=== PATIENT | female | born 1965 | race Caucasian/White ===

== ENCOUNTER 2024-08-20 00:32 | Emergency (ER) | payer OTHER ==
--- OUTSIDE RECORDS SUMMARY | 2024-08-20 00:36 | XMS REPORT | Continuity of Care Document ---
Author Name Unknown Address [address] [place] [address] [facility] thconnect Address 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 Name Role Phone KATELYNN MCNEAL Primary Care Physician Unava ilable Miguelito Spring Attending Clinician Unavailable Shashank Larkin Attending Clinician Unavailable Libby Gates Attending Clinician Unavailable RADIOLOGY Attending Clinician Unavailable Noemy Attending Clinician UnavailDanielle Mcgraw Attending Clinician Unavailable Danielle Barragan Attending Clinician [phone] Ruel Infante Attending Clinician Unavailable Ra Hughes MD Attending Clinician [phone] Atilio Hutchinson MD Attending Clinician [phone] ATILIO HUTCHINSON Attending Clinician UnavailWILLIAN Dawson Attending Clinician UnavailWillian Velazquez MD Attending Clinician [phone] [facility] Attending Clinician Unavailable Millie Trinh Attending Clinician Unavailable Millie Trinh Attending Clinician [phone] [facility]An[facility] Attending Clinician Unavail able Katelynn Mcneal Attending Clinician [phone] GC_SEFP_Mrozinski_G Attending Clinician Unavaila ble Doctor Unassigned, [place] Attending Clinician U govindailSuyapa Shankar Attending Clinician UnavailADRIANA Celis Attending Clinician Unavailab Adriana Eckert Attending Clinician Lizzy Prado Admitting Clinician Unavailable Kerry_TREVOR Admitting Clinician Unavailchar e Physician, No Primary or Family Admitting Clinic isaiah Unavailable WILLIAN KUHN Admitting Clinician Unavaila ble GC_BATC_Foholly-Gunatashae Admitting Clinician Unavail able GC_SEFP_Mrozinski_G Admitting Clinician Unavaila ble Payers Payer Name Policy Type Policy Number Effective Date Expirati on Date Source [employer] NO PREMIUM HMO [id number] 2023 00:00:00 [employer] (MEDICARE REPLACEMENT HMO) [id number] 2022 00:00:00 [employer] (MEDICARE REPLACEMENT/ADVANTA GE - PPO) [id number] Problems Condition Name Condition Details Condition Category Status Onset Date Resolution Date Last Treatment Date Treating Clinician Comments Source Major depressive disorder Major Depressive Disorder Problem Active 2023-08 00:00: 00 [facility] Lumbar radiculopa thy Lumbar Radiculopa thy Problem Active 2023-08 0 00:00: 00 [facility] Pain in right foot Pain in Right Foot Problem Active 2023-08 0 00:00: 00 [facility] Insomnia Insomnia Problem Active 5-14 00:00: 00 [facility] Opioid dependence Opioid Dependence Problem Active 2022-08 0-03 00:00: 00 [facility] Bilateral ingrowing nail of toe of feet Bilateral Ingrowing Nail of Toe of Feet Problem Active 2022-08 0-03 00:00: 00 [facility] Stomatitis Stomatitis Problem Active 9-06 00:00: 00 [facility] Acute vaginitis Acute Vaginitis Problem Active 6-30 00:00: 00 [facility] Acute sinusitis Acute Sinusitis Problem Active 3-22 00:00: 00 [facility] Seasonal allergic rhinitis Seasonal Allergic Rhinitis Problem Active 11-13 00:00: 00 [facility] Low back pain Low Back Pain Problem Active 11-13 00:00: 00 [facility] 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 2 diabetes mellitus Peripheral Neuropathy Due to Type 2 Diabetes Mellitus Problem Active 11-13 00:00: 00 [facility] Type 2 diabetes mellitus Type 2 Diabetes Mellitus Problem Active 11-06 00:00: 00 [facility] Depressive disorder Depressive Disorder Problem Active 11-06 00:00: 00 [facility] Malaise and fatigue Malaise and Fatigue Problem Active 11-06 00:00: 00 [facility] Hyperglyce monik due to type 2 diabetes mellitus Hyperglyce monik Due to Type 2 Diabetes Mellitus Problem Active 2021-08 00:00: 00 [facility] Candidiasi s of vagina Candidiasi s of Vagina Problem Active 2021-08 00:00: 00 [facility] Diabetic peripheral neuropathy Diabetic Peripheral Neuropathy Problem Active 2021-08 00:00: 00 [facility] Type 2 diabetes mellitus Type 2 Diabetes Mellitus Problem Active 02-18 00:00: 00 [facility] Hyperlipid emia Hyperlipid emia Problem Active 02-18 00:00: 00 [facility] Anxiety Anxiety Problem Active 02-18 00:00: 00 [facility] Neuropathy Neuropathy Problem Active 02-18 00:00: 00 [facility] Gastroesop hageal reflux disease without esophagiti s Gastroesop hageal Reflux Disease without Esophagiti s Problem Active 02-18 00:00: 00 [facility] Cirrhosis of liver Cirrhosis of Liver Problem Active 02-18 00:00: 00 [facility] History of alcoholism History of Alcoholism Problem Active 02-18 00:00: 00 [facility] No known active problems No known active problems Disease [facility] Allergies, Adverse Reactions, Alerts Allergy Name Allergy Type Status Severity Reaction(s) Onset Date Inactive Date Treating Clinician Comments Source No Known Allergie s DA Active U 12-18 00:00: 00 [facility] No Known Allergie s DA Active U 09-19 00:00: 00 [facility] NO KNOWN ALLERGIE S Drug Class Active [facility] Family History Family Member Diagnosis Comments Start Date Stop Date Sourc e Mother [id number] 2021-10-02 00:00:00 2021-10-02 00:00:00 [facility] Mother Cancer, lung 2021-10-02 00:00:00 2021-10-02 00:00:00 [facility] Social History Social Habit Start Date Stop Date Quantity Comments Source Health-related Behavior 2021-10-02 00:00:00 [facility] Alcohol intake [facility] Sex Assigned At Female [facility] Exposure to SARS-CoV-2 (event) 2022-06-03 00:00:00 2022-06-13 09:26:00 Not sure [facility] Tobacco use and exposure 2022-06-13 00:00:00 2022-06-13 00:00:00 Smokeless tobacco non-user [facility] Smoking Status Start Date Stop Date Source Never Smoker [facility] Practice Unknown if ever smoked [facility] Medications Ordered Medication Name Filled Medication Name Start Date Stop Date Current Medication? Ordering Clinician Indication Dosage Frequency Signature (SIG) Comments Components Source iodixanoL (VISIPAQUE 270-150 mL) injection 80 mL 05-08 16:47: 00 05-08 16:48 :00 No [id number] 80mL 80 mL, Intravenou s, ONCE, 1 dose, On Fri05/08/22 at 1200, Routine [facility] ibuprofen 800 mg tablet TAKE 1 TABLET BY MOUTH EVERY DAY NEEDED ibuprofen 800 mg tablet TAKE 1 TABLET BY MOUTH EVERY DAY NEEDED 04-11 00:00: 00 No 1 Q1D ibuprofen 800 mg tablet TAKE 1 TABLET BY MOUTH EVERY DAY NEEDED [facility] ONETOUCH DELICA PLUS LANCET 33 gauge Misc 03-26 00:00: 00 Yes USE TO TEST BLOOD GLUCOSE TWICE DAILY [facility] ibuprofen 800 mg tablet 01-08 00:00: 00 No 1{table t} QD take 1 tablet by oral route every day with food as needed [Pat Resp = 0 pct;] [facility] s diazepam 5 mg tablet 10-02 10:48: 00 No take 1 tablet by oral route every evening as needed for severe anxiety. [Pat Resp = 0 pct;] [facility] s gabapentin 300 mg ORAL TABLET 10-02 00:00: 00 No Take 1 capsule by mouth (3) three times daily. [Pat Resp = 0 pct;] [facility] s Latuda 80 mg tablet 10-02 00:00: 00 No take 1 tablet by oral route every evening with food (at least 350 calories) [Pat Resp = 0 pct;] [facility] s omeprazole 20 mg ORAL CAPSULE 10-02 00:00: 00 No Take 1 capsules by mouth daily. [Pat Resp = 0 pct;] [facility] s hydroxyzine pamoate 50 mg capsule 10-02 00:00: 00 No take 1 capsule by oral route 3 times every day as needed for anxiety [Pat Resp = 0 pct;] [facility] lamotrigine 200 mg tablet 10-02 00:00: 00 No take 1 tablet by oral route every evening. [Pat Resp = 0 pct;] [facility] trazodone 100 mg tablet 10-02 00:00: 00 No take 2 tablet by oral route daily [Pat Resp = 0 pct;] [facility] metformin 500 mg tablet 10-02 00:00: 00 No 2{table t} Q1D take 2 tablet by oral route every day with morning and evening meals [Pat Resp = 0 pct;] [facility] oxycodone-a cetaminophe n 7.5 mg-325 mg tablet 10-02 00:00: 00 10-02 00:00 :00 No take 1 tablet by oral by mouth twice daily as needed for pain. [Pat Resp = 0 pct;] [facility] Accu-Chek Guide test strips USE CHECK BLOOD SUGAR EVERY DAY Accu-Chek Guide test strips USE CHECK BLOOD SUGAR EVERY DAY No Accu-Chek Guide test strips USE CHECK BLOOD SUGAR EVERY DAY [facility] Accu-Chek Softclix Lancets Accu-Chek Softclix Lancets No Accu-Chek Softclix Lancets [facility] fluconazole 100 mg tablet fluconazole 100 mg tablet No fluconazol e 100 mg tablet [facility] fluconazole 150 mg tablet Take 1 tablet by oral route for 1 day. fluconazole 150 mg tablet Take 1 tablet by oral route for 1 day. No 1 fluconazol e 150 mg tablet Take 1 tablet by oral route for 1 day. [facility] hydrochloro thiazide 25 mg tablet hydrochloro thiazide 25 mg tablet No hydrochlor othiazide 25 mg tablet [facility] hydroxyzine pamoate 50 mg capsule TAKE 1 CAPSULE BY MOUTH THREE TIMES DAILY NEEDED FOR ANXIETY hydroxyzine pamoate 50 mg capsule TAKE 1 CAPSULE BY MOUTH THREE TIMES DAILY NEEDED FOR ANXIETY No hydroxyzin e pamoate 50 mg capsule TAKE 1 CAPSULE BY MOUTH THREE TIMES DAILY NEEDED FOR ANXIETY [facility] ibuprofen 800 mg tablet TAKE 1 TABLET BY MOUTH EVERY DAY WITH FOOD NEEDED ibuprofen 800 mg tablet TAKE 1 TABLET BY MOUTH EVERY DAY WITH FOOD NEEDED No ibuprofen 800 mg tablet TAKE 1 TABLET BY MOUTH EVERY DAY WITH FOOD NEEDED [facility] Jardiance 25 mg tablet Jardiance 25 mg tablet No Jardiance 25 mg tablet [facility] metformin 500 mg tablet TAKE 2 TABLETS BY MOUTH EVERY DAY WITH THE MORNING AND EVENING MEAL metformin 500 mg tablet TAKE 2 TABLETS BY MOUTH EVERY DAY WITH THE MORNING AND EVENING MEAL No metformin 500 mg tablet TAKE 2 TABLETS BY MOUTH EVERY DAY WITH THE MORNING AND EVENING MEAL [facility] omeprazole 40 mg capsule,del ayed release Take 1 capsule every day by oral route for 90 days. omeprazole 40 mg capsule,del ayed release Take 1 capsule every day by oral route for 90 days. No 1capsul e(s) Q1D omeprazole 40 mg capsule,de layed release Take 1 capsule every day by oral route for 90 days. [facility] rosuvastati n 20 mg tablet rosuvastati n 20 mg tablet No rosuvastat in 20 mg tablet [facility] True Metrix Glucose Meter USE DIRECTED True Metrix Glucose Meter USE DIRECTED No True Metrix Glucose Meter USE DIRECTED [facility] True Metrix Glucose Test Strip USE DIRECTED TO TEST BLOOD GLUCOSE LEVELS True Metrix Glucose Test Strip USE DIRECTED TO TEST BLOOD GLUCOSE LEVELS No True Metrix Glucose Test Strip USE DIRECTED TO TEST BLOOD GLUCOSE LEVELS [facility] Accu-Chek Softclix Lancets USE TO CHECK BLOOD SUGAR DIRECTED DAILY Accu-Chek Softclix Lancets USE TO CHECK BLOOD SUGAR DIRECTED DAILY No Accu-Chek Softclix Lancets USE TO CHECK BLOOD SUGAR DIRECTED DAILY [facility] gabapentin 300 mg capsule TAKE 1 CAPSULE BY MOUTH THREE TIMES DAILY gabapentin 300 mg capsule TAKE 1 CAPSULE BY MOUTH THREE TIMES DAILY No gabapentin 300 mg capsule TAKE 1 CAPSULE BY MOUTH THREE TIMES DAILY [facility] hydrocodone 10 mg-acetamin ophen 325 mg tablet TAKE 1 TABLET BY MOUTH TWICE DAILY NEEDED FOR PAIN. MAX 2 PER DAY hydrocodone 10 mg-acetamin ophen 325 mg tablet TAKE 1 TABLET BY MOUTH TWICE DAILY NEEDED FOR PAIN. MAX 2 PER DAY No hydrocodon e 10 mg-acetami nophen 325 mg tablet TAKE 1 TABLET BY MOUTH TWICE DAILY NEEDED FOR PAIN. MAX 2 PER DAY [facility] Jardiance 25 mg tablet TAKE 1 TABLET BY MOUTH EVERY DAY Jardiance 25 mg tablet TAKE 1 TABLET BY MOUTH EVERY DAY No 1 Q1D Jardiance 25 mg tablet TAKE 1 TABLET BY MOUTH EVERY DAY [facility] metformin 500 mg tablet TAKE 2 TABLETS BY MOUTH EVERY DAY WITH THE MORNING AND EVENING MEAL metformin 500 mg tablet TAKE 2 TABLETS BY MOUTH EVERY DAY WITH THE MORNING AND EVENING MEAL No metformin 500 mg tablet TAKE 2 TABLETS BY MOUTH EVERY DAY WITH THE MORNING AND EVENING MEAL [facility] methocarbam ol 500 mg tablet TAKE 1 TABLET BY MOUTH TWICE DAILY NEEDED methocarbam ol 500 mg tablet TAKE 1 TABLET BY MOUTH TWICE DAILY NEEDED No methocarba mol 500 mg tablet TAKE 1 TABLET BY MOUTH TWICE DAILY NEEDED [facility] omeprazole 40 mg capsule,del ayed release TAKE 1 CAPSULE BY MOUTH EVERY DAY omeprazole 40 mg capsule,del ayed release TAKE 1 CAPSULE BY MOUTH EVERY DAY No omeprazole 40 mg capsule,de layed release TAKE 1 CAPSULE BY MOUTH EVERY DAY [facility] OneTouch Delica Plus Lancet 30 gauge DIRECTED TWICE DAILY OneTouch Delica Plus Lancet 30 gauge DIRECTED TWICE DAILY No OneTouch Delica Plus Lancet 30 gauge DIRECTED TWICE DAILY [facility] OneTouch Delica Plus Lancet 33 gauge USE TO CHECK BLOOD SUGAR TWICE DAILY OneTouch Delica Plus Lancet 33 gauge USE TO CHECK BLOOD SUGAR TWICE DAILY No OneTouch Delica Plus Lancet 33 gauge USE TO CHECK BLOOD SUGAR TWICE DAILY [facility] OneTouch Verio test strips CHECK BLOOD SUGAR TWICE DAILY OneTouch Verio test strips CHECK BLOOD SUGAR TWICE DAILY No OneTouch Verio test strips CHECK BLOOD SUGAR TWICE DAILY [facility] rosuvastati n 20 mg tablet TAKE 1 TABLET BY MOUTH EVERY DAY rosuvastati n 20 mg tablet TAKE 1 TABLET BY MOUTH EVERY DAY No rosuvastat in 20 mg tablet TAKE 1 TABLET BY MOUTH EVERY DAY [facility] Alcohol Pads Use as directed Alcohol Pads Use as directed No Alcohol Pads Use as directed [facility] trazodone 50 mg tablet TAKE 1 TABLET BY MOUTH EVERY DAY AT BEDTIME FOR INSOMNIA trazodone 50 mg tablet TAKE 1 TABLET BY MOUTH EVERY DAY AT BEDTIME FOR INSOMNIA No 1 Q1D trazodone 50 mg tablet TAKE 1 TABLET BY MOUTH EVERY DAY AT BEDTIME FOR INSOMNIA [facility] naloxone 4 mg/actuatio n nasal spray CALL 911. SPR CONTENTS OF ONE SPRAYER (0.1ML) INTO ONE NOSTRIL. REPEAT IN 2-3 MIN IF SYMPTOMS OF OPIOID EMERGENCY PERSIST, ALTERNATE NOSTRILS naloxone 4 mg/actuatio n nasal spray CALL 911. SPR CONTENTS OF ONE SPRAYER (0.1ML) INTO ONE NOSTRIL. REPEAT IN 2-3 MIN IF SYMPTOMS OF OPIOID EMERGENCY PERSIST, ALTERNATE NOSTRILS No naloxone 4 mg/actuati on nasal spray CALL 911. SPR CONTENTS OF ONE SPRAYER (0.1ML) INTO ONE NOSTRIL. REPEAT IN 2-3 MIN IF SYMPTOMS OF OPIOID EMERGENCY PERSIST, ALTERNATE NOSTRILS [facility] fluconazole 150 mg tablet 1 po qd x 3 days fluconazole 150 mg tablet 1 po qd x 3 days No fluconazol e 150 mg tablet 1 po qd x 3 days [facility] ondansetron 4 mg disintegrat ing tablet DISSOLVE 1 TABLET ON THE TONGUE EVERY 6 HOURS NEEDED FOR NAUSEA OR VOMITING ondansetron 4 mg disintegrat ing tablet DISSOLVE 1 TABLET ON THE TONGUE EVERY 6 HOURS NEEDED FOR NAUSEA OR VOMITING No ondansetro n 4 mg disintegra ting tablet DISSOLVE 1 TABLET ON THE TONGUE EVERY 6 HOURS NEEDED FOR NAUSEA OR VOMITING [facility] OneTouch Verio Flex Meter USE DIRECTED TO CHECK BLOOD GLUCOSE OneTouch Verio Flex Meter USE DIRECTED TO CHECK BLOOD GLUCOSE No OneTouch Verio Flex Meter USE DIRECTED TO CHECK BLOOD GLUCOSE [facility] Vital Signs Vital Name Observation Time Observation Value Comments S ource BP Diastolic 2024-06-24 00:00:00 79 mm[Hg] [facility] Height 2024-06-24 00:00:00 67 [in_i] [facility] Body Weight 2024-06-24 00:00:00 169 [lb_av] [facility] BMI (Body Mass Index) 2024-06-24 00:00:00 26.5 kg/m2 [facility] BP Systolic 2024-06-24 00:00:00 145 mm[Hg] [facility] Body Weight 2024-05-11 00:00:00 174 [lb_av] [facility] BMI (Body Mass Index) 2024-05-11 00:00:00 27.3 kg/m2 [facility] Height 2024-05-11 00:00:00 67 [in_i] [facility] BP Diastolic 2024-05-11 00:00:00 74 mm[Hg] [facility] BP Systolic 2024-05-11 00:00:00 148 mm[Hg] [facility] Height 2024-01-06 00:00:00 67 [in_i] [facility] BP Diastolic 2024-01-06 00:00:00 79 mm[Hg] [facility] Body Weight 2024-01-06 00:00:00 171 [lb_av] [facility] BP Systolic 2024-01-06 00:00:00 146 mm[Hg] [facility] BMI (Body Mass Index) 2024-01-06 00:00:00 26.8 kg/m2 [facility] Body Weight 2023-05-27 00:00:00 175 [lb_av] [facility] BP Diastolic 2023-05-27 00:00:00 80 mm[Hg] [facility] BP Systolic 2023-05-27 00:00:00 132 mm[Hg] [facility] Height 2023-05-27 00:00:00 67 [in_i] [facility] BMI (Body Mass Index) 2023-05-27 00:00:00 27.4 kg/m2 [facility] BP Systolic 2023-04-30 00:00:00 132 mm[Hg] [facility] Body Weight 2023-04-30 00:00:00 178 [lb_av] [facility] BP Diastolic 2023-04-30 00:00:00 78 mm[Hg] [facility] BMI (Body Mass Index) 2023-04-30 00:00:00 27.9 kg/m2 [facility] Height 2023-04-30 00:00:00 67 [in_i] [facility] BP Diastolic 2023-02-21 00:00:00 77 mm[Hg] [facility] Height 2023-02-21 00:00:00 67 [in_i] [facility] BMI (Body Mass Index) 2023-02-21 00:00:00 28.5 kg/m2 [facility] BP Systolic 2023-02-21 00:00:00 137 mm[Hg] [facility] Body Weight 2023-02-21 00:00:00 182 [lb_av] [facility] BP Diastolic 2022-11-13 00:00:00 79 mm[Hg] [facility] Height 2022-11-13 00:00:00 67 [in_i] [facility] BMI (Body Mass Index) 2022-11-13 00:00:00 29 kg/m2 [facility] BP Systolic 2022-11-13 00:00:00 131 mm[Hg] [facility] Body Weight 2022-11-13 00:00:00 185 [lb_av] [facility] BP Diastolic 2022-11-06 00:00:00 78 mm[Hg] [facility] Height 2022-11-06 00:00:00 67 [in_i] [facility] BMI (Body Mass Index) 2022-11-06 00:00:00 29.4 kg/m2 [facility] BP Systolic 2022-11-06 00:00:00 142 mm[Hg] [facility] Body Weight 2022-11-06 00:00:00 188 [lb_av] [facility] BP Diastolic 2022-08-21 00:00:00 83 mm[Hg] [facility] Height 2022-08-21 00:00:00 67 [in_i] [facility] BMI (Body Mass Index) 2022-08-21 00:00:00 29 kg/m2 [facility] BP Systolic 2022-08-21 00:00:00 141 mm[Hg] [facility] Body Weight 2022-08-21 00:00:00 185 [lb_av] [facility] BP Diastolic 2022-06-14 00:00:00 80 mm[Hg] [facility] Height 2022-06-14 00:00:00 67 [in_i] [facility] BMI (Body Mass Index) 2022-06-14 00:00:00 26.9 kg/m2 [facility] BP Systolic 2022-06-14 00:00:00 110 mm[Hg] [facility] Body Weight 2022-06-14 00:00:00 172 [lb_av] [facility] Systolic blood pressure 2022-06-13 14:39:00 133 mm[Hg] [facility] Diastolic blood pressure 2022-06-13 14:39:00 81 mm[Hg] [facility] Heart rate 2022-06-13 14:39:00 61 /min [facility] Body temperature 2022-06-13 14:39:00 36.78 Amber [facility] Body height 2022-06-13 14:39:[address] [facility] Body weight 2022-06-13 14:39:[address] [facility] BMI 2022-06-13 14:39:00 27.00 kg/m2 [facility] Systolic blood pressure 2022-04-11 12:43:00 128 mm[Hg] [facility] Diastolic blood pressure 2022-04-11 12:43:00 57 mm[Hg] [facility] Heart rate 2022-04-11 12:43:00 73 /min [facility] Body temperature 2022-04-11 12:43:00 37 Amber [facility] Respiratory rate 2022-04-11 12:43:00 16 /min [facility] Body height 2022-04-11 12:43:[address] [facility] Body weight 2022-04-11 12:43:[address] [facility] BMI 2022-04-11 12:43:00 26.94 kg/m2 [facility] BP Diastolic 2022-02-18 00:00:00 74 mm[Hg] [facility] Height 2022-02-18 00:00:00 67 [in_i] [facility] BMI (Body Mass Index) 2022-02-18 00:00:00 28 kg/m2 [facility] BP Systolic 2022-02-18 00:00:00 134 mm[Hg] [facility] Body Weight 2022-02-18 00:00:00 2864 [oz_av] [facility] Procedures Procedure Date / Time Performed Performing Clinician Source MRI, lumbar spine, w/o contrast 2024-06-24 00:00:00 [facility] MAMMO, screening, digital, bilateral, w/ CAD 2024-01-06 00:00:00 [facility] US, liver 2023-05-27 00:00:00 [facility] MAMMO, screening, digital, bilateral, w/ CAD 2023-02-21 00:00:00 [facility] MAMMO, 3D rendering, w/o image post-processing 2022-08-21 00:00:00 [facility] MAMMO, screening, digital, bilateral 2022-08-12 00:00:00 [facility] MAMMO, screening, bilateral 2022-08-12 00:00:00 [facility] Nominal Fee 2022-01-07 00:00:00 [facility] Urinalysis, Auto W/O Scope 2022-01-07 00:00:00 [facility] Established Patient Office Visit-Level Three 2022-01-07 00:00:00 [facility] Trichomonas and Tracy / Wet [place] (T&M) 2022-01-07 00:00:00 [facility] Urinalysis culture and sensitivity 2022-01-07 00:00:00 [facility] Chylmd Trach DNA Amp Probe 2022-01-07 00:00:00 [facility] N.Gonorrhea DNA Amp Prob 2022-01-07 00:00:00 [facility] MICROALBUMIN QUANTITATIVE 2022-01-07 00:00:00 [facility] Albumin Creatinine Ratio 2022-01-07 00:00:00 [facility] Hepatitis Panel - Acute 2022-01-07 00:00:00 [facility] Hemoglobin A1C 2022-01-07 00:00:00 [facility] Complete Blood Count (CBC) 2022-01-07 00:00:00 [facility] Syphilis Test, qualitative 2022-01-07 00:00:00 [facility] HIV-1 antigen(s), HIV-1 and HIV-2 antibodies, single result 2022-01-07 00:00:00 [facility] Comprehensive Metabolic Panel 2022-01-07 00:00:00 [facility] Nominal Fee 2021-10-02 00:00:00 [facility] New Patient Office Visit-Level Four 2021-10-02 00:00:00 [facility] Plan of Care Planned Activity Planned Date Details Comments Source Diagnostic Test Pending 2022-02-18 00:00:00 thyroid panel, serum [code = thyroid panel, serum] [facility] Test Pending 2022-02-18 00:00:00 HbA1c (hemoglobin A1c), blood [code = HbA1c (hemoglobin A1c), blood] [facility] Test Pending 2022-02-18 00:00:00 CMP, serum or plasma [code = CMP, serum or plasma] [facility] Test Pending 2022-02-18 00:00:00 CBC w/ auto diff [code = CBC w/ auto diff] [facility] Test Pending 2022-02-18 00:00:00 lipid panel, serum [code = lipid panel, serum] [facility] Pending 2022-02-18 00:00:00 hepatitis (A+B+C) panel, serum [code = hepatitis (A+B+C) panel, serum] [facility] Test Pending 2022-02-18 00:00:00 uric acid, serum or plasma [code = uric acid, serum or plasma] [facility] Test Pending 2022-02-18 00:00:00 Malonate [Mass/volume] in Serum [code = 2603-9] [facility] Encounters Start Date/Time End Date/Time Encounter Type Admission Type Attending [facility] Care Facility Care Department Encounter ID Source 2024-06-21 12:59:00 Outpatient Miguelito Spring CLS [facility] [id number] [facility] 2022-05-23 12:35:12 Outpatient CHW CHW [id number] [facility] 2024-08-15 22:58:00 2024-08-16 00:55:00 Emergency EM [facility] [id number] [facility] 2024-06-24 00:00:00 2024-06-24 00:00:00 Piper Khalil MD: [address] [place] [address] , [address], [place] [address] , Ph. [facility] - VM_HOU_Beel er Manske [id number] [facility] 2024-05-11 00:00:00 2024-05-11 00:00:00 Taylor Muhammad NP: [address] [place] [address] , [address], [place] [address] , Ph. [facility] - VM_HOU_Beel er Manske [id number] [facility] 2024-05-07 12:57:00 2024-05-07 18:50:00 Emergency EM Libby Gates [facility] [id number] [facility] 2024-01-06 00:00:00 2024-01-06 00:00:00 Lizzy Prado MD: [address] [place] [address] , [address], [place] [address] , Ph. [facility] - VM_HOU_Beel er Manske [id number] [facility] 2023-06-09 00:00:00 2023-06-09 00:00:00 Outpatient R [facility] [id number] [facility] 2023-06-03 00:00:00 2023-06-03 00:00:00 Outpatient Balitbit_R_ HOU_MD VFP VFP [id number] [facility] 2023-05-27 00:00:00 2023-05-27 00:00:00 Outpatient Balitbit_R_ HOU_MD VFP VFP [id number] [facility] 2023-05-27 00:00:00 2023-05-27 00:00:00 Outpatient VFP VFP [id number] [facility] 2023-05-27 00:00:00 2023-05-27 00:00:00 Lizzy Prado MD: [address] [place] [address] , [address], [place] [address] , Ph. VFP [place] - [facility] - [place] - VM_HOU_Beel er Manske [id number] [facility] 2023-05-16 00:00:00 2023-05-16 00:00:00 Outpatient VFP VFP [id number] [facility] 2023-05-16 00:00:00 2023-05-16 00:00:00 Outpatient VFP VFP [id number] [facility] 2023-04-30 00:00:00 2023-04-30 00:00:00 Gilberto Kathleen MD: [address] [place] [address] , [address], [place] [address] , Ph. VFP [place] - [facility] - [place] - VM_HOU_Beel er Manske [id number] [facility] 2023-04-24 11:34:17 2023-04-24 11:34:17 Outpatient SFA SFA [id number] Zachary Dean 2023-04-12 00:00:00 2023-04-12 00:00:00 Outpatient Balitbit_R_ HOU_MD VFP VFP [id number] [facility] 2023-04-12 00:00:00 2023-04-12 00:00:00 Outpatient Balitbit_R_ HOU_MD VFP VFP [id number] [facility] 2023-04-12 00:00:00 2023-04-12 00:00:00 Outpatient Balitbit_R_ HOU_MD VFP VFP [id number] [facility] 2023-03-25 13:44:00 2023-03-25 13:44:00 Outpatient Danielle Barragan CHW CHW [id number] [facility] 2023-03-25 13:44:00 2023-03-25 13:44:00 Outpatient Miryam Barraganela CHW [id number] 9af [id number] [facility] 2023-03-12 00:00:00 2023-03-12 00:00:00 Outpatient Balitbit_R_ HOU_MD VFP VFP [id number] [facility] 2023-02-21 00:00:00 2023-02-21 00:00:00 Outpatient Balitbit_R_ HOU_MD VFP VFP [id number] [facility] 2023-02-21 00:00:00 2023-02-21 00:00:00 Outpatient Balitbit_R_ HOU_MD VFP VFP [id number] [facility] 2023-02-21 00:00:00 2023-02-21 00:00:00 Outpatient Balitbit_R_ HOU_MD VFP VFP [id number] [facility] 2023-02-21 00:00:00 2023-02-21 00:00:00 Outpatient VFP VFP [id number] [facility] 2023-02-21 00:00:00 2023-02-21 00:00:00 Lizzy Prado MD: [address] , [address], [place] [address] , Ph. VFP [place] - [facility] - [place] - VM_AKIKOU_Beeliz er George [id number] [facility] 2023-02-20 00:00:00 2023-02-20 00:00:00 Outpatient Balitbit_R VFP VFP [id number] [facility] 2022-12-18 19:07:00 2022-12-18 19:55:00 Emergency EM Ruel Infante HCACL TERS [id number] [facility] 2022-11-18 00:00:00 2022-11-18 00:00:00 Outpatient VFP VFP [id number] [facility] 2022-11-18 00:00:00 2022-11-18 00:00:00 Outpatient VFP VFP [id number] [facility] 2022-11-18 00:00:00 2022-11-18 00:00:00 Outpatient VFP VFP [id number] [facility] 2022-11-13 00:00:00 2022-11-13 00:00:00 Rene Kat MD: [address] [place] [address] , [address], [place] [address] , Ph. VFP [facility] - [place] - VM_HOU_Beel er Manske [id number] [facility] 2022-11-06 00:00:00 2022-11-06 00:00:00 Outpatient Balitbit_R VFP VFP [id number] [facility] 2022-11-06 00:00:00 2022-11-06 00:00:00 Outpatient Balitbit_R VFP VFP [id number] [facility] 2022-11-06 00:00:00 2022-11-06 00:00:00 Gilberto Kathleen MD: [address] [place] [address] , [address], [place] [address] , Ph. VFP [facility] - [place] - VM_HOU_Beel er Manske [id number] [facility] 2022-11-05 00:00:00 2022-11-05 00:00:00 Outpatient Balitbit_R VFP VFP [id number] [facility] 2022-09-19 17:20:00 2022-09-19 19:04:00 Emergency EM Shashank Larkin [facility] [id number] 37 [facility] 2022-08-21 00:00:00 2022-08-21 00:00:00 Outpatient Balitbit_R VFP VFP [id number] [facility] 2022-08-21 00:00:00 2022-08-21 00:00:00 Outpatient Balitbit_R VFP VFP [id number] [facility] 2022-08-21 00:00:00 2022-08-21 00:00:00 Vandana Gates, GAMING INVESTIGATOR: [address] [place] [address] , [address], [place] [address] , Ph. VFP [facility] - [place] - VM_HOU_Beel er Manske [id number] [facility] 2022-07-04 00:00:00 2022-07-04 00:00:00 Outpatient Balitbit_R VFP VFP [id number] [facility] 2022-06-14 00:00:00 2022-06-14 00:00:00 Outpatient Balitbit_R VFP VFP [id number] [facility] 2022-06-14 00:00:00 2022-06-14 00:00:00 Lizzy Prado MD: [address] [place] [address] , [address], [place] [address] , Ph. VFP [facility] - [place] - VM_HOU_Beel er Manske [id number] [facility] 2022-06-13 09:30:00 2022-06-13 10:00:00 Office Visit Ra Hughes, [facility] [id number] 350.1.13.10 [id number] [id number] [facility] 2022-06-13 09:30:00 2022-06-13 09:30:00 Outpatient ATILIO [facility]RISTIAN[facility] [id number] [facility] 2022-05-14 00:00:00 2022-05-14 00:00:00 Outpatient Balitbit_R VFP VFP [id number] Tyrone harris 2022-05-08 11:33:54 2022-05-08 23:59:00 Outpatient WILLIAN WALKER [facility] [id number] [facility] 2022-05-08 11:33:54 2022-05-08 23:59:00 Hospital Encounter [facility] 1..840.114 350.1.13.10 [id number] [id number] [facility] 2022-04-11 09:30:00 2022-04-11 09:45:00 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 Visit [facility] 1..840.114 350.1.13.10 [id number] [id number] [facility] 2022-04-11 09:30:00 2022-04-11 09:30:00 Outpatient WILL[facility] WALK[facility] [id number] [facility] 2022-04-11 08:30:00 2022-04-11 09:00:00 [facility]..840.114 350.1.13.10 [id number] [id number] [facility] 2022-04-11 08:30:00 2022-04-11 08:30:00 Outpatient WILL[facility] WALK[facility] [id number] [facility] 2022-04-11 08:30:00 2022-04-11 08:30:00 Outpatient [facility] [id number] [facility] 2022-03-09 07:11:00 2022-03-09 07:11:00 Outpatient Millie Trinh W CHW [id number] [facility] 2022-03-09 07:11:00 2022-03-09 07:11:00 Outpatient Millie Trinh [id number] [id number] [facility] 2022-02-24 11:37:00 2022-02-24 11:37:00 Outpatient GC_BATC_Fow [facility] [id number] [facility] 2022-02-22 05:18:00 2022-02-22 05:18:00 Outpatient GC_BATC_[facility]ow [facility] [id number] [facility] 2022-02-22 00:00:00 2022-02-22 00:00:00 Outpatient Katelynn Mosley [facility] [id number] 2022-02-22 00:00:00 2022-02-22 00:00:00 Katelynn huynh MD: [address] [address] , Ph. Critical access hospital - GC_BATC_Gul f [facility] Office [id number] [facility] 2022-02-18 03:23:00 2022-02-18 03:23:00 Outpatient GC_BATC_[facility]ow [facility] [id number] [facility] 2022-02-18 00:00:00 2022-02-18 00:00:00 Katelynn huynh MD: [address] [place] [address] , Ph. Critical access hospital - GC_BATC_Gul f [facility] Office [id number] [facility] 2022-02-18 00:00:00 2022-02-18 00:00:00 Outpatient Katelynn Mosley [facility] [id number] 2022-02-14 04:13:00 2022-02-14 04:13:00 Outpatient GC_BATC_Foradha Ordonez [facility] PRIV [id number] [facility] 2022-02-14 02:56:00 2022-02-14 02:56:00 Outpatient GC_SEFP_Mro roby_Sourav [facility] PRIV [id number] [facility] 2022-01-08 23:08:00 2022-01-08 23:08:00 Outpatient Millie Trinh CHRadha [id number] [facility] 2022-01-08 23:08:00 2022-01-08 23:08:00 Outpatient Millie Trinh [id number] [id number] [facility] 2022-01-07 14:00:00 2022-01-07 14:00:00 Outpatient Millie Trinh CHRadha [id number] [facility] 2022-01-07 14:00:00 2022-01-07 14:00:00 Stephan holland Patient Office Visit-Millie Muniz [id number] [id number] [facility] 2022-01-07 09:07:00 2022-01-07 09:07:00 Outpatient Millie Trinh CHRadha [id number] [facility] 2021-11-13 14:36:00 2021-11-13 14:36:00 Outpatient Millie Trinh CHRadha [id number] [facility] 2021-11-05 12:30:00 2021-11-05 12:30:00 Outpatient Caitlyndominiquesami Oliviadariel MACIEL W [id number] [facility] 2021-10-30 15:57:00 2021-10-30 15:57:00 Outpatient Caitlyndominiquesami Millie MACIEL W [id number] [facility] 2021-10-17 12:00:00 2021-10-17 12:00:00 Outpatient Millie Trinh W [id number] [facility] 2021-10-08 08:11:00 2021-10-08 08:11:00 Outpatient Millie Trinh W [id number] [facility] 2021-10-08 00:00:00 2021-10-08 00:00:00 Orders Only Doctor Unassigned, [place] [facility] [id number] 350.1.13.10 [id number] [id number] [facility] 2021-10-02 14:39:00 2021-10-02 14:39:00 Outpatient Suyapa Salmon W [id number] [facility] 2021-10-02 14:39:00 2021-10-02 14:39:00 Outpatient Suyapa Salmon Radha [id number] [facility] 2021-10-02 10:00:00 2021-10-02 10:00:00 Outpatient Millie Trinh Radha [id number] [facility] 2021-10-02 10:00:00 2021-10-02 10:00:00 New Patient Office Visit-Millie Kennedy [id number] [facility] 2021-09-04 12:08:00 2021-09-04 14:54:00 Emergency X ADRIANA TRIVEDI [facility] ERT [id number] [facility] 2021-09-04 12:08:00 2021-09-04 14:54:00 Emergency Adriana Trivedi [facility] [id number] 350.1.13.10 4.2.7.2.686 [id number] [facility] Results Test Description Test Time Test Comments Results Result Co mments Source HEPATIC FUNCTION PANEL [id number] 23:58:00* Test Item Value Reference Range Interpretation Comme [facility] TOTAL PROTEIN (test code = PROT) 7.2 g/dL 5.7-8.2 N ALBUMIN (test code = ALB) 4.4 g/dL 3.4-5.0 N BILIRUBIN TOTAL (test code = BILT) 0.30 mg/dL 0.30-1.20 N BILIRUBIN DIRECT (test code = BILD) 0.1 mg/dL 0.05-0.3 N SGOT/AST (test code = AST) 18 U/L 0-33 N SGPT/ALT (test code = ALT) 19 U/L 10-49 N ALKALINE PHOSPHATASE TOTAL ( test code = ALKP) 80 U/L 46-116 N [id number] 23:58:00* Test Item Value Reference Range Interpretation Comme [facility] LIPASE (test code = LIP) 26 IU/L 12-53 N TROP-I HIGH [id number] 23:58:00* Test Item Value Reference Range Interpretation Comme [facility] TROP-I HIGH SENSITIVITY (test code = TROPIHS) <3 ng/L 0-34 N CAUTION: Units o f the current TROPI-HS test methodology(ng/L) differ from the prior test methodology (ng/mL) by afactor of 1000. 99th Percentile: Females: 0 - 34 ng/L Males: 0 - 54 ng/LThese results were obtained using [employer] CI 1900 TnIHreagent. Results from different methodologies should not becompared to one another as quantitative results may vary bymethod. CBC W/AUTO [id number] 23:41:00* Test Item Value Reference Range Interpretation Comme nts WHITE BLOOD CELL (test code = WBC) 5.4 K/mm3 4.5-11.0 N RED BLOOD CELL (test code = RBC) 4.42 M/mm3 3.80-5.20 N HEMOGLOBIN (test code = HGB) 13.5 gm/dL 12.0-16.0 N HEMATOCRIT (test code = HCT) 39.8 % 36.0-48.0 N MEAN CELL VOLUME (test code = MCV) 90.0 UM3 82.0-99.0 N MEAN CELL HGB (test code = MCH) 30.5 UUG 25.5-32.5 N MEAN CELL HGB CONCETRATION (test code = MCHC) 33.9 gm/dL 29.0-35.5 N RED CELL DISTRIBUTION WIDTH (test code = RDW) 12.6 % 11.5-15.0 N RED CELL DISTRIBUTION WIDTH SD (test code = RDW-SD) 42.6 fL 34.8-50.2 N PLATELET COUNT (test code = PLT) 189 K/mm3 150-400 N MEAN PLATELET VOLUME (test c ode = MPV) 9.9 fl 7.4-10.4 N NEUTROPHIL % (test code = NT%) 49.4 % 49.0-76.0 N IMMATURE GRANULOCYTE % (test code = IG%) 0.2 % 0.0-0.4 N LYMPHOCYTE % (test code = LY%) 37.1 % 23.0-38.0 N MONOCYTE % (test code = MO%) 9.2 % 1.0-10.0 N EOSINOPHIL % (test code = EO%) 3.5 % 1.0-5.0 N BASOPHIL % (test code = BA%) 0.6 % 0.0-1.0 N NEUTROPHIL # (test code = NT#) 2.7 K/mm3 2.4-6.3 N IMMATURE GRANULOCYTE # (test code = IG#) 0.01 x10 3/uL 0.00-0.07 N LYMPHOCYTE # (test code = LY#) 2.0 K/mm3 1.2-4.0 N MONOCYTE # (test code = MO#) 0.5 K/mm3 0.0-0.6 N EOSINOPHIL # (test code = EO#) 0.2 K/MM3 0.0-0.7 N BASOPHIL # (test code = BA#) 0.0 K/mm3 0.0-0.2 N UA RFLX MICR CULT IF [id number] 23:33:00* Test Item Value Reference Range Interpretation Comme nts UA COLOR (test code = COLU) STRAW UA APPEARANCE (test code = APPU) CLEAR UA GLUCOSE DIPSTICK (test code = DGLUU) 1000 mg/dl mg/dl NORMAL A UA BILIRUBIN DIPSTICK (test code = BILU) NEGATIVE mg/dL NEGATIVE UA KETONE DIPSTICK (test code = KETU) NEGATIVE mg/dl NEGATIVE UA SPECIFIC GRAVITY (test code = SGU) 1.010 1.000-1.030 UA BLOOD DIPSTICK (test code = EASTON) NEGATIVE Ebenezer/micL NEGATIVE UA PH DIPSTICK (test code = JOS) 6.0 5.0-9.0 UA PROTEIN DIPSTICK (test code = PROU) NEGATIVE mg/dl NEGATIVE UA UROBILINIOGEN DIPSTICK (test code = URO) NORMAL mg/dl NORMAL UA NITRITE DIPSTICK (test code = GRACE) NEGATIVE NEGATIVE UA LEUKOCYTE ESTERASE DIPSTICK (test code = LEUU) NEGATIVE Tripp/micL NEGATIVE UA WBC (test code = WBCU) 0-3 WBC/HPF NONE UA RBC (test code = RBCU) 0-2 RBC/HPF 0-3 UA EPITHELIAL CELLS (test code = EPIU) 0-3 EPI/HPF 0-3 UA BACTERIA (test code = BACU) FEW NONE Indication for culture: Flank PainSpecimen Description: CLEAN CATCHUA RFLX MICR CULT IF [id number] 16:50:00* Test Item Value Reference Range Interpretation Comme nts UA COLOR (test code = COLU) STRAW UA APPEARANCE (test code = APPU) CLEAR UA GLUCOSE DIPSTICK (test code = DGLUU) NORMAL mg/dl NORMAL UA BILIRUBIN DIPSTICK (test code = BILU) NEGATIVE mg/dL NEGATIVE UA KETONE DIPSTICK (test code = KETU) NEGATIVE mg/dl NEGATIVE UA SPECIFIC GRAVITY (test code = SGU) 1.010 1.000-1.030 UA BLOOD DIPSTICK (test code = EASTON) NEGATIVE Ebenezer/micL NEGATIVE UA PH DIPSTICK (test code = JOS) 5.0 5.0-9.0 UA PROTEIN DIPSTICK (test code = PROU) NEGATIVE mg/dl NEGATIVE UA UROBILINIOGEN DIPSTICK (test code = URO) NORMAL mg/dl NORMAL UA NITRITE DIPSTICK (test code = GRACE) NEGATIVE NEGATIVE UA LEUKOCYTE ESTERASE DIPSTICK (test code = LEUU) NEGATIVE Tripp/micL NEGATIVE UA WBC (test code = WBCU) 1-3 WBC/HPF NONE UA RBC (test code = RBCU) 0-3 RBC/HPF 0-3 UA EPITHELIAL CELLS (test code = EPIU) 5-10 EPI/HPF 0-3 A UA BACTERIA (test code = BACU) TRACE NONE UA YEAST (test code = YEASTU) FEW NEGATIVE BUDDING Indication for culture: Dysuria/FrequencySpecimen Description: CLEAN CATCHUR HCG [id number] 16:50:00* Test Item Value Reference Range Interpretation Comme nts UR HCG QUAL (test code = HCGQLU) NEGATIVE NEGATIVE Indication for culture: Dysuria/FrequencySpecimen Description: CLEAN CATCHBASIC METABOLIC [id number] 13:49:00* Test Item Value Reference Range Interpretation Comme nts SODIUM (test code = NA) 139 mmol/l 134.0-147.0 N POTASSIUM (test code = K) 4.0 mmol/L 3.6-5.2 N CHLORIDE (test code = CL) 103 mmol/l 98.0-107.0 N CARBON DIOXIDE (test code = CO2) 23.9 mmol/l 21.0-33.0 N ANION GAP (test code = GAP) 16.1 0-20 N GLUCOSE (test code = GLU) 110 mg/dl 70.0-110.0 N BLOOD UREA NITROGEN (test code = BUN) 6 mg/dl 7.0-18.0 L GLOMERULAR FILTRATION RATE (test code = GFR) 80 mL/min The Glomerular Filtration Rate is a calculated parameterbased on serum Creatinine, patient age and sex. GFR valuesless than 60 mL/min/1.73 square meters are indicative ofChronic Kidney Disease. Values less than 15 mL/min/1.73square meters indicate Kidney failure. The calculation forGFR is based on the CKD-EPI (2020) calculation. This formulais race indifferent and is the recommended formula for GFRby the National Kidney Foundation for Adults.The GFR will not calculate if the sex is unknown or if thepatient's age is <18 years. CREATININE (test code = CREAT) 0.85 mg/dL 0.60-1.30 N ESTIMATED CREAT CLEARANCE (test code = ECRCL) 66 mL/min >30 CALCIUM (test code = CA) 9.2 mg/dl 8.0-10.5 N HEPATIC FUNCTION PANEL [id number] 13:49:00* Test Item Value Reference Range Interpretation Comme nts TOTAL PROTEIN (test code = PROT) 7.4 gm/dL 6.4-8.2 N ALBUMIN (test code = ALB) 3.9 gm/dl 3.2-4.7 N BILIRUBIN TOTAL (test code = BILT) 0.3 mg/dl 0.0-1.0 N BILIRUBIN DIRECT (test code = BILD) 0.1 mg/dl 0.0-0.3 N SGOT/AST (test code = AST) 15 Units/L 15-37 N SGPT/ALT (test code = ALT) 22 Units/L 12.0-78.0 N ALKALINE PHOSPHATASE TOTAL ( test code = ALKP) 85 Units/L 50.0-136.0 N [id number] 13:49:00* Test Item Value Reference Range Interpretation Comme nts LIPASE (test code = LIP) 27 Units/L 16-77 N CBC W/AUTO [id number] 13:34:00* Test Item Value Reference Range Interpretation Comme nts WHITE BLOOD CELL (test code = WBC) 6.9 K/mm3 4.5-11.0 N RED BLOOD CELL (test code = RBC) 4.53 M/mm3 3.80-5.20 N HEMOGLOBIN (test code = HGB) 13.9 gm/dL 12.0-16.0 N HEMATOCRIT (test code = HCT) 40.8 % 36.0-48.0 N MEAN CELL VOLUME (test code = MCV) 90.1 UM3 82.0-99.0 N MEAN CELL HGB (test code = MCH) 30.7 UUG 25.5-32.5 N MEAN CELL HGB CONCETRATION (test code = MCHC) 34.1 gm/dL 29.0-35.5 N RED CELL DISTRIBUTION WIDTH (test code = RDW) 12.9 % 11.5-15.0 N RED CELL DISTRIBUTION WIDTH SD (test code = RDW-SD) 42.5 fL 34.8-50.2 N PLATELET COUNT (test code = PLT) 229 K/mm3 150-400 N MEAN PLATELET VOLUME (test c ode = MPV) 10.1 fl 7.4-10.4 N NEUTROPHIL % (test code = NT%) 68.4 % 49.0-76.0 N IMMATURE GRANULOCYTE % (test code = IG%) 0.1 % 0.0-0.4 N LYMPHOCYTE % (test code = LY%) 19.5 % 23.0-38.0 L MONOCYTE % (test code = MO%) 9.1 % 1.0-10.0 N EOSINOPHIL % (test code = EO%) 2.3 % 1.0-5.0 N BASOPHIL % (test code = BA%) 0.6 % 0.0-1.0 N NUCLEATED RBC % (test code = NRBC%) 0.0 % 0.0-0.1 N NEUTROPHIL # (test code = NT#) 4.7 K/mm3 2.4-6.3 N IMMATURE GRANULOCYTE # (test code = IG#) 0.01 x10 3/uL 0.00-0.07 N LYMPHOCYTE # (test code = LY#) 1.4 K/mm3 1.2-4.0 N MONOCYTE # (test code = MO#) 0.6 K/mm3 0.0-0.6 N EOSINOPHIL # (test code = EO#) 0.2 K/MM3 0.0-0.7 N BASOPHIL # (test code = BA#) 0.0 K/mm3 0.0-0.2 N NUCLEATED RBC # (test code = NRBC#) 0.00 X10 3uL 0.00-0.01 N - XR FOOT 3 + V [id number] 19:45:00 [facility] : 1965 Sex: F FAX: Lizzy Ray MD [phone] [place]: St: REG FAX: Ruel Infante MD Name: MAX LUQUE [place] FSED : 1965 Age/S: 57/F Unit #: [id number] [place] Phys: Ruel Infante MD Acct: [id number] Dis Date: Status: REG ER PHONE #: Exam Date: 12/18/20221921 FAX #: Reason: lateral midfoot pain, trauma EXAMS: CPT CODE: [id number] XR FOOT 3 + V RT [address]60 EXAM: - XR FOOT 3 + V RT LOCATION: H57 HISTORY: 57 years-year old Female with lateral midfoot pain, trauma COMPARISON: None available time of interpretation. FINDINGS: Frontal, oblique, and lateral views of the right foot are provided. No acute fracture or malalignment. No soft tissue findings are apparent. IMPRESSION: No acute fracture. at 194 Reported and signed by:Dinesh Ang M.D. CC: Lizzy Prado MD; Ruel Infante MD Technologist: Natasha Antoine, RT(R)(CT) Trnscrd Date/Time/By: 12/18/2022 (1944) : By: [email or web address] Orig Print D/T: S: 12/18/2022 (301) PAGE 1 Signed ReportHemoglobin A1c measurement device [id number] 17:19:00* Test Item Value Reference Range Interpretation Comme [facility] Hemoglobin A1c/Hemoglobin.to anthony in Blood (test code = 4548-4) 6.4 % 5.7-6.4 [facility] - [id number] 17:18:00* Test Item Value Reference Range Interpretation Comme [facility] Interpretation UA test performed using: (test code = Interpretation UA test performed using:) Automated device/analyzer ([id number],QW) Interpretation Color (test code = Interpretation Color) Yellow Interpretation Clarity (test code = Interpretation Clarity) Clear Interpretation Glucose (mg/dL) (test code = Interpretation Glucose (mg/dL)) (Greater than or equal to) >= 1000 Interpretation Bilirubin (test code = Interpretation Bilirubin) Negative Interpretation Ketone (mg/dL) (test code = Interpretation Ketone (mg/dL)) Negative Interpretation Specific Miller (test code = Interpretation Specific Miller) 1.010 Interpretation Occult Blood (test code = Interpretation Occult Blood) Negative Interpretation pH (test code = Interpretation pH) 6 Interpretation Protein (test code = Interpretation Protein) Negative Interpretation Urobilinogen (test code = Interpretation Urobilinogen) 0.2 Interpretation Nitrites (test code = Interpretation Nitrites) Negative Interpretation Leukocytes (test code = Interpretation Leukocytes) Negative [id number] 18:17:00* Test Item Value Reference Range Interpretation Comme [facility] LIPASE (test code = LIP) 82 Units/L 65.0-230.0 N B-TYPE NATRIURETIC [id number] 18:17:00* Test Item Value Reference Range Interpretation Comme [facility] B-TYPE NATRIURETIC PEPTIDE ( test code = BNP) 46.2 PG/ML 5-100 N TROP-I HIGH [id number] 18:17:00* Test Item Value Reference Range Interpretation Comme [facility] TROP-I HIGH SENSITIVITY (test code = TROPIHS) 5.4 pg/mL 0.0-51.4 N CAUTION: Units o f the current TROPI-HS test methodology(pg/mL) differ from the prior test methodology (ng/mL) by afactor of 1000. 99th Percentile: Females: 0.0-51.4 pg/mL Males: 0.0-76.2 pg/mLThese results were obtained using [employer] TnIHreagent. Results from different methodologies should not becompared to one another as quantitative results may vary bymethod. BASIC METABOLIC [id number] 18:17:00* Test Item Value Reference Range Interpretation Comme nts SODIUM (test code = NA) 137 mmol/l 134.0-147.0 N POTASSIUM (test code = K) 4.1 mmol/L 3.6-5.2 N CHLORIDE (test code = CL) 100 mmol/l 98.0-107.0 N CARBON DIOXIDE (test code = CO2) 27.3 mmol/l 21.0-33.0 N ANION GAP (test code = GAP) 13.8 0-20 N GLUCOSE (test code = GLU) 113 mg/dl 70.0-110.0 H BLOOD UREA NITROGEN (test code = BUN) 12 mg/dl 7.0-18.0 N GLOMERULAR FILTRATION RATE (test code = GFR) 95 mL/min The Glomerular Filtration Rate is a calculated parameterbased on serum Creatinine, patient age and sex. GFR valuesless than 60 mL/min/1.73 square meters are indicative ofChronic Kidney Disease. Values less than 15 mL/min/1.73square meters indicate Kidney failure. The calculation forGFR is based on the CKD-EPI (2020) calculation. This formulais race indifferent and is the recommended formula for GFRby the National Kidney Foundation for Adults.The GFR will not calculate if the sex is unknown or if thepatient's age is <18 years. CREATININE (test code = CREAT) 0.74 mg/dL 0.60-1.30 N CALCIUM (test code = CA) 9.0 mg/dl 8.0-10.5 N ESTIMATED CREAT CLEARANCE (test code = ECRCL) 83 mL/min >30 HEPATIC FUNCTION PANEL [id number] 18:17:00* Test Item Value Reference Range Interpretation Comme nts TOTAL PROTEIN (test code = PROT) 7.1 GM/DL 6.0-8.1 N ALBUMIN (test code = ALB) 3.9 gm/dL 3.2-4.7 N BILIRUBIN TOTAL (test code = BILT) 0.2 mg/dl 0.0-1.0 N BILIRUBIN DIRECT (test code = BILD) 0.1 mg/dl 0.0-0.3 N SGOT/AST (test code = AST) 52 Units/L 15-37 H SGPT/ALT (test code = ALT) 90 Units/L 12.0-78.0 H ALKALINE PHOSPHATASE TOTAL ( test code = ALKP) 103 Units/L 50.0-136.0 N - XR CHEST 1 [id number] 18:06:00 [facility] 1965 Sex: F FAX:Shashank Larkin MD [place]: EM St: REG Name: MAX LUQUE [facility] : 1965 Age/S: 57/F [address] [facility] Unit #: [id number] Loc: E.ERS2 [place], [place] Phys: [place] [id number] Acct: [id number] Dis Date: Status: REG ER PHONE #: [phone] Exam Date: 09/19/20221756 FAX #: [phone] Reason: SOB EXAMS: CPT CODE: [id number] XR CHEST 1 V 26258 Location: H 77 EXAM: - XR CHEST 1 V DATE: 09/19/2022 5:44 PM HISTORY: SOB COMPARISON: None FINDINGS: No airspace consolidation or pleural effusions. No pneumothorax. The cardiovascular silhouette is within normal limits. No bony lesions. IMPRESSION: No acute cardiopulmonary abnormality. at 1806 Reported and signed by: TYREE JEFFERSON MD CC: Shashank Larkin MD Technologist: SHELLY ORTEGA Trnscrd Date/Time/By: 09/19/2022 (1805) : By: Steven PAGE 1 Signed Report FAX: Shashank Larkin MD [place]: St: REG ----- Name: MAX LUQUE [facility] : 1965 Age/S: 57/F [address] [facility] Unit #: [id number] Loc: E.[address] Phys: [place] [id number] Acct: [id number] Dis Date: Status: REG ER PHONE #: [phone] Exam Date: 09/19/2022 175 FAX #: [phone] Reason: SOB EXAMS: CPT CODE: [id number] XR CHEST 1 V 57394 (Continued) Orig Print D/T: S: 09/19/2022 (180) PAGE 2 Signed ReportPROTHROMBIN [id number] 18:04:00* Test Item Value Reference Range Interpretation Comme nts PROTHROMBIN TIME PATIENT (test code = PTP) 11.4 SECONDS 9.9-12.8 N INTERNATIONAL NORMAL RATIO (test code = INR) 1.0 0.89-1.14 N THE INR IS TO BE USED ONLY FOR MONITORING ORAL ANTICOAGULANTTHERAPY. THE FOLLOWING ARE SUGGESTED RANGES FROM THEAMERICAN COLLEGE OF CHEST PHYSICIANS:INDICATION INR VALUEPROPHYLAXIS OF VENOUS THROMBOSIS (ORTHOPEDIC SURGERY) 2.0 - 3.0PROPHYLAXIS OF VENOUS THROMBOSIS (OTHER THAN HIGH-RISK SURGERY) 2.0 - 3.0TREATMENT OF DEEP VEIN THROMBOSIS OR PULMONARY EMBOLISM 2.0 - 3.0PREVENTION OF SYSTEMIC EMBOLISM TISSUE HEART VALVES 2.0 - 3.0 ACUTE MYOCARDIAL INFARCTION (TO PREVENT SYSTEMIC EMBOLISM) 2.0 - 3.0 ACUTE MYOCARDIAL INFARCTION (TO PREVENT RECURRENT INFARCT) 2.5 - 3.0 VALVULAR HEART DISEASE 2.0 - 3.0 ATRIAL FIBRILATION 2.0 - 3.0BILEAFLET MECHANICAL VALVE IN AORTIC POSITION 2.0 - 3.0MECHANICAL PROSTHETIC VALVES (HIGH RISK) 2.5 - 3.5PRESENCE OF LUPUS ANTICOAGULANT OR ANTIPHOSPHOLIPID ANTIBODIES 2.5 - 3.5 THROMBOPLASTIN TIME [id number] 18:04:00* Test Item Value Reference Range Interpretation Comme nts THROMBOPLASTIN TIME PARTIAL (test code = PTT) 29.40 SECONDS 25.86-36.07 N [facility] Therapeutic Range - APTT of 55.8-85.4 secondscorrelates with plasma heparin concentration of 0.2-0.4 u/mL D-DIMER/[id number] 18:04:00* Test Item Value Reference Range Interpretation Comme nts D-DIMER/FSP (test code = DDIMER) <215 ng/mLFEU 0-500 N Thrombosis and/o r Pulmonary Embolism and the clinicalcut-off value for exclusion (500 ng/mL FEU) of theseconditions is validated by the [employer] professor of the method. A negative D-Dimer result when combined with a clinicalassessment of low pretest probability has been shown to havea high negative predictive value of DVT or PE. D-Dimer values >500 ng/mL FEU are not diagnostic for DVT,PE, or DIC without other confirmatory tests and appropriateclinical evaluations. CBC W/AUTO [id number] 17:58:00* Test Item Value Reference Range Interpretation Comme nts WHITE BLOOD CELL (test code = WBC) 5.2 K/mm3 4.5-11.0 N RED BLOOD CELL (test code = RBC) 4.39 M/mm3 3.80-5.20 N HEMOGLOBIN (test code = HGB) 13.0 gm/dL 12.0-16.0 N HEMATOCRIT (test code = HCT) 38.8 % 36.0-48.0 N MEAN CELL VOLUME (test code = MCV) 88.4 UM3 82.0-99.0 N MEAN CELL HGB (test code = MCH) 29.6 UUG 25.5-32.5 N MEAN CELL HGB CONCETRATION (test code = MCHC) 33.5 gm/dL 29.0-35.5 N RED CELL DISTRIBUTION WIDTH (test code = RDW) 13.0 % 11.5-15.0 N RED CELL DISTRIBUTION WIDTH SD (test code = RDW-SD) 42.1 fL 34.8-50.2 N PLATELET COUNT (test code = PLT) 202 K/mm3 150-400 N MEAN PLATELET VOLUME (test c ode = MPV) 11.0 fl 7.4-10.4 H NEUTROPHIL % (test code = NT%) 57.2 % 49.0-76.0 N IMMATURE GRANULOCYTE % (test code = IG%) 0.0 % 0.0-0.4 N LYMPHOCYTE % (test code = LY%) 33.7 % 23.0-38.0 N MONOCYTE % (test code = MO%) 6.8 % 1.0-10.0 N EOSINOPHIL % (test code = EO%) 1.9 % 1.0-5.0 N BASOPHIL % (test code = BA%) 0.4 % 0.0-1.0 N NUCLEATED RBC % (test code = NRBC%) 0.0 % 0.0-0.1 N NEUTROPHIL # (test code = NT#) 3.0 K/mm3 2.4-6.3 N IMMATURE GRANULOCYTE # (test code = IG#) 0.00 x10 3/uL 0.00-0.07 N LYMPHOCYTE # (test code = LY#) 1.7 K/mm3 1.2-4.0 N MONOCYTE # (test code = MO#) 0.4 K/mm3 0.0-0.6 N EOSINOPHIL # (test code = EO#) 0.1 K/MM3 0.0-0.7 N BASOPHIL # (test code = BA#) 0.0 K/mm3 0.0-0.2 N NUCLEATED RBC # (test code = NRBC#) 0.00 X10 3uL 0.00-0.01 N Bacteria identified in Urine by [id number] 00:00:00* Test Item Value Reference Range Interpretation Comme nts culture, urine (test code = culture, urine) see below no [facility] - [id number] 00:00:00* Test Item Value Reference Range Interpretation Comme nts Hepatitis A virus Ab [Presen ce] in Serum by Immunoassay (test code = 01655-4) non-reactive non-reactive Hepatitis B virus surface Ab [Presence] in Serum by Immunoassay (test code = 66479-5) non-reactive non-reactive Hepatitis B virus surface Ag [Presence] in Serum or Plasma by Immunoassay (test code = 5196-1) non-reactive non-reactive Hepatitis B virus core Ab [Presence] in Serum or Plasma by Immunoassay (test code = 70478-8) non-reactive non-reactive Hepatitis C virus Ab [Presen ce] in Serum or Plasma by Immunoassay (test code = 48984-2) non-reactive non-reactive Hepatitis C virus Ab Signal/Cutoff in Serum or Plasma by Immunoassay (test code = 46691-7) 0.02 <1.00 [facility] Medicalthyroid panel, [id number] 00:00:00* Test Item Value Reference Range Interpretation Comme nts Triiodothyronine resin uptak e (T3RU) in Serum or Plasma (test code = 3050-2) 29 % 22-35 Thyroxine (T4) [Mass/volume] in Serum or Plasma (test code = 3026-2) 9.0 mcg/dL 5.1-11.9 Thyroxine (T4) free index in Serum or Plasma by calculation (test code = 32350-1) 2.6 1.4-3.8 Thyrotropin [Units/volume] i n Serum or Plasma (test code = 3016-3) 1.18 mIU/L [facility] MedicalLipid 1995 panel - Serum or [id number] 00:00:00* Test Item Value Reference Range Interpretation Comme nts Cholesterol [Mass/volume] in Serum or Plasma (test code = 2093-3) 144 mg/dL <200 Cholesterol in HDL [Mass/volume] in Serum or Plasma (test code = 2085-9) 52 mg/dL See_Comment [Automated messa ge] The system which generated this result transmitted reference range: > or = 50. The reference range was not used to interpret this result as normal/abnormal. Triglyceride [Mass/volume] in Serum or Plasma (test code = 2571-8) 174 mg/dL <150 H Cholesterol in LDL [Mass/volume] in Serum or Plasma by calculation (test code = 20445-1) 67 mg/dL (calc) Cholesterol.total/Cho lesterol in HDL [Mass Ratio] in Serum or Plasma (test code = 9830-1) 2.8 (calc) <5.0 Cholesterol non HDL [Mass/volume] in Serum or Plasma (test code = 29459-7) 92 mg/dL (calc) <130 [facility] metabolic 2000 panel - Serum or [id number] 00:00:00* Test Item Value Reference Range Interpretation Comme nts Glucose [Mass/volume] in Serum or Plasma (test code = 2345-7) 103 mg/dL 65-99 H Urea nitrogen [Mass/volume] in Serum or Plasma (test code = 3094-0) 18 mg/dL 7-25 Creatinine [Mass/volume] in Serum or Plasma (test code = 2160-0) 0.77 mg/dL 0.50-1.05 Glomerular filtration rate/1.73 sq M.predicted among non-blacks [Volume Rate/Area] in Serum, Plasma or Blood by Creatinine-based formula (CKD-EPI) (test code = 79020-0) 87 mL/min/1.73m2 See_Comment [Automate d message] The system which generated this result transmitted reference range: > or = 60. The reference range was not used to interpret this result as normal/abnormal. Glomerular filtration rate/1.73 sq M.predicted among blacks [Volume Rate/Area] in Serum, Plasma or Blood by Creatinine-based formula (CKD-EPI) (test code = 63490-4) 101 mL/min/1.73m2 See_Comment [Automated message] The system which generated this result transmitted reference range: > or = 60. The reference range was not used to interpret this result as normal/abnormal. Urea nitrogen/Creatinine [Mass Ratio] in Serum or Plasma (test code = 3097-3) not applicable 6-22 Sodium [Moles/volume] in Serum or Plasma (test code = 2951-2) 140 mmol/L 135-146 Potassium [Moles/volume] in Serum or Plasma (test code = 2823-3) 4.3 mmol/L 3.5-5.3 Chloride [Moles/volume] in Serum or Plasma (test code = 2075-0) 104 mmol/L 98-110 Carbon dioxide, total [Moles/volume] in Serum or Plasma (test code = 2027-9) 27 mmol/L 20-32 Calcium [Mass/volume] in Serum or Plasma (test code = 64366-0) 9.8 mg/dL 8.6-10.4 Protein [Mass/volume] in Serum or Plasma (test code = 2885-2) 7.1 g/dL 6.1-8.1 Albumin [Mass/volume] in Serum or Plasma (test code = 1751-7) 4.5 g/dL 3.6-5.1 Globulin [Mass/volume] in Serum by calculation (test code = 04949-3) 2.6 g/dL (calc) 1.9-3.7 Albumin/Globulin [Mass Ratio] in Serum or Plasma (test code = 1759-0) 1.7 (calc) 1.0-2.5 Bilirubin.total [Mass/volume] in Serum or Plasma (test code = 1974-) 0.5 mg/dL 0.2-1.2 Alkaline phosphatase [Enzymatic activity/volume] in Serum or Plasma (test code = 6768-6) 72 U/L 37-153 Aspartate aminotransferase [Enzymatic activity/volume] in Serum or Plasma (test code = 1920-8) 23 U/L 10-35 Alanine aminotransferase [Enzymatic activity/volume] in Serum or Plasma (test code = 1742-6) 32 U/L 6-29 H [facility] MedicalHemoglobin A1c/Hemoglobin.total in [id number] 00:00:00* Test Item Value Reference Range Interpretation Comme nts Hemoglobin A1c/Hemoglobin.total in Blood (test code = 4548-4) 6.2 % of total HGB <5.7 H [facility] MedicalUrate [Mass/volume] in Serum or [id number] 00:00:00* Test Item Value Reference Range Interpretation Comme nts Urate [Mass/volume] in Serum or Plasma (test code = 3084-1) 4.1 mg/dL 2.5-7.0 [facility] W Auto Differential panel - [id number] 00:00:00* Test Item Value Reference Range Interpretation Comme nts Leukocytes [#/volume] in Blood by Automated count (test code = 6690-2) 5.7 thousand/uL 3.8-10.8 Erythrocytes [#/volume] in Blood by Automated count (test code = 789-8) 5.01 million/uL 3.80-5.10 Hemoglobin [Mass/volume] in Blood (test code = 718-7) 14.7 g/dL 11.7-15.5 Hematocrit [Volume Fraction] of Blood by Automated count (test code = 4544-3) 43.8 % 35.0-45.0 Erythrocyte mean corpuscular volume [Entitic volume] by Automated count (test code = 787-2) 87.4 fL 80.0-100.0 Erythrocyte mean corpuscular hemoglobin [Entitic mass] by Automated count (test code = 785-6) 29.3 pg 27.0-33.0 Erythrocyte mean corpuscular hemoglobin concentration [Mass/volume] by Automated count (test code = 786-4) 33.6 g/dL 32.0-36.0 Erythrocyte distribution width [Ratio] by Automated count (test code = 788-0) 12.8 % 11.0-15.0 Platelets [#/volume] in Bloo d by Automated count (test code = 777-3) 205 thousand/uL 140-400 Platelet mean volume [Entiti c volume] in Blood by Mike (test code = 776-5) 11.2 fL 7.5-12.5 Neutrophils [#/volume] in Blood by Automated count (test code = 751-8) 3431 cells/uL 1246-4035 Lymphocytes [#/volume] in Blood by Automated count (test code = 731-0) 1693 cells/uL 850-3900 Monocytes [#/volume] in Bloo d by Automated count (test code = 742-7) 416 cells/uL 200-950 Eosinophils [#/volume] in Blood by Automated count (test code = 711-2) 131 cells/uL 15-500 Basophils [#/volume] in Bloo d by Automated count (test code = 704-7) 29 cells/uL 0-200 Neutrophils/100 leukocytes i n Blood by Automated count (test code = 770-8) 60.2 % Lymphocytes/100 leukocytes i n Blood by Automated count (test code = 736-9) 29.7 % Monocytes/100 leukocytes in Blood by Automated count (test code = 5905-5) 7.3 % Eosinophils/100 leukocytes i n Blood by Automated count (test code = 713-8) 2.3 % Basophils/100 leukocytes in Blood by Automated count (test code = 706-2) 0.5 % [facility]
[2024-08-20 01:06] LABS: Specific Gravity 1.025 (1.005-1.030); Sqamous Epithelial <5 /HPF (None Seen); Urine Bacteria None Seen /HPF (<20); Urine Bilirubin NEGATIVE (Negative); Urine Blood Negative (Negative); Urine Clarity Clear (Clear); Urine Color Colorless (Yellow); Urine Culture Reflex Order NOT NEEDED; Urine Glucose 4+ (Over) (Negative); Urine Ketones NEGATIVE (Negative); Urine Microscopic Reflex YN ORDER UMIC; Urine Nitrite NEGATIVE (Negative); Urine Protein NEGATIVE (Negative); Urine RBC None Seen /HPF (None Seen); Urine Urobilinogen Normal (Normal); Urine WBC <5 /HPF (<5); Urine pH 7.5 (5.0-7.0)
[2024-08-20 01:11] LABS: Absolute Eosinophils 0.2 K/uL (0-0.5); Absolute Lymphocytes (CBC) 1.4 K/uL (0.7-4.9); Absolute Monocytes 0.8 K/uL (0.1-1.3); Absolute Neutrophil 6.9 K/uL (1.8-8.0); Basophils % 0.4 % (0-1.3); Eosinophils % 1.8 % (0-4.4); Hematocrit 44.1 % (36.0-45.0); Hemoglobin 14.6 g/dL (12.0-15.0); Lymphocytes % 14.9 % (15.3-44.8); MCH 30.2 pg (27.0-35.0); MCV 91.5 fL (80-100); MPV 8.6 fL (7.6-11.3); Monocytes % 8.3 % (3.3-12.3); Neutrophils % 74.6 % (41.7-73.7); Platelets 203 thou/uL (152-406); RBC Red Blood Cell Count 4.82 M/uL (3.86-4.86); Red Cell Distribution Width 12.7 % (12.1-15.2)
[2024-08-20] MEDS ORDERED: PROMETHAZINE 25 MG TABLET ONE (01:18)
[2024-08-20] MEDS ORDERED: methocarbamoL 500 MG TAB ONE (01:18)
[2024-08-20] MEDS ORDERED: KETOROLAC 30 MG/ML INJ ONE (01:18)
[2024-08-20] MEDS ORDERED: HYDROCODONE/APAP 5/325 MG TAB ONE (01:19)
[2024-08-20] MEDS ORDERED: NA CHLORIDE 0.9% 1,000 ML ONE (01:20)
[2024-08-20 01:54] LABS: ALT/SGPT 21 U/L (13-56); Albumin 3.5 g/dL (3.4-5.0); Albumin/Globulin Ratio 0.9 (1.1-1.8); Alkaline Phosphatase 107 U/L (45-117); Anion Gap 6.7 mEq/L (5.0-15.0); BUN Blood Urea Nitrogen 13 mg/dL (7-18); Bicarbonate 28 mEq/L (21-32); Bilirubin Total 0.2 mg/dL (0.2-1.0); Globulin 3.9 g/dL (2.3-3.5); Glomerular Filtration Rate 102 ml/min (=/>90); Glucose Level 106 mg/dL (74-106); Lipase 39 U/L (13-75); Protein, Total 7.4 g/dL (6.4-8.2); Sodium Level 139 mEq/L (136-145)
[2024-08-20 01:57] LABS: AST/SGOT 15 U/L (15-37); C-Reactive Protein < 2.90 mg/L (<3.00); Potassium 3.7 mEq/L (3.5-5.1)
--- NOTE | 2024-08-20 04:36 | RAD REPORT ---
EXAM: CT Chest, Abdomen and Pelvis With Intravenous Contrast CLINICAL HISTORY: The patient is 59 years old and is Female; Chest pain. TECHNIQUE: Axial computed tomography images of the chest, abdomen and pelvis with intravenous contr ast. Sagittal and coronal reformatted images were created and reviewed. This CT exam was performed using one or more of the following dose reduction techniques: automated exposure control, adjustment of the mA and/or kV according to patient size, and/or use of iterative reconstruction technique. COMPARISON: No relevant prior studies available. FINDINGS: CHEST: Lungs: No groundglass opacities or consolidation to suggest pneumonia. No mass. Pleural space: Unremarkable. No significant effusion. No pneumothorax. Heart: Unremarkable. No cardiomegaly. No significant pericardial effusion. No significant c oronary artery calcifications. ABDOMEN: Liver: Unremarkable. No mass. Gallbladder and bile ducts: Unremarkable. No calcified stones. No ductal dilation. Pancreas: No findings to suggest acute pancreatitis. No mass visualized. No ductal dilation. Spleen: Unremarkable. No splenomegaly. Adrenals: Unremarkable. No mass. Kidneys and ureters: Unremarkable. No hydronephrosis. No solid mass. Stomach and bowel: No bowel dilatation or obstruction. No bowel wall thickening. Proximal gastric wall thickening versus artifact of incomplete distention, with the latter fa vored. PELVIS: Appendix: The visualized appendix is normal. No pericecal inflammation to suggest acute appendici tis. Bladder: Unremarkable. No mass. Reproductive: Unremarkable as visualized. CHEST, ABDOMEN and PELVIS: Intraperitoneal space: Unremarkable. No significant fluid collection. No free air. Bones/joints: No acute vertebral fracture. L5-S1 degenerative disc disease. No dislocation. Soft tissues: No axillary adenopathy. Vasculature: Unremarkable. No aortic aneurysm. Lymph nodes: Enlarged periportal lymph nodes. Enlarged hilar lymph nodes, right greater than left. The largest right hilar lymph node is 2. 3 cm in transverse dimension. Enlarged subcarinal lymph node. Otherwise multiple non-pathologically enlarged mediastinal lymph nodes. IMPRESSION: 1. Intrathoracic adenopathy as above. No acute cardiopulmonary process. 2. No acute obstructive or inflammatory process identified. Normal appendix. 3. Enlarged periportal lymph nodes. Electronically signed by: Janee Mac MD 08/20/2024 04:23 AM [facility] [place] Due to temporary technical issues with the [employer] reporting system, reports are being zoltan d by the in-house radiologist without review as a courtesy to ensure prompt reporting the interpreting radiologist is fully responsible for the content of the report. Transcribed Date/Time: 08/20/2024 4:35 AM
[2024-08-20] MEDS ORDERED: METHYLPREDNISOLONE 125 MG INJ ONE (05:36)
--- NOTE | 2024-08-20 05:36 | ER ---
Nurse's Notes [facility] Name: Catrina Pandya Age: 59 yrs Sex: Female : 1965 Arrival Date: 08/20/2024 Time: 00:32 Bed 5 Private MD: Diagnosis: Acute Left Flank Musculoskeletal pain Presentation: 08/20 00:47 Chief complaint: Patient states: left sided abdominal pain radiating to left flank X7 lg3 days. Coronavirus screen: Client denies travel out of the [place] in the last 14 days. At this time, the client does not indicate any symptoms associated with coronavirus-19. Ebola Screen: No symptoms or risks identified at this time. Initial Sepsis Screen: Does the patient meet any 2 criteria? No. Patient's initial sepsis screen is negative. Does the patient have a suspected source of infection? No. Patient's initial sepsis screen is negative. Risk Assessment: Do you want to hurt yourself or someone else? Patient reports no desire to harm self or others. Onset of symptoms was August 14, 2024. 00:47 Method Of Arrival: Ambulatory lg3 00:47 Acuity: STACY 3 lg3 Triage Assessment: 00:50 General: Appears in no apparent distress. uncomfortable, Behavior is calm, cooperative. lg3 Pain: Complains of pain in abdomen Pain radiates to left flank. EENT: No deficits noted. No signs and/or symptoms were reported regarding the EENT system. Neuro: No deficits noted. Moore Agitation-Sedation Scale (RASS): 0 - Alert and Calm Level of Consciousness is awake, alert, obeys commands, Oriented to person, place, time, situation. Cardiovascular: No deficits noted. Denies chest pain, shortness of breath, Capillary refill < 3 seconds Clubbing of nail beds is absent JVD is absent Patient's skin is warm and dry. Respiratory: No deficits noted. Airway is patent Respiratory effort is even, unlabored, Respiratory pattern is regular, symmetrical. GI: No deficits noted. Abdomen is round non-distended, Reports lower abdominal pain, upper abdominal pain. : No signs and/or symptoms were reported regarding the genitourinary system. Derm: No deficits noted. No signs and/or symptoms reported regarding the dermatologic system. Skin is intact, is healthy with good turgor, Skin is dry, Skin is normal, Skin temperature is warm. Musculoskeletal: No deficits noted. Circulation, motion, and sensation intact. Range of motion: intact in all extremities. Historical: - Allergies: 00:50 No Known Allergies; lg3 - Home Meds: 00:50 Metformin Oral [Active]; [place] Oral [Active]; Jardiance oral [Active]; rosuvastatin lg3 oral [Active]; - PMHx: 00:50 Diabetes mellitus; Hypercholesterolemia; lg3 - PSHx: 00:50 Ligation of fallopian tube; lg3 - Immunization history:: Adult Immunizations up to date. - Infectious Disease History:: Denies. - Social history:: Smoking status: Patient denies any tobacco usage or history of. Patient uses alcohol, occasionally. Patient/guardian denies using street drugs. - Family history:: not pertinent. Screenin:24 [facility] ED Fall Risk Assessment (Adult) History of falling in the last 3 months, cp4 including since admission No falls in past 3 months (0 pts) Confusion or Disorientation No (0 pts) Intoxicated or Sedated No (0 pts) Impaired Gait No (0 pts) Mobility Assist Device Used No (0 pt) Altered Elimination No (0 pt) Score/Fall Risk Level 0 - 2 = Low Risk Oriented to surroundings, Maintained a safe environment, Assessed \T\ reinforced patient's understanding of fall precautions, Hourly rounding (assess needs \T\ fall precautionary measures) done. Abuse screen: Denies threats or abuse. Nutritional screening: No deficits noted. Tuberculosis screening: No symptoms or risk factors identified. Assessment: 01:24 General: Appears in no apparent distress. uncomfortable, Behavior is calm, cooperative, cp4 appropriate for age. Pain: Complains of pain in abdomen. Neuro: Level of Consciousness is awake, alert, obeys commands, Oriented to person, place, time, situation. Cardiovascular: Patient's skin is warm and dry. Respiratory: Airway is patent Respiratory effort is even, unlabored. GI: Abdomen is round non-distended. GI: Bowel sounds present X 4 quads. Abd is soft and non tender X 4 quads. Reports lower abdominal pain, upper abdominal pain. : No signs and/or symptoms were reported regarding the genitourinary system. EENT: No signs and/or symptoms were reported regarding the EENT system. Derm: No signs and/or symptoms reported regarding the dermatologic system. Musculoskeletal: No signs and/or symptoms reported regarding the musculoskeletal system. 04:43 Reassessment: Patient appears in no apparent distress at this time. Patient and/or bm8 family updated on plan of care and expected duration. Pain level reassessed. Patient is alert, oriented x 3, equal unlabored respirations, skin warm/dry/pink. Patient denies pain at this time. Patient states feeling better. Patient states symptoms have improved. 05:13 Reassessment: No changes from previously documented assessment. pt is resting with eyes bm8 closed breathing is even unlabored with symmetrical rise and fall of chest. 05:45 Reassessment: No changes from previously documented assessment. Patient states feeling bm8 better. Patient states symptoms have improved. Vital Signs: 00:47 BP 155 / 92; Pulse 75; Resp 17 S; Temp 98.7(O); Pulse Ox 100% on R/A; Weight 84.82 kg lg3 (R); Height 5 ft. 7 in. (R); 03:21 BP 131 / 65; Pulse 65; Resp 18; Pulse Ox 98% ; cp4 05:13 BP 120 / 79; Pulse 64; Resp 16; Temp 98.7; Pulse Ox 96% ; Pain 0/10; bm8 05:45 BP 131 / 82; Pulse 61; Resp 17; Temp 98.5; Pulse Ox 98% ; Pain 0/10; bm8 00:47 Body Mass Index 29.29 (84.82 kg, 170.18 cm) lg3 05:13 Pain Scale: Adult bm8 05:45 Pain Scale: Adult bm8 [place] Coma Score: 05:13 Eye Response: spontaneous(4). Motor Response: obeys commands(6). Verbal Response: bm8 oriented(5). Total: 15. 05:45 Eye Response: spontaneous(4). Motor Response: obeys commands(6). Verbal Response: bm8 oriented(5). Total: 15. 21:02 Eye Response: spontaneous(4). Motor Response: obeys commands(6). Verbal Response: sp4 oriented(5). Total: 15. ED Course: 00:35 Patient arrived in ED. gm2 00:37 Jayant Durbin MD is Attending Physician. sp4 00:50 Triage completed. lg3 00:50 Arm band placed on right wrist. lg3 00:56 Initial lab(s) drawn, by me, sent to lab. Urine collected: clean catch specimen, clear. ay Inserted saline lock: 20 gauge in right antecubital area, using aseptic technique. 00:58 CBC with Diff Sent. ay 00:58 CMP Sent. ay 00:58 Lipase Sent. ay 00:58 Urinalysis w/ reflexes Sent. ay 01:24 Placed in gown. Bed in low position. Call light in reach. Side rails up X 1. cp4 01:24 No provider procedures requiring assistance completed. cp4 01:30 CMP Sent. ay 01:31 Lipase Sent. ay 02:27 CT Chest, Abdomen, Pelvis - W/Contrast In Process Unspecified. EDMS 04:50 Hunter Jorge, RN is Primary Nurse. bm8 05:45 Provided Education on: post er care. bm8 05:45 IV discontinued, intact, bleeding controlled, No redness/swelling at site. Pressure bm8 dressing applied. Administered Medications: 01:29 Drug: NS 0.9% IV 1000 ml IV at 1 bolus Per protocol; to be given as a bolus over 60 ay minutes Route: IV; Rate: 1 bolus; Site: right antecubital; 04:41 Follow up: Response: No adverse reaction; IV Status: Completed infusion; IV Intake: bm8 1000ml 01:30 Drug: Ketorolac IVP 30 mg IVP once Route: IVP; Site: right antecubital; ay 04:42 Follow up: Response: No adverse reaction bm8 01:30 Drug: HYDROcodone-acetaminophen PO 5 mg-325 mg 2 tabs PO once Route: PO; ay 04:42 Follow up: Response: No adverse reaction bm8 01:30 Drug: Promethazine PO 25 mg PO once Route: PO; ay 04:41 Follow up: Response: No adverse reaction bm8 01:30 Drug: Methocarbamol PO 1500 mg PO once Route: PO; ay 04:41 Follow up: Response: No adverse reaction bm8 05:45 Drug: MethylPrednisoLONE IVP 125 mg IVP once Route: IVP; Site: right antecubital; bm8 05:46 Follow up: Response: No adverse reaction bm8 Medication: 01:24 VIS not applicable for this client. cp4 Intake: 04:41 IV: 1000ml; Total: 1000ml. bm8 Outcome: 05:35 Discharge ordered by . sp4 05:45 Discharged to home ambulatory, bm8 05:45 Condition: stable 05:45 Discharge instructions given to patient, Instructed on discharge instructions, follow up and referral plans. no drinking with medication, no driving heavy equipment, medication usage, safety practices, Demonstrated understanding of instructions, follow-up care, medications, 05:47 Prescriptions given X 1, bm8 05:55 Patient left the ED. bm8 Signatures: Dispatcher [employer] EDMS Kathie Jorgensen, RN RN rosa3 Jayant Durbin MD MD sp4 Whitney Hansen Ginger 2 Hunter Jorge RN RN bm8 Irina Giron RN RN ay
--- NOTE | 2024-08-20 05:36 | EDPHYS ---
Physician Documentation [facility] Name: Catrina Pandya Age: 59 yrs Sex: Female : 1965 Arrival Date: 08/20/2024 Time: 00:32 Bed 5 Private MD: ED Physician Jayant Durbin HPI: 08/20 00:37 This 59 yrs old Female presents to ER via Unassigned with complaints of Flank sp4 Pain. 21:02 Patient is a very pleasant 59-year-old female presents with complaint of a left flank sp4 pain.. Historical: - Allergies: 00:50 No Known Allergies; lg3 - Home Meds: 00:50 Metformin Oral [Active]; [place] Oral [Active]; Jardiance oral [Active]; rosuvastatin lg3 oral [Active]; - PMHx: 00:50 Diabetes mellitus; Hypercholesterolemia; lg3 - PSHx: 00:50 Ligation of fallopian tube; lg3 - Immunization history:: Adult Immunizations up to date. - Infectious Disease History:: Denies. - Social history:: Smoking status: Patient denies any tobacco usage or history of. Patient uses alcohol, occasionally. Patient/guardian denies using street drugs. - Family history:: not pertinent. ROS: 21:02 Constitutional: Negative for fever, chills, and weight loss, positive for left flank sp4 pain 21:02 All other systems are negative, Exam: 21:02 Constitutional: This is a well developed, well nourished patient who is awake, alert, sp4 and in no acute distress. Head/Face: Normocephalic, atraumatic. Eyes: Pupils equal round and reactive to light, extra-ocular motions intact. Lids and lashes normal. Conjunctiva and sclera are not injected. Cornea within normal limits. Periorbital areas with no swelling, redness, or edema. ENT: Nares patent. No nasal discharge, no septal abnormalities noted. Tympanic membranes are normal and external auditory canals are clear. Oropharynx with no redness, swelling, or masses, exudates, or evidence of obstruction, uvula midline. Mucous membranes moist. Neck: Trachea midline, no thyromegaly or masses palpated, and no cervical lymphadenopathy. Supple, full range of motion without nuchal rigidity, or vertebral point tenderness. Chest/axilla: Normal chest wall appearance and motion. Nontender with no deformity. No lesions are appreciated. Positive for left lateral chest wall tenderness which is worsened with movement Cardiovascular: Regular rate and rhythm with a normal S1 and S2. No gallops, murmurs, or rubs. Normal PMI, no JVD. No pulse deficits. Respiratory: Lungs have equal breath sounds bilaterally, clear to auscultation and percussion. No rales, rhonchi or wheezes noted. No increased work of breathing, no retractions or nasal flaring. Abdomen/GI: Soft, with normal bowel sounds. No distension or tympany. No guarding or rebound. No evidence of tenderness throughout. Back: No spinal tenderness. No costovertebral tenderness. Skin: Warm, dry with normal turgor. Normal color with no rashes, no lesions, and no evidence of cellulitis. MS/ Extremity: Pulses equal, no cyanosis. Neurovascular intact. Full, normal range of motion. Neuro: Awake and alert, GCS 15, oriented to person, place, time, and situation. Cranial nerves II-XII grossly intact. Motor strength 5/5 in all extremities. Sensory grossly intact. Psych: Awake, alert, with orientation to person, place and time. Behavior, mood, and affect are within normal limits Vital Signs: 00:47 BP 155 / 92; Pulse 75; Resp 17 S; Temp 98.7(O); Pulse Ox 100% on R/A; Weight 84.82 kg lg3 (R); Height 5 ft. 7 in. (R); 03:21 BP 131 / 65; Pulse 65; Resp 18; Pulse Ox 98% ; cp4 05:13 BP 120 / 79; Pulse 64; Resp 16; Temp 98.7; Pulse Ox 96% ; Pain 0/10; bm8 05:45 BP 131 / 82; Pulse 61; Resp 17; Temp 98.5; Pulse Ox 98% ; Pain 0/10; bm8 00:47 Body Mass Index 29.29 (84.82 kg, 170.18 cm) lg3 05:13 Pain Scale: Adult bm8 05:45 Pain Scale: Adult bm8 [place] Coma Score: 05:13 Eye Response: spontaneous(4). Motor Response: obeys commands(6). Verbal Response: bm8 oriented(5). Total: 15. 05:45 Eye Response: spontaneous(4). Motor Response: obeys commands(6). Verbal Response: bm8 oriented(5). Total: 15. 21:02 Eye Response: spontaneous(4). Motor Response: obeys commands(6). Verbal Response: sp4 oriented(5). Total: 15. MDM: 00:39 Medical Screening Exam initiated sp4 05:15 ED course: EXAM: CT Chest, Abdomen and Pelvis With Intravenous Contrast CLINICAL sp4 HISTORY: The patient is 59 years old and is Female; Chest pain. TECHNIQUE: Axial computed tomography images of the chest, abdomen and pelvis with intravenous contrast. Sagittal and coronal reformatted images were created and reviewed. This CT exam was performed using one or more of the following dose reduction techniques: automated exposure control, adjustment of the mA and/or kV according to patient size, and/or use of iterative reconstruction technique. COMPARISON: No relevant prior studies available. FINDINGS: CHEST: Lungs: No groundglass opacities or consolidation to suggest pneumonia. No mass. Pleural space: Unremarkable. No significant effusion. No pneumothorax. Heart: Unremarkable. No cardiomegaly. No significant pericardial effusion. No significant coronary artery calcifications. ABDOMEN: Liver: Unremarkable. No mass. Gallbladder and bile ducts: Unremarkable. No calcified stones. No ductal dilation. Pancreas: No findings to suggest acute pancreatitis. No mass visualized. No ductal dilation. Spleen: Unremarkable. No splenomegaly. Adrenals: Unremarkable. No mass. Kidneys and ureters: Unremarkable. No hydronephrosis. No solid mass. Stomach and bowel: No bowel dilatation or obstruction. No bowel wall thickening. Proximal gastric wall thickening versus artifact of incomplete distention, with the latter favored. PELVIS: Appendix: The visualized appendix is normal. No pericecal inflammation to suggest acute appendicitis. Bladder: Unremarkable. No mass. Reproductive: Unremarkable as visualized. CHEST, ABDOMEN and PELVIS: Intraperitoneal space: Unremarkable. No significant fluid collection. No free air. Bones/joints: No acute vertebral fracture. L5-S1 degenerative disc disease. No dislocation. Soft tissues: No axillary adenopathy. Vasculature: Unremarkable. No aortic aneurysm. Lymph nodes: Enlarged periportal lymph nodes. Enlarged hilar lymph nodes, right greater than left. The largest right hilar lymph node is 2.3 cm in transverse dimension. Enlarged subcarinal lymph node. Otherwise multiple non-pathologically enlarged mediastinal lymph nodes. IMPRESSION: 1. Intrathoracic adenopathy as above. No acute cardiopulmonary process. 2. No acute obstructive or inflammatory process identified. Normal appendix. 3. Enlarged periportal lymph nodes. Electronically signed by: Janee Mac MD 08/20/2024 04:23 AM . 05:33 Differential diagnosis: nephrolithiasis, pyelonephritis, UTI, diverticulitis, sp4 pancreatitis. Data reviewed: vital signs, nurses notes, lab test result(s), radiologic studies, CT scan. Consideration of Admission/Observation Escalation of care including admission/observation considered. ED course: Stable for discharge home . 08/20 00:39 Order name: CBC with Diff; Complete Time: 04:23 sp4 08/20 00:39 Order name: CMP; Complete Time: 04:23 sp4 08/20 00:39 Order name: Lipase; Complete Time: 04:23 sp4 08/20 00:39 Order name: Urinalysis w/ reflexes; Complete Time: 01:12 sp4 08/20 01:18 Order name: C-Reactive Protein; Complete Time: 04:23 EDMS 08/20 01:18 Order name: T4 Free; Complete Time: 04:23 EDMS 08/20 01:18 Order name: Thyroid Stimulating Hormone; Complete Time: 04:23 EDMS 08/20 01:12 Order name: CT Chest, Abdomen, Pelvis - W/Contrast sp4 08/20 00:39 Order name: IV Saline Lock; Complete Time: 00:58 sp4 08/20 00:39 Order name: Labs collected and sent; Complete Time: 00:58 sp4 Administered Medications: 01:29 Drug: NS 0.9% IV 1000 ml IV at 1 bolus Per protocol; to be given as a bolus over 60 ay minutes Route: IV; Rate: 1 bolus; Site: right antecubital; 04:41 Follow up: Response: No adverse reaction; IV Status: Completed infusion; IV Intake: bm8 1000ml 01:30 Drug: Ketorolac IVP 30 mg IVP once Route: IVP; Site: right antecubital; ay 04:42 Follow up: Response: No adverse reaction bm8 01:30 Drug: HYDROcodone-acetaminophen PO 5 mg-325 mg 2 tabs PO once Route: PO; ay 04:42 Follow up: Response: No adverse reaction bm8 01:30 Drug: Promethazine PO 25 mg PO once Route: PO; ay 04:41 Follow up: Response: No adverse reaction bm8 01:30 Drug: Methocarbamol PO 1500 mg PO once Route: PO; ay 04:41 Follow up: Response: No adverse reaction bm8 05:45 Drug: MethylPrednisoLONE IVP 125 mg IVP once Route: IVP; Site: right antecubital; bm8 05:46 Follow up: Response: No adverse reaction bm8 Disposition Summary: 08/20/24 05:35 Discharge Ordered Notes: Location: Home sp4 Problem: new sp4 Symptoms: have improved sp4 Condition: Stable sp4 Diagnosis - Acute Left Flank Musculoskeletal pain sp4 Followup: sp4 - With: Private Physician - When: 7 - 10 days - Reason: Recheck today's complaints Discharge Instructions: - Discharge Summary Sheet sp4 - Musculoskeletal Pain sp4 Forms: - Patient Portal Instructions sp4 Prescriptions: - methocarbamol 750 mg Oral tablet - take 2 tablets ORAL route every 12 hours for 2 days PRN pain; 60 tablet; sp4 Refills: 0, Product Selection Permitted Signatures: Dispatcher [employer] Kathie Marie RN RN rosa3 Jayant Durbin MD MD sp4 Hunter Jorge RN RN bm8 Irina Giron RN RN ay Corrections: (The following items were deleted from the chart) 00:39 00:39 CBC+H.LAB.BRZ ordered. EDMS EDMS 00:39 00:39 COMPREHENSIVE METABOLIC PANEL+C.LAB.BRZ ordered. EDMS EDMS 00:39 00:39 LIPASE+C.LAB.BRZ ordered. EDMS EDMS 00:39 00:39 Urinalysis+U.LAB.BRZ ordered. EDMS EDMS 01:16 01:14 C-REACTIVE PROTEIN+C.LAB.BRZ ordered. EDMS EDMS 01:16 01:14 THYROID STIMULAT HORMONE+C.LAB.BRZ ordered. EDMS EDMS 01:16 01:14 T4 FREE+C.LAB.BRZ ordered. EDMS EDMS
[2024-08-20 06:35] VITALS: BP 131/82; TEMP 98.5; O2SAT 98
== END 2024-08-20 05:55 | disposition home or self-care (01) ==
LOC: ER 00:32
DX: R10.32 Left lower quadrant pain (principal); E11.9 Type 2 diabetes mellitus without complications; E78.00 Pure hypercholesterolemia, unspecified
CPT/HCPCS: 96361; 85025; 81001; 36415; 84443; 84439; 83690; 80053; 86140; 71260; 74177; 96375; 96374; 99284; Q9967; Q0169; J2919; J7030

== ENCOUNTER 2024-11-03 01:43 | Emergency (ER) | payer OTHER ==
--- OUTSIDE RECORDS SUMMARY | 2024-11-03 01:48 | XMS REPORT | Continuity of Care Document ---
Author Name Unknown Address [address] [facility] [place] [address] [facility] Address [address] 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 Role Phone KATELYNN MCNEAL Primary Care Physician Unava ilMiguelito Rothman Attending Clinician Unavailable Taylor Muhammad APRN Attending Clinician Yue Shashank Wray Attending Clinician Unavailable Libby Gates Attending Clinician Unavailable RADIOLOGY Attending Clinician Unavailable Noemy Attending Clinician UnavailDanielle Mcgraw Attending Clinician Unavailable Danielle Barragan Attending Clinician [phone] Ruel Che Attending Clinician Unavailable Ra Hughes MD Attending Clinician [phone] Atilio Hutchinson MD Attending Clinician [phone] ATILIO HUTCHINSON Attending Clinician UnavailWILLIAN Dawson Attending Clinician UnavailWillian Velazquez MD Attending Clinician [phone] [facility] Attending Clinician Unavailable Millie Trinh Attending Clinician Unavailable Millie Trinh Attending Clinician [phone] Wily Attending Clinician Unavail able Katelynn Mcneal Attending Clinician [phone] GC_SEFP_Mrozinski_G Attending Clinician Unavaila alexander Doctor Unassigned, [place] Attending Clinician U govindailSuyapa Shankar Attending Clinician UnavailADRIANA Celis Attending Clinician Unavailab fidel JACKPAdriana Attending Clinician [phone] Lizzy Prado Admitting Clinician Unavailable Noemy Admitting Clinician Unavailchar harris Physician, No Primary or Family Admitting Clinic isaiah WILLIAN Herrera Admitting Clinician Unavaila alexander GARCIA_BATKemar_Anh Admitting Clinician Unavail able GC_SEFP_Mrozinski_G Admitting Clinician Unavaila alexander Payers Payer Name Policy Type Policy Number Effective Date Expirati on Date Source [employer] NO PREMIUM HMO [id number] 2023 00:00:00 [employer] (MEDICARE REPLACEMENT HMO) [id number] 2022 00:00:00 [employer] (MEDICARE REPLACEMENT/ADVANTA GE - PPO) [id number] Problems Condition Name Condition Details Condition Category Status Onset Date Resolution Date Last Treatment Date Treating Clinician Comments Source Left upper quadrant pain Left Upper Quadrant Pain Problem Active 09-28 00:00: 00 [facility] Mass of right breast Mass of Right Breast Problem Active 09-28 00:00: 00 [facility] Moderate recurrent major depression Moderate Recurrent Major Depression Problem Active 09-16 00:00: 00 [facility] Gastroesop hageal reflux disease Gastroesop hageal Reflux Disease Problem Active 2025-0 1-23 00:00: 00 [facility] Neuropathy due to type 2 diabetes mellitus Neuropathy Due to Type 2 Diabetes Mellitus Problem Active 1-23 00:00: 00 [facility] Lumbar radiculopa thy Lumbar Radiculopa thy Problem Active 2023-08 0-31 00:00: 00 [facility] Insomnia Insomnia Problem Active 5-14 00:00: 00 [facility] Opioid dependence Opioid Dependence Problem Active 2022-08 0-03 00:00: 00 [facility] Bilateral ingrowing nail of toe of feet Bilateral Ingrowing Nail of Toe of Feet Problem Active 2022-08 0-03 00:00: 00 [facility] Stomatitis Stomatitis Problem Active 9-06 00:00: 00 [facility] Acute vaginitis Acute Vaginitis Problem Active 02-21 00:00: 00 [facility] Acute sinusitis Acute Sinusitis Problem Active - 00:00: 00 [facility] Seasonal allergic rhinitis Seasonal Allergic Rhinitis Problem Active 3 00:00: 00 [facility] Low back pain Low Back Pain Problem Active 3 00:00: 00 [facility] 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 2 diabetes mellitus Peripheral Neuropathy Due to Type 2 Diabetes Mellitus Problem Active 11-13 00:00: 00 [facility] Type 2 diabetes mellitus Type 2 Diabetes Mellitus Problem Active 3-15 00:00: 00 [facility] Depressive disorder Depressive Disorder Problem Active 3-15 00:00: 00 [facility] Malaise and fatigue Malaise and Fatigue Problem Active 3-15 00:00: 00 [facility] Hyperglyce monik due to type 2 diabetes mellitus Hyperglyce monik Due to Type 2 Diabetes Mellitus Problem Active 2021-08 0-21 00:00: 00 [facility] Candidiasi s of vagina Candidiasi s of Vagina Problem Active 2021-08 021 00:00: 00 [facility] Diabetic peripheral neuropathy Diabetic Peripheral Neuropathy Problem Active 2021-08 0-21 00:00: 00 [facility] Type 2 diabetes mellitus [...] of Alcoholism Problem [facility] 02-18 [facility] No known active problems No known active problems Disease [facility] [id number] Contusion of left great toe with damage to nail, initial encounter Problem [facility] [id number] Cellulitis of great toe, left Problem [facility] [id number] Tenosynovi tis of right foot Problem [facility] [id number] Pain of left great toe Problem [facility] [id number] Metatarsal geri, right foot Problem [facility] [id number] Pain in right foot Problem [facility] [id number] Ingrowing nail Problem [facility] Allergies, Adverse Reactions, Alerts Allergy Name Allergy Type Status Severity Reaction(s) Onset Date Inactive Date Treating Clinician Comments Source No Known Allergie s DA Active U 12-18 00:00: 00 [facility] No Known Allergie s DA Active U 09-19 00:00: 00 [facility] NO KNOWN ALLERGIE S Drug Class Active [facility] Family History Family Member Diagnosis Comments Start Date Stop Date Sourc e Mother [id number] 2021-10-02 00:00:00 2021-10-02 00:00:00 [facility] Mother Cancer, lung 2021-10-02 00:00:00 2021-10-02 00:00:00 [facility] Social History Social Habit Start Date Stop Date Quantity Comments Source Health-related Behavior 2021-10-02 00:00:00 [facility] Sex Assigned At [facility] History of Tobacco Use [facility] Alcohol intake [facility] Exposure to SARS-CoV-2 (event) 2022-06-03 00:00:00 2022-06-13 09:26:00 Not sure [facility] Tobacco use and exposure 2022-06-13 00:00:00 2022-06-13 00:00:00 Smokeless tobacco non-user [facility] Smoking Status Start Date Stop Date Source Never Smoker [facility] Unknown if ever smoked [facility] Medications Ordered Medication Name Filled Medication Name Start Date Stop Date Current Medication? Ordering Clinician Indication Dosage Frequency Signature (SIG) Comments Components Source Jardiance Jardiance 11-05 00:00: 00 No 1{table t} QD Jardiance Silvadene 1 % Silvadene 1 % 2022-08 00:00: 00 No 1{appli cation} QD Silvadene 1 % iodixanoL (VISIPAQUE 270-150 mL) injection 80 mL 05-08 16:47: 00 05-08 16:48 :00 No [id number] 80mL 80 mL, Intravenou s, ONCE, 1 dose, On Fri05/08/22 at 1200, Routine [facility] ibuprofen 800 mg tablet 04-11 07:42: 56 Yes ibuprofen 800 mg tablet TAKE 1 TABLET BY MOUTH EVERY DAY WITH FOOD NEEDED [facility] metFORMIN 500 mg tablet 04-11 07:42: 56 Yes metformin 500 mg tablet TAKE 2 TABLETS BY MOUTH EVERY DAY WITH THE MORNING AND EVENING MEAL [facility] ibuprofen 800 mg tablet TAKE 1 TABLET BY MOUTH EVERY DAY NEEDED ibuprofen 800 mg tablet TAKE 1 TABLET BY MOUTH EVERY DAY NEEDED 04-11 00:00: 00 No 1 Q1D ibuprofen 800 mg tablet TAKE 1 TABLET BY MOUTH EVERY DAY NEEDED [facility] ONETOUCH DELICA PLUS LANCET 33 gauge Misc 03-26 00:00: 00 Yes USE TO TEST BLOOD GLUCOSE TWICE DAILY [facility] diazepam 5 mg tablet 10-02 10:48: 00 No take 1 tablet by oral route every evening as needed for severe anxiety. [Pat Resp = 0 pct;] [facility] gabapentin 300 mg ORAL TABLET 10-02 00:00: 00 No Take 1 capsule by mouth (3) three times daily. [Pat Resp = 0 pct;] [facility] Latuda 80 mg tablet 10-02 00:00: 00 No take 1 tablet by oral route every evening with food (at least 350 calories) [Pat Resp = 0 pct;] [facility] omeprazole 20 mg ORAL CAPSULE 10-02 00:00: 00 No Take 1 capsules by mouth daily. [Pat Resp = 0 pct;] [facility] lamotrigine 200 mg tablet 10-02 00:00: 00 No take 1 tablet by oral route every evening. [Pat Resp = 0 pct;] [facility] trazodone 100 mg tablet 10-02 00:00: 00 No take 2 tablet by oral route daily [Pat Resp = 0 pct;] [facility] oxycodone-a cetaminophe n 7.5 mg-325 mg tablet 10-02 00:00: 00 10-02 00:00 :00 No take 1 tablet by oral by mouth twice daily as needed for pain. [Pat Resp = 0 pct;] [facility] Accu-Chek Guide test strips USE CHECK BLOOD SUGAR EVERY DAY Accu-Chek Guide test strips USE CHECK BLOOD SUGAR EVERY DAY No Accu-Chek Guide test strips USE CHECK BLOOD SUGAR EVERY DAY [facility] Accu-Chek Softclix Lancets Accu-Chek Softclix Lancets No Accu-Chek Softclix Lancets [facility] fluconazole 100 mg tablet fluconazole 100 mg tablet No fluconazol e 100 mg tablet [facility] fluconazole 150 mg tablet Take 1 tablet by oral route for 1 day. fluconazole 150 mg tablet Take 1 tablet by oral route for 1 day. No 1 fluconazol e 150 mg tablet Take 1 tablet by oral route for 1 day. [facility] hydrochloro thiazide 25 mg tablet hydrochloro thiazide 25 mg tablet No hydrochlor othiazide 25 mg tablet [facility] hydroxyzine pamoate 50 mg capsule TAKE 1 CAPSULE BY MOUTH THREE TIMES DAILY NEEDED FOR ANXIETY hydroxyzine pamoate 50 mg capsule TAKE 1 CAPSULE BY MOUTH THREE TIMES DAILY NEEDED FOR ANXIETY No hydroxyzin e pamoate 50 mg capsule TAKE 1 CAPSULE BY MOUTH THREE TIMES DAILY NEEDED FOR ANXIETY [facility] ibuprofen 800 mg tablet TAKE 1 TABLET BY MOUTH EVERY DAY WITH FOOD NEEDED ibuprofen 800 mg tablet TAKE 1 TABLET BY MOUTH EVERY DAY WITH FOOD NEEDED No ibuprofen 800 mg tablet TAKE 1 TABLET BY MOUTH EVERY DAY WITH FOOD NEEDED [facility] Jardiance 25 mg tablet Jardiance 25 mg tablet No Jardiance 25 mg tablet [facility] metformin 500 mg tablet TAKE 2 TABLETS BY MOUTH EVERY DAY WITH THE MORNING AND EVENING MEAL metformin 500 mg tablet TAKE 2 TABLETS BY MOUTH EVERY DAY WITH THE MORNING AND EVENING MEAL No metformin 500 mg tablet TAKE 2 TABLETS BY MOUTH EVERY DAY WITH THE MORNING AND EVENING MEAL [facility] omeprazole 40 mg capsule,del ayed release Take 1 capsule every day by oral route for 90 days. omeprazole 40 mg capsule,del ayed release Take 1 capsule every day by oral route for 90 days. No 1capsul e(s) Q1D omeprazole 40 mg capsule,de layed release Take 1 capsule every day by oral route for 90 days. [facility] rosuvastati n 20 mg tablet rosuvastati n 20 mg tablet No rosuvastat in 20 mg tablet [facility] True Metrix Glucose Meter USE DIRECTED True Metrix Glucose Meter USE DIRECTED No True Metrix Glucose Meter USE DIRECTED [facility] True Metrix Glucose Test Strip USE DIRECTED TO TEST BLOOD GLUCOSE LEVELS True Metrix Glucose Test Strip USE DIRECTED TO TEST BLOOD GLUCOSE LEVELS No True Metrix Glucose Test Strip USE DIRECTED TO TEST BLOOD GLUCOSE LEVELS [facility] Accu-Chek Softclix Lancets USE TO CHECK BLOOD SUGAR DIRECTED DAILY Accu-Chek Softclix Lancets USE TO CHECK BLOOD SUGAR DIRECTED DAILY No Accu-Chek Softclix Lancets USE TO CHECK BLOOD SUGAR DIRECTED DAILY [facility] gabapentin 300 mg capsule TAKE 1 CAPSULE BY MOUTH THREE TIMES DAILY gabapentin 300 mg capsule TAKE 1 CAPSULE BY MOUTH THREE TIMES DAILY No gabapentin 300 mg capsule TAKE 1 CAPSULE BY MOUTH THREE TIMES DAILY [facility] hydrocodone 10 mg-acetamin ophen [...] NEEDED FOR PAIN. MAX 2 PER DAY [facility] Jardiance 25 mg tablet Take 1 tablet every day by oral route for 90 days. Jardiance 25 mg tablet Take 1 tablet every day by oral route for 90 days. No 1 Q1D Jardiance 25 mg tablet Take 1 tablet every day by oral route for 90 days. [facility] metformin 500 mg tablet TAKE 2 TABLETS BY MOUTH EVERY DAY WITH THE MORNING AND EVENING MEAL metformin 500 mg tablet TAKE 2 TABLETS BY MOUTH EVERY DAY WITH THE MORNING AND EVENING MEAL No metformin 500 mg tablet TAKE 2 TABLETS BY MOUTH EVERY DAY WITH THE MORNING AND EVENING MEAL [facility] methocarbam ol 500 mg tablet TAKE 1 TABLET BY MOUTH TWICE DAILY NEEDED methocarbam ol 500 mg tablet TAKE 1 TABLET BY MOUTH TWICE DAILY NEEDED No methocarba mol 500 mg tablet TAKE 1 TABLET BY MOUTH TWICE DAILY NEEDED [facility] omeprazole 40 mg capsule,del ayed release TAKE 1 CAPSULE BY MOUTH EVERY DAY omeprazole 40 mg capsule,del ayed release TAKE 1 CAPSULE BY MOUTH EVERY DAY No omeprazole 40 mg capsule,de layed release TAKE 1 CAPSULE BY MOUTH EVERY DAY [facility] OneTouch Delica Plus Lancet 30 gauge DIRECTED TWICE DAILY OneTouch Delica Plus Lancet 30 gauge DIRECTED TWICE DAILY No OneTouch Delica Plus Lancet 30 gauge DIRECTED TWICE DAILY [facility] OneTouch Delica Plus Lancet 33 gauge USE TO CHECK BLOOD SUGAR TWICE DAILY OneTouch Delica Plus Lancet 33 gauge USE TO CHECK BLOOD SUGAR TWICE DAILY No OneTouch Delica Plus Lancet 33 gauge USE TO CHECK BLOOD SUGAR TWICE DAILY [facility] OneTouch Verio test strips CHECK BLOOD SUGAR TWICE DAILY OneTouch Verio test strips CHECK BLOOD SUGAR TWICE DAILY No OneTouch Verio test strips CHECK BLOOD SUGAR TWICE DAILY [facility] rosuvastati n 20 mg tablet TAKE 1 TABLET BY MOUTH EVERY DAY rosuvastati n 20 mg tablet TAKE 1 TABLET BY MOUTH EVERY DAY No rosuvastat in 20 mg tablet TAKE 1 TABLET BY MOUTH EVERY DAY [facility] Alcohol Pads Use as directed Alcohol Pads Use as directed No Alcohol Pads Use as directed [facility] trazodone 50 mg tablet TAKE 1 TABLET BY MOUTH EVERY DAY AT BEDTIME FOR INSOMNIA trazodone 50 mg tablet TAKE 1 TABLET BY MOUTH EVERY DAY AT BEDTIME FOR INSOMNIA No 1 Q1D trazodone 50 mg tablet TAKE 1 TABLET BY MOUTH EVERY DAY AT BEDTIME FOR INSOMNIA [facility] naloxone 4 mg/actuatio n [...] SYMPTOMS OF OPIOID EMERGENCY PERSIST, ALTERNATE NOSTRILS [facility] fluconazole 150 mg tablet TAKE 1 TABLET BY MOUTH EVERY DAY FOR 3 DAYS fluconazole 150 mg tablet TAKE 1 TABLET BY MOUTH EVERY DAY FOR 3 DAYS No fluconazol e 150 mg tablet TAKE 1 TABLET BY MOUTH EVERY DAY FOR 3 DAYS [facility] ondansetron 4 mg disintegrat [...] 6 HOURS NEEDED FOR NAUSEA OR VOMITING [facility] OneTouch Verio Flex Meter USE DIRECTED TO CHECK BLOOD GLUCOSE OneTouch Verio Flex Meter USE DIRECTED TO CHECK BLOOD GLUCOSE No OneTouch Verio Flex Meter USE DIRECTED TO CHECK BLOOD GLUCOSE [facility] methylpredn isolone 4 mg tablets in a dose pack FOLLOW PACKAGE DIRECTIONS methylpredn isolone 4 mg tablets in a dose pack FOLLOW PACKAGE DIRECTIONS No methylpred nisolone 4 mg tablets in a dose pack FOLLOW PACKAGE DIRECTIONS [facility] Vital Signs Vital Name Observation Time Observation Value Comments S domice BMI (Body Mass Index) 2024-09-28 00:00:00 26.8 kg/m2 [facility] Height 2024-09-28 00:00:00 67 [in_i] [facility] BP Diastolic 2024-09-28 00:00:00 80 mm[Hg] [facility] Body Weight 2024-09-28 00:00:00 171 [lb_av] [facility] BP Systolic 2024-09-28 00:00:00 134 mm[Hg] [facility] BMI (Body Mass Index) 2024-09-16 00:00:00 28.2 kg/m2 [facility] Height 2024-09-16 00:00:00 67 [in_i] [facility] Body Weight 2024-09-16 00:00:00 180 [lb_av] [facility] BP Diastolic 2024-06-24 00:00:00 79 mm[Hg] [facility] Height 2024-06-24 00:00:00 67 [in_i] [facility] Body Weight 2024-06-24 00:00:00 169 [lb_av] [facility] BMI (Body Mass Index) 2024-06-24 00:00:00 26.5 kg/m2 [facility] BP Systolic 2024-06-24 00:00:00 145 mm[Hg] [facility] Body Weight 2024-05-11 00:00:00 174 [lb_av] [facility] BMI (Body Mass Index) 2024-05-11 00:00:00 27.3 kg/m2 [facility] Height 2024-05-11 00:00:00 67 [in_i] [facility] BP Diastolic 2024-05-11 00:00:00 74 mm[Hg] [facility] BP Systolic 2024-05-11 00:00:00 148 mm[Hg] [facility] Height 2024-01-06 00:00:00 67 [in_i] [facility] BP Diastolic 2024-01-06 00:00:00 79 mm[Hg] [facility] Body Weight 2024-01-06 00:00:00 171 [lb_av] [facility] BP Systolic 2024-01-06 00:00:00 146 mm[Hg] [facility] BMI (Body Mass Index) 2024-01-06 00:00:00 26.8 kg/m2 [facility] Body Weight 2023-05-27 00:00:00 175 [lb_av] [facility] BP Diastolic 2023-05-27 00:00:00 80 mm[Hg] [facility] BP Systolic 2023-05-27 00:00:00 132 mm[Hg] [facility] Height 2023-05-27 00:00:00 67 [in_i] [facility] BMI (Body Mass Index) 2023-05-27 00:00:00 27.4 kg/m2 [facility] BP Systolic 2023-04-30 00:00:00 132 mm[Hg] [facility] Body Weight 2023-04-30 00:00:00 178 [lb_av] [facility] BP Diastolic 2023-04-30 00:00:00 78 mm[Hg] [facility] BMI (Body Mass Index) 2023-04-30 00:00:00 27.9 kg/m2 [facility] Height 2023-04-30 00:00:00 67 [in_i] [facility] BP Diastolic 2023-02-21 00:00:00 77 mm[Hg] [facility] Height 2023-02-21 00:00:00 67 [in_i] [facility] BMI (Body Mass Index) 2023-02-21 00:00:00 28.5 kg/m2 [facility] BP Systolic 2023-02-21 00:00:00 137 mm[Hg] [facility] Body Weight 2023-02-21 00:00:00 182 [lb_av] [facility] BP Diastolic 2022-11-13 00:00:00 79 mm[Hg] [facility] Height 2022-11-13 00:00:00 67 [in_i] [facility] BMI (Body Mass Index) 2022-11-13 00:00:00 29 kg/m2 [facility] BP Systolic 2022-11-13 00:00:00 131 mm[Hg] [facility] Body Weight 2022-11-13 00:00:00 185 [lb_av] [facility] BP Diastolic 2022-11-06 00:00:00 78 mm[Hg] [facility] Height 2022-11-06 00:00:00 67 [in_i] [facility] BMI (Body Mass Index) 2022-11-06 00:00:00 29.4 kg/m2 [facility] BP Systolic 2022-11-06 00:00:00 142 mm[Hg] [facility] Body Weight 2022-11-06 00:00:00 188 [lb_av] [facility] BP Diastolic 2022-08-21 00:00:00 83 mm[Hg] [facility] Height 2022-08-21 00:00:00 67 [in_i] [facility] BMI (Body Mass Index) 2022-08-21 00:00:00 29 kg/m2 [facility] BP Systolic 2022-08-21 00:00:00 141 mm[Hg] [facility] Body Weight 2022-08-21 00:00:00 185 [lb_av] [facility] BP Diastolic 2022-06-14 00:00:00 80 mm[Hg] [facility] Height 2022-06-14 00:00:00 67 [in_i] [facility] BMI (Body Mass Index) 2022-06-14 00:00:00 26.9 kg/m2 [facility] BP Systolic 2022-06-14 00:00:00 110 mm[Hg] [facility] Body Weight 2022-06-14 00:00:00 172 [lb_av] [facility] Systolic blood pressure 2022-06-13 14:39:00 133 mm[Hg] [facility] Diastolic blood pressure 2022-06-13 14:39:00 81 mm[Hg] [facility] Heart rate 2022-06-13 14:39:00 61 /min [facility] Body temperature 2022-06-13 14:39:00 36.78 Amber [facility] Body height 2022-06-13 14:39:00 170.2 cm [facility] Body weight 2022-06-13 14:39:00 78.2 kg [facility] BMI 2022-06-13 14:39:00 27.00 kg/m2 [facility] Body temperature 2022-04-11 12:43:00 37 Amber [facility] Respiratory rate 2022-04-11 12:43:00 16 /min [facility] Body height 2022-04-11 12:43:00 170.2 cm [facility] Body weight 2022-04-11 12:43:00 78.019 kg [facility] BMI 2022-04-11 12:43:00 26.94 kg/m2 [facility] Systolic blood pressure 2022-04-11 12:43:00 128 mm[Hg] [facility] Diastolic blood pressure 2022-04-11 12:43:00 57 mm[Hg] [place] [facility] Heart rate 2022-04-11 12:43:00 73 /min [facility] BP Diastolic 2022-02-18 00:00:00 74 mm[Hg] [facility] Height 2022-02-18 00:00:00 67 [in_i] [facility] BMI (Body Mass Index) 2022-02-18 00:00:00 28 kg/m2 [facility] BP Systolic 2022-02-18 00:00:00 134 mm[Hg] [facility] Body Weight 2022-02-18 00:00:00 2864 [oz_av] [facility] Procedures Procedure Date / Time Performed Performing Clinician Source MAMMO, diagnostic, bilateral 2024-09-20 00:00:00 [facility] US, breast, bilateral 2024-09-20 00:00:00 [facility] MAMMO, screening, digital, bilateral 2024-09-16 00:00:00 [facility] MRI, lumbar spine, w/o contrast 2024-06-24 00:00:00 [facility] MAMMO, screening, digital, bilateral, w/ CAD 2024-01-06 00:00:00 [facility] US, liver 2023-05-27 00:00:00 [facility] MAMMO, screening, digital, bilateral, w/ CAD 2023-02-21 00:00:00 [facility] MAMMO, 3D rendering, w/o image post-processing 2022-08-21 00:00:00 [facility] MAMMO, screening, digital, bilateral 2022-08-12 00:00:00 [facility] MAMMO, screening, bilateral 2022-08-12 00:00:00 [facility] Nominal Fee 2022-01-07 00:00:00 [facility] Urinalysis, Auto W/O Scope 2022-01-07 00:00:00 [facility] Established Patient Office Visit-Level Three 2022-01-07 00:00:00 [facility] Trichomonas and Tracy / Wet [place] (T&M) 2022-01-07 00:00:00 [facility] Urinalysis culture and sensitivity 2022-01-07 00:00:00 [facility] Chylmd Trach DNA Amp Probe 2022-01-07 00:00:00 [facility] N.Gonorrhea DNA Amp Prob 2022-01-07 00:00:00 [facility] MICROALBUMIN QUANTITATIVE 2022-01-07 00:00:00 [facility] Albumin Creatinine Ratio 2022-01-07 00:00:00 [facility] Hepatitis Panel - Acute 2022-01-07 00:00:00 [facility] Hemoglobin A1C 2022-01-07 00:00:00 [facility] Complete Blood Count (CBC) 2022-01-07 00:00:00 [facility] Syphilis Test, qualitative 2022-01-07 00:00:00 [facility] HIV-1 antigen(s), HIV-1 and HIV-2 antibodies, single result 2022-01-07 00:00:00 [facility] Comprehensive Metabolic Panel 2022-01-07 00:00:00 [facility] Nominal Fee 2021-10-02 00:00:00 [facility] New Patient Office Visit-Level Four 2021-10-02 00:00:00 [facility] Plan of Care Planned Activity [...] End Date/Time Encounter Type Admission Type Attending Clinicians Care Facility Care Department Encounter ID Source 2024-06-21 12:59:00 Outpatient Miguelito Spring [facility] [id number] [facility] 2022-05-23 12:35:12 Outpatient CHW CHW [id number] [facility] 2024-09-28 00:00:00 2024-09-28 00:00:00 Taylor Muhammad, MEETING/EVENT PLANNER: [address] [facility] , [address], [place] [address] , Ph. [facility]_AKIKOU_Beel er George [id number] [facility] 2024-09-23 08:00:00 2024-09-23 08:00:00 Outpatient Taylor Carson [facility] BRET [id number] [facility] 2024-09-16 00:00:00 2024-09-16 00:00:00 Taylor Muhammad MEETING/EVENT PLANNER: [address] [facility] , [address], [place] [address] , Ph. [facility] - VM_HOU_Beel er George [id number] [facility] 2024-08-15 22:58:00 2024-08-16 00:55:00 Emergency EM [facility]ash[facility] Larkin [facility] N[facility] [id number] [facility] 2024-07-06 00:00:00 2024-07-06 00:00:00 (TEL) CLS CLS [id number] [facility] 2024-06-24 00:00:00 2024-06-24 00:00:00 Piper Khalil MD: [address] [place] [address] , [address], [place] [address] , Ph. [facility] - [place] - VM_HOU_Beel er Manske [id number] [facility] 2024-06-21 00:00:00 2024-06-21 00:00:00 Office Visit- Est Pt.- Level 3 CLS CLS [id number] [facility] 2024-05-11 00:00:00 2024-05-11 00:00:00 Taylor Muhammad, MEETING/EVENT PLANNER: [address] [place] [address] , [address], [place] [address] , Ph. [facility] - [place] - VM_HOU_Beel er Manske [id number] [facility] 2024-05-07 12:57:00 2024-05-07 18:50:00 Emergency EM Libby Gates [facility] N[facility]A [id number] [facility] 2024-01-06 00:00:00 2024-01-06 00:00:00 Lizzy Prado MD: [address] [place] [address] , [address], [place] [address] , Ph. [facility] [place] - VM_HOU_Beel er Manske [id number] [facility] 2023-06-09 00:00:00 2023-06-09 00:00:00 Outpatient [facility] [id number] [facility] 2023-06-03 00:00:00 2023-06-03 00:00:00 Outpatient Michael MURRAY [facility] [id number] [facility] 2023-05-27 00:00:00 2023-05-27 00:00:00 Outpatient Balitbit_R_ HOU_MD VFP VFP [id number] [facility] 2023-05-27 00:00:00 2023-05-27 00:00:00 Outpatient VFP VFP [id number] [facility] 2023-05-27 00:00:00 2023-05-27 00:00:00 Lizzy Prado MD: [address] [place] [address] , [address], [place] [address] , Ph. VFP [place] - Pending Sale To [facility] - [place] - VM_HOU_Beel er Manske [id number] [facility] 2023-05-16 00:00:00 2023-05-16 00:00:00 Outpatient VFP VFP [id number] [facility] 2023-05-16 00:00:00 2023-05-16 00:00:00 Outpatient VFP VFP [id number] [facility] 2023-04-30 00:00:00 2023-04-30 00:00:00 Gilberto Kathleen MD: [address] [place] [address] , [address], [place] [address] , Ph. VFP [place] - [facility] [place] [facility] - [place] - VM_HOU_Beel er Manske [id number] [facility] 2023-04-24 11:34:17 2023-04-24 11:34:17 Outpatient SFA SFA [id number] Zachary Curry Jermaine 2023-04-12 00:00:00 2023-04-12 00:00:00 Outpatient Balitbit_R_ HOU_MD VFP VFP [id number] [facility] 2023-04-12 00:00:00 2023-04-12 00:00:00 Outpatient Balitbit_R_ HOU_MD VFP VFP [id number] [facility] 2023-04-12 00:00:00 2023-04-12 00:00:00 Outpatient Balitbit_R_ HOU_MD VFP VFP [id number] [facility] 2023-03-25 13:44:00 2023-03-25 13:44:00 Outpatient Danielle Barragan W CHW [id number] [facility] s 2023-03-25 13:44:00 2023-03-25 13:44:00 Outpatient Danielle Barragan CHW [id number] 9af [id number] [facility] 2023-03-12 00:00:00 2023-03-12 00:00:00 Outpatient Balitbit_R_ HOU_MD VFP VFP [id number] [facility] e 2023-02-21 00:00:00 2023-02-21 00:00:00 Outpatient Balitbit_R_ HOU_MD VFP VFP [id number] [facility] e 2023-02-21 00:00:00 2023-02-21 00:00:00 Outpatient Balitbit_R_ HOU_MD VFP VFP [id number] [facility] e 2023-02-21 00:00:00 2023-02-21 00:00:00 Outpatient Balitbit_R_ HOU_MD VFP VFP [id number] [facility] 2023-02-21 00:00:00 2023-02-21 00:00:00 Outpatient VFP VFP [id number] [facility] 2023-02-21 00:00:00 2023-02-21 00:00:00 Lizzy Prado MD: [address] , [address], [place] [address] , Ph. VFP [place] - [facility] - [place] - VM_VIBHA_Magali lombardo George [id number] [facility] 2023-02-20 00:00:00 2023-02-20 00:00:00 Outpatient Balitbit_R VFP VFP [id number] [facility] 2022-12-18 19:07:00 2022-12-18 19:55:00 Emergency EM Ruel Infante HCACL TERS [id number] [facility] 2022-11-18 00:00:00 2022-11-18 00:00:00 Outpatient VFP VFP [id number] [facility] 2022-11-18 00:00:00 2022-11-18 00:00:00 Outpatient VFP VFP [id number] [facility] 2022-11-18 00:00:00 2022-11-18 00:00:00 Outpatient VFP VFP [id number] [facility] 2022-11-13 00:00:00 2022-11-13 00:00:00 Rene Kat MD: [address] [place] [address] , [address], [place] [address] , Ph. VFP [place] - [facility] - [place] - VM_HOU_Beel er Manske [id number] [facility] 2022-11-06 00:00:00 2022-11-06 00:00:00 Outpatient Balitbit_R VFP VFP [id number] [facility] 2022-11-06 00:00:00 2022-11-06 00:00:00 Outpatient Balitbit_R VFP VFP [id number] [facility] 2022-11-06 00:00:00 2022-11-06 00:00:00 Gilberto Kathleen MD: [address] [place] [address] , [address], [place] [address] , Ph. VFP [place] - [facility] [place] - VM_HOU_Beel er Manske [id number] [facility] 2022-11-05 00:00:00 2022-11-05 00:00:00 Outpatient Balitbit_R VFP VFP [id number] [facility] 2022-09-19 17:20:00 2022-09-19 19:04:00 Emergency EM Shashank Larkin HCAMN NURA [id number] [facility] 2022-08-21 00:00:00 2022-08-21 00:00:00 Outpatient Balitbit_R VFP VFP [id number] [facility] 2022-08-21 00:00:00 2022-08-21 00:00:00 Outpatient Balitbit_R VFP VFP [id number] [facility] 2022-08-21 00:00:00 2022-08-21 00:00:00 Vandana Gates, MEETING/EVENT PLANNER: [address] [place] [address] , [address], [place] [address] , Ph. VFP [facility] - [place] - VM_HOU_Beel er George [id number] [facility] 2022-07-04 00:00:00 2022-07-04 00:00:00 Outpatient Balitbit_R VFP VFP [id number] [facility] 2022-06-14 00:00:00 2022-06-14 00:00:00 Outpatient Balitbit_R VFP VFP [id number] [facility] 2022-06-14 00:00:00 2022-06-14 00:00:00 Lizzy Prado MD: [address] [place] [address] , [address], [place] [address] , Ph. VFP [facility] - [place] - VM_HOU_Beel er Manske [id number] [facility] 2022-06-13 09:30:00 2022-06-13 10:00:00 [facility] 1.2.840.114 350.1.13.10 4.2.7.2.686 [id number] [facility] 2022-06-13 09:30:00 2022-06-13 09:30:00 Outpatient [facility] [id number] [facility] 2022-05-14 00:00:00 2022-05-14 00:00:00 Outpatient Balitbit_R VFP VFP [id number] Tyrone harris 2022-05-08 11:33:54 2022-05-08 23:59:00 Outpatient [facility] [id number] [facility] 2022-05-08 11:33:54 2022-05-08 23:59:00 Hospital Encounter [facility] 1.840.114 350.1.13.10 4.2.7.2.686 [id number] [facility] 2022-04-11 09:30:00 2022-04-11 09:45:00 Nutrition Teacher Visit [facility] 1.840.114 350.1.13.10 4.2.7.2.686 [id number] [facility] 2022-04-11 09:30:00 2022-04-11 09:30:00 Outpatient [facility] [id number] [facility] 2022-04-11 08:30:00 2022-04-11 09:00:00 [facility]..840.114 350.1.13.10 4.2.7.2.686 [id number] [facility] 2022-04-11 08:30:00 2022-04-11 08:30:00 Outpatient [facility] [id number] [facility] 2022-04-11 08:30:00 2022-04-11 08:30:00 Outpatient [facility] [id number] [facility] 2022-03-09 07:11:00 2022-03-09 07:11:00 Outpatient Millie Trinh [facility] [id number] [facility] 2022-03-09 07:11:00 2022-03-09 07:11:00 Outpatient Millie Trinh [facility] [id number]-85b [id number] [id number] [facility] 2022-02-24 11:37:00 2022-02-24 11:37:00 Outpatient GC_BATC_Fow ler-Gulde [facility] [id number] [facility] 2022-02-22 05:18:00 2022-02-22 05:18:00 Outpatient GC_BATC_Fow ler-Gulde [facility] [id number] [facility] 2022-02-22 00:00:00 2022-02-22 00:00:00 Outpatient Katelynn Mosley [facility] [id number] 2022-02-22 00:00:00 2022-02-22 00:00:00 Katelynn huynh MD: [address] [place] [address] , Ph. [facility] - GC_BATC_Gul f [facility] Office [id number] [facility] 2022-02-18 03:23:00 2022-02-18 03:23:00 Outpatient GC_BATC_Fow ler-Gulde [facility] [id number] [facility] 2022-02-18 00:00:00 2022-02-18 00:00:00 [facility] [address] [address] , Ph. [facility] - GC_BATC_Gul f [facility] Office [id number] [facility] 2022-02-18 00:00:00 2022-02-18 00:00:00 Outpatient Katelynn Mosley [facility] [id number] 2022-02-14 04:13:00 2022-02-14 04:13:00 Outpatient GC_BATC_Bertha Ordonez [facility] [id number] [facility] 2022-02-14 02:56:00 2022-02-14 02:56:00 Outpatient GC_SEFP_o roby_Sourav [facility] [id number] [facility] 2022-01-08 23:08:00 2022-01-08 23:08:00 Outpatient Millie Trinh CHSamia [id number] [facility] 2022-01-08 23:08:00 2022-01-08 23:08:00 Outpatient Millie Trinh [id number]-85b [id number] [facility] 2022-01-07 14:00:00 2022-01-07 14:00:00 Outpatient Millie Trinh CHSamia [id number] [facility] 2022-01-07 14:00:00 2022-01-07 14:00:00 Stephan holland Patient Office Visit-Millie Muniz [id number] [id number] [id number] [facility] 2022-01-07 09:07:00 2022-01-07 09:07:00 Outpatient Millie Trinh CHSamia [id number] [facility] 2021-11-13 14:36:00 2021-11-13 14:36:00 Outpatient Millie Trinh CHSamia [id number] [facility] 2021-11-05 12:30:00 2021-11-05 12:30:00 Outpatient Millie Trinh JANELL W [id number] [facility] 2021-10-30 15:57:00 2021-10-30 15:57:00 Outpatient Olivia Trinhdariel MACIEL W [id number] [facility] 2021-10-17 12:00:00 2021-10-17 12:00:00 Outpatient Olivia Trinhdariel MACIEL W [id number] [facility] 2021-10-08 08:11:00 2021-10-08 08:11:00 Outpatient Olivia Trinhdariel MACIEL W [id number] [facility] 2021-10-08 00:00:00 2021-10-08 00:00:00 Orders Only Doctor Unassigned, [place] [facility] 1.2.840.114 350.1.13.10 4.2.7.2.686 [id number] [facility] 2021-10-02 14:39:00 2021-10-02 14:39:00 Outpatient Suyapa Salmon Samia W [id number] [facility] 2021-10-02 14:39:00 2021-10-02 14:39:00 Outpatient Suyapa Salmon Samia [id number] [id number]-85b [id number] [id number] [facility] 2021-10-02 10:00:00 2021-10-02 10:00:00 Outpatient Ziggy Milliedariel MACIEL W [id number] [facility] 2021-10-02 10:00:00 2021-10-02 10:00:00 New Patient Office Visit-Millie Kennedy [id number]-85b [id number] [facility] 2021-09-04 12:08:00 2021-09-04 14:54:00 Emergency X ADRIANA TRIVEDI [facility] ERT [id number] [facility] 2021-09-04 12:08:00 2021-09-04 14:54:00 Emergency Adriana Trivedi [facility] 1.2.840.114 350.1.13.10 4.2.7.2.686 [id number] [facility] Results Test Description Test Time Test Comments Results Result Co mments Source HEPATIC FUNCTION PANEL [id number] 23:58:00* Test Item Value Reference Range Interpretation Comme [facility] TOTAL PROTEIN (test code = PROT) 7.2 [...] code = ALKP) 80 U/L 46-116 N [id number] 23:58:00* Test Item Value Reference Range Interpretation Comme [facility] LIPASE (test code = LIP) 26 IU/L 12-53 N TROP-I HIGH [id number] 23:58:00* Test Item Value Reference Range Interpretation Comme [facility] TROP-I HIGH SENSITIVITY (test code = TROPIHS) <3 ng/L 0-34 N CAUTION: Units o f the current TROPI-HS test methodology(ng/L) differ from the prior test methodology (ng/mL) by afactor of 1000. 99th Percentile: Females: 0 - 34 ng/L Males: 0 - 54 ng/LThese results were obtained using [employer] CI 1900 TnIHreagent. Results from different methodologies should not becompared to one another as quantitative results may vary bymethod. CBC W/AUTO [id number] 23:41:00* Test Item Value Reference Range Interpretation [...] 0.0-0.2 N UA RFLX MICR CULT IF [id number] 23:33:00* Test Item Value Reference Range Interpretation [...] Description: CLEAN CATCHUA RFLX MICR CULT IF [id number] 16:50:00* Test Item Value Reference Range Interpretation [...] for culture: Dysuria/FrequencySpecimen Description: CLEAN CATCHUR HCG [id number] 16:50:00* Test Item Value Reference Range Interpretation Comme nts UR HCG QUAL (test code = HCGQLU) NEGATIVE NEGATIVE Indication for culture: Dysuria/FrequencySpecimen Description: CLEAN CATCHBASIC METABOLIC [id number] 13:49:00* Test Item Value Reference Range Interpretation [...] calculation forGFR is based on the CKD-EPI (2021) calculation. This formulais race indifferent and is [...] 9.2 mg/dl 8.0-10.5 N HEPATIC FUNCTION PANEL [id number] 13:49:00* Test Item Value Reference Range Interpretation [...] code = ALKP) 85 Units/L 50.0-136.0 N [id number] 13:49:00* Test Item Value Reference Range Interpretation Comme nts LIPASE (test code = LIP) 27 Units/L 16-77 N CBC W/AUTO [id number] 13:34:00* Test Item Value Reference Range Interpretation [...] N - XR FOOT 3 + V [id number] 19:45:00 [facility]: MAX LUQUE DOB: 1965 Sex: F FAX: Lizzy Ray MD [phone] [place]: St: REG FAX: Ruel Infante MD Name: MAX LUQUE [place] FSED : 1965 Age/S: 57/F Unit #: [id number] [place]: [place] Phys: Ruel Infante MD Acct: [id number] Dis Date: Status: REG ER PHONE #: Exam Date: 12/18/20221921 FAX #: Reason: lateral midfoot pain, trauma EXAMS: CPT CODE: [id number] XR FOOT 3 + V RT [id number] EXAM: - XR FOOT 3 + V RT LOCATION: H57 HISTORY: 57 years-year old Female with lateral midfoot pain, trauma COMPARISON: None available time of interpretation. FINDINGS: Frontal, oblique, and lateral views of the right foot are provided. No acute fracture or malalignment. No soft tissue findings are apparent. IMPRESSION: No acute fracture. at 1945 Reported and signed by: Dinesh Ang M.D. CC: Lizzy Prado MD; Ruel Infante MD Technologist: Natasha Antoine, RT(R)(CT) Trnscrd Date/Time/By: 12/18/2022 (1944) : By: [email or web address] Orig Print D/T: S: 12/18/2022 (1948) PAGE 1 Signed ReportHemoglobin A1c measurement device [id number] 17:19:00* Test Item Value Reference Range Interpretation Comme [facility] Hemoglobin A1c/Hemoglobin.to anthony in Blood (test code = 4548-4) 6.4 % 5.7-6.4 A [facility]) panel - [id number] 17:18:00* Test Item Value Reference Range Interpretation Comme nts Interpretation UA test performed using: (test code = Interpretation UA test performed using:) Automated device/analyzer (97547,[employer] ExpeditionsW) Interpretation Color (test code = Interpretation Color) Yellow Interpretation Clarity (test code = Interpretation Clarity) Clear Interpretation Glucose (mg/dL) (test code = Interpretation Glucose (mg/dL)) (Greater than or equal to) >= 1000 Interpretation Bilirubin (test code = Interpretation Bilirubin) Negative Interpretation Ketone (mg/dL) (test code = Interpretation Ketone (mg/dL)) Negative Interpretation Specific Superior (test code = Interpretation Specific Superior) 1.010 Interpretation Occult Blood (test code = Interpretation Occult Blood) Negative Interpretation pH (test code = Interpretation pH) 6 Interpretation Protein (test code = Interpretation Protein) Negative Interpretation Urobilinogen (test code = Interpretation Urobilinogen) 0.2 Interpretation Nitrites (test code = Interpretation Nitrites) Negative Interpretation Leukocytes (test code = Interpretation Leukocytes) Negative [facility]OL[facility] [id number] 18:17:00* Test Item Value Reference Range Interpretation [...] ECRCL) 83 mL/min >30 HEPATIC FUNCTION PANEL [id number] 18:17:00* Test Item Value Reference Range Interpretation [...] code = ALKP) 103 Units/L 50.0-136.0 N [id number] 18:17:00* Test Item Value Reference Range Interpretation Comme nts LIPASE (test code = LIP) 82 Units/L 65.0-230.0 N B-TYPE NATRIURETIC [id number] 18:17:00* Test Item Value Reference Range Interpretation Comme nts B-TYPE NATRIURETIC PEPTIDE ( test code = BNP) 46.2 PG/ML 5-100 N TROP-I HIGH [id number] 18:17:00* Test Item Value Reference Range Interpretation Comme nts TROP-I HIGH SENSITIVITY (test code = TROPIHS) 5.4 pg/mL 0.0-51.4 N CAUTION: Units o f the current TROPI-HS test methodology(pg/mL) differ from the prior test methodology (ng/mL) by afactor of 1000. 99th Percentile: Females: 0.0-51.4 pg/mL Males: 0.0-76.2 pg/mLThese results were obtained using [employer] iPAYst TnIHreagent. Results from different methodologies should not becompared to one another as quantitative results may vary bymethod. - XR CHEST 1 [id number] 18:06:00 [facility] 1965 Sex: F FAX:Shashank Larkin MD [place]: St: REG Name: ENEMAX [facility] : 1965 Age/S: 57/F [address] [facility] Unit #: [id number] Loc: [address] Phys: [place] [id number] Acct: [id number] Dis Date: Status: REG ER PHONE #: [phone] Exam Date: 09/19/2022 1758 FAX #: [phone] Reason: SOB EXAMS: CPT CODE: [id number] XR CHEST 1 V 52982 Location: [facility] EXAM: - XR CHEST 1 V DATE: 09/19/2022 5:44 PM HISTORY: SOB COMPARISON: None FINDINGS: No airspace consolidation or pleural effusions. No pneumothorax. The cardiovascular silhouette is within normal limits. No bony lesions. IMPRESSION: No acute cardiopulmonary abnormality. at 1806 Reported and signed by: TYREE JEFFERSON MD CC: Shashank Larkin MD Technologist: SHELLY ORTEGA [facility] Date/Time/By: 09/19/2022 (1805) : By: Steven PAGE 1 Signed Report FAX: Shashank Larkin MD [place]: St: REG ----- Name: MAX LUQUE [facility] : 1965 Age/S: 57/F [address] [facility] Unit #: [id number] Loc: [address] Phys: [place] [id number] Acct: [id number] Dis Date: Status: REG ER PHONE #: [phone] Exam Date: 09/19/2022 1755 FAX #: [phone] Reason: SOBEXAMS: CPT CODE: [id number] XR CHEST 1 V 90765 (Continued) Orig Print D/T: S: 09/19/2022 (180) PAGE 2 Signed ReportPROTHROMBIN [id number] 18:04:00* Test Item Value Reference Range Interpretation Comme nts PROTHROMBIN TIME PATIENT (test code = PTP) 11.4 SECONDS 9.9-12.8 N INTERNATIONAL NORMAL RATIO (test code = INR) 1.0 0.89-1.14 N THE INR IS TO BE USED ONLY FOR MONITORING ORAL ANTICOAGULANTTHERAPY. THE FOLLOWING ARE SUGGESTED RANGES FROM THEAB[facility]USAN [facility]LE[facility] OF CHEST PHYSICIANS:INDICATION INR VALUEPROPHYLAXIS OF [...] ANTIPHOSPHOLIPID ANTIBODIES 2.5 - 3.5 THROMBOPLASTIN TIME [id number] 18:04:00* Test Item Value Reference Range Interpretation Comme nts THROMBOPLASTIN TIME PARTIAL (test code = PTT) 29.40 SECONDS 25.86-36.07 N [facility] Therapeutic Range - APTT of 55.8-85.4 secondscorrelates with plasma heparin concentration of 0.2-0.4 u/mL D-DIMER/[id number] 18:04:00* Test Item Value Reference Range Interpretation Comme nts D-DIMER/FSP (test code = DDIMER) <215 ng/mLFEU 0-500 N Thrombosis and/o r Pulmonary Embolism and the clinicalcut-off value for exclusion (500 ng/mL FEU) of theseconditions is validated by the vapor coater of the method. A negative D-Dimer result when combined with a clinicalassessment of low pretest probability has been shown to havea high negative predictive value of DVT or PE. D-Dimer values >500 ng/mL FEU are not diagnostic for DVT,PE, or DIC without other confirmatory tests and appropriateclinical evaluations. CBC W/AUTO [id number] 17:58:00* Test Item Value Reference Range Interpretation [...] 0.00-0.01 N Bacteria identified in Urine by [id number] 00:00:00* Test Item Value Reference Range Interpretation Comme nts culture, urine (test code = culture, urine) see below no growth [facility] MedicalHep[facility] 1995 panel - [id number] 00:00:00* Test Item Value Reference Range Interpretation Comme nts Hepatitis A virus Ab [Presen ce] in Serum by Immunoassay (test code = 54465-6) non-reactive non-reactive Hepatitis B virus surface Ab [Presence] in Serum by Immunoassay (test code = 55829-4) non-reactive non-reactive Hepatitis B virus surface Ag [Presence] in Serum or Plasma by Immunoassay (test code = 5196-1) non-reactive non-reactive Hepatitis B virus core Ab [Presence] in Serum or Plasma by Immunoassay (test code = 15246-4) non-reactive non-reactive Hepatitis C virus Ab [Presen ce] in Serum or Plasma by Immunoassay (test code = 00581-1) non-reactive non-reactive Hepatitis C virus Ab Signal/Cutoff in Serum or Plasma by Immunoassay (test code = 23940-5) 0.02 <1.00 [facility] Medicalthyroid panel, [id number] 00:00:00* Test Item Value Reference Range Interpretation Comme nts Triiodothyronine resin uptak e (T3RU) in Serum or Plasma (test code = 3050-2) 29 % 22-35 Thyroxine (T4) [Mass/volume] in Serum or Plasma (test code = 3026-2) 9.0 mcg/dL 5.1-11.9 Thyroxine (T4) free index in Serum or Plasma by calculation (test code = 87421-4) 2.6 1.4-3.8 Thyrotropin [Units/volume] i n Serum or Plasma (test code = 3016-3) 1.18 mIU/L [facility] MedicalLipid 1995 panel - Serum or [id number] 00:00:00* Test Item Value Reference Range Interpretation Comme nts Cholesterol [Mass/volume] in Serum or Plasma (test code = 2093-3) 144 mg/dL <200 Cholesterol in HDL [Mass/volume] in Serum or Plasma (test code = 2085-9) 52 mg/dL See_Comment [Automated [employer]] The system which generated this result transmitted reference range: > or = 50. The reference range was not used to interpret this result as normal/abnormal. Triglyceride [Mass/volume] in Serum or Plasma (test code = 2571-8) 174 mg/dL <150 H Cholesterol in LDL [Mass/volume] in Serum or Plasma by calculation (test code = 88707-6) 67 mg/dL (calc) Cholesterol.total/Cho lesterol in HDL [Mass Ratio] in Serum or Plasma (test code = 9830-1) 2.8 (calc) <5.0 Cholesterol non HDL [Mass/volume] in Serum or Plasma (test code = 10967-7) 92 mg/dL (calc) <130 [facility] - Serum or [id number] 00:00:00* Test Item Value Reference Range Interpretation [...] by Creatinine-based formula (CKD-EPI) (test code = 02458-8) 87 mL/min/1.73m2 See_Comment [Automate d message] The system which generated this result transmitted reference range: > or = 60. The reference range was not used to interpret this result as normal/abnormal. Glomerular filtration rate/1.73 sq M.predicted among blacks [Volume Rate/Area] in Serum, Plasma or Blood by Creatinine-based formula (CKD-EPI) (test code = 99613-4) 101 mL/min/1.73m2 See_Comment [Automated message] The system [...] in Serum or Plasma (test code = 2074-0) 104 mmol/L 98-110 Carbon dioxide, total [Moles/volume] in Serum or Plasma (test code = 2027-9) 27 mmol/L 20-32 Calcium [Mass/volume] in Serum or Plasma (test code = 38328-7) 9.8 mg/dL 8.6-10.4 Protein [Mass/volume] in Serum or Plasma (test code = 2885-2) 7.1 g/dL 6.1-8.1 Albumin [Mass/volume] in Serum or Plasma (test code = 1751-7) 4.5 g/dL 3.6-5.1 Globulin [Mass/volume] in Serum by calculation (test code = 33433-7) 2.6 g/dL (calc) 1.9-3.7 Albumin/Globulin [Mass Ratio] [...] U/L 6-29 H [facility] MedicalHemoglobin A1c/Hemoglobin.total in [id number] 00:00:00* Test Item Value Reference Range Interpretation Comme nts Hemoglobin A1c/Hemoglobin.total in Blood (test code = 4548-4) 6.2 % of total HGB <5.7 H [facility] MedicalUrate [Mass/volume] in Serum or [id number] 00:00:00* Test Item Value Reference Range Interpretation Comme nts Urate [Mass/volume] in Serum or Plasma (test code = 3084-1) 4.1 mg/dL 2.5-7.0 [facility] MedicalCBC W Auto Differential panel - [id number] 00:00:00* Test Item Value Reference Range Interpretation [...] count (test code = 751-8) 3431 cells/uL 3079-9605 Lymphocytes [#/volume] in Blood by Automated count [...] count (test code = 706-2) 0.5 % [facility] Notes Date/Time Note Provider Source 2024-08-15 23:43:00 [facility] ([facility]) EMERGENCY PROVIDER REPORT REPORT#:[id number] REPORT STATUS: Signed DATE:08/15/24 TIME: 2342 PATIENT: MAX LUQUE UNIT #: [id number] ROOM/BED: : 66 AGE: 59 SEX: F PCP PHYS: Lizzy Prado MD SERVICE AUTHOR: Shashank Larkin MD REP SRV REP SRV TM: 2343 * ALL edits or amendments must be made on the electronic/computer document * HPI-Chest Pain 40 and Over General Initial Greet Date/Time 08/15/242301 Presentation Chief Complaint Chest pain Sudden in Onset? No )( Migration/Movement None Free Text HPI Notes Free Text HPI Notes 69-year-old female presents to the ED with left-sided rib pain on and off for the last 12 hours. Patient states worse with palpation. No recent fall or trauma no cough no congestion no chest pain no shortness of breath no abdominal pain no diarrhea constipation Risk-Chest Pain 40 and Over Risk Stratification )( Coronary Artery Disease Risk factors reviewed )( Thoracic Aortic Dissection Risk factors reviewed )( Pulmonary Embolism Risk factors reviewed )( AMI-Aspirin Aspirin Last 24 Hrs None )( HEART for MACE )( HEART for MACE Response Value History Low index of suspicion 0 ECG Interpretation Normal ECG 0 Age Age 45 - 65 1 Risk Factors for CAD 1-2 CAD risk factors 1 Troponin < or = to NL troponin 0 Total 2 HEART Score for MACE 0-3 (low risk 0.9%-1.7%) Review of Systems ROS Statements All systems rev neg except as marked. Past Medical History - Adult Stated Complaint SOB, COUGH, LEFT SIDE ABD PAIN Allergies Coded Allergies: No Known Allergies (12/18/22) Home Medications Active Scripts ACETAMINOPHEN (TYLENOL) 650 MG PO Q4H PRN PRN PAIN ACETAMINOPHEN (TYLENOL) 650 MG PO Q4H PRN PRN PAIN #100 TABS Prov: 05/07/24 ONDANSETRON ODT (ZOFRAN ODT) 4 MG PO Q6H PRN PRN NAUSEA/VOMITING ONDANSETRON ODT (ZOFRAN ODT) 4 MG PO Q6H PRN PRN NAUSEA/VOMITING #15 TABS Prov: 05/07/24 Smoking status for patients 13 years old or older: Never Smoker Physical Exam Vital Signs Vital Signs First Documented: Result Date Time Pulse Ox 99 08/15 2301 B/P 159/82 08/15 2301 B/P Mean 107 08/15 2301 O2 Delivery Room air 08/15 2301 Temp 98.5 08/15 2301 Pulse 59 08/15 2301 Resp 19 08/15 2301 Last Documented: Result Date Time Pulse Ox 100 08/15 2330 B/P 149/76 08/15 2330 B/P Mean 107 08/15 2330 Pulse 59 08/15 2330 O2 Delivery Room air 08/15 2301 Temp 98.5 08/15 2301 Resp 19 08/15 2301 Review of Vital Signs Reviewed Focused PE General/Const General/Const Awake, Alert Eyes Eyes PERRL MS Neck Neck Supple, Full range of motion, No swelling, Non-tender, No masses, No JVD Resp/Chest Respiratory/Chest Breath sounds NL, Breath sounds = bilat, No respiratory distress, No rales, No rhonchi, No wheezing, No chest tenderness Cardiovascular Cardiovascular Heart rate NL, Regular rhythm, Heart sounds NL, No murmurs, Peripheral circulation NL, Pulses = bilaterally, No gross BP differential Text/Dict Notes Left-sided rib pain Abdomen/GI Abdomen/GI Soft, Non-tender, No guarding, No rebound MS Back Back Inspection NL, Non-tender, No CVA tenderness MS Lower Extrem Lower Ext/Pelvis/MS Inspection NL, No swelling, Non-tender, No erythema, No deformity, Neurologic intact, Vascular intact, No edema Skin Skin Color NL, Warm, Dry, Turgor NL Neurologic Neurologic Oriented X3, Speech NL, No motor deficits, No sensory deficits Psychiatric Psychiatric Affect NL, Mood NL, Thought content NL Interpretation Diagnostics Lab Results Interpretation Considerations Independ review imaging, Reviewed prior records Results Laboratory Tests 08/15/242327: [Embedded Image Not Available] Laboratory Tests: 08/15 Chemistry Sodium (136 - 145 mmol/L) 136 Potassium (3.5 - 5.1 mmol/L) 3.8 Chloride (98 - 107 mmol/L) 103 Carbon Dioxide (20 - 31 mmol/L) 28.0 Anion Gap (0 - 20) 8.6 BUN (9 - 23 mg/dL) 12 Creatinine (0.60 - 1.30 mg/dL) 0.62 Estimated Creat Clear (>30 mL/min) 96 Glomerular Filtr Rate (mL/min) 103 Glucose (74 - 106 mg/dL) 103 Calcium (8.7 - 10.4 mg/dL) 9.2 Total Bilirubin (0.30 - 1.20 mg/dL) 0.30 Direct Bilirubin (0.05 - 0.3 mg/dL) 0.1 AST (0 - 33 U/L) 18 ALT (10 - 49 U/L) 19 Total Alk Phosphatase (46 - 116 U/L) 80 Troponin I High Sens (0 - 34 ng/L) <3 Total Protein (5.7 - 8.2 g/dL) 7.2 Albumin (3.4 - 5.0 g/dL) 4.4 Lipase (12 - 53 IU/L) 26 Hematology WBC (4.5 - 11.0 K/mm3) 5.4 RBC (3.80 - 5.20 M/mm3) 4.42 Hgb (12.0 - 16.0 gm/dL) 13.5 Hct (36.0 - 48.0 %) 39.8 MCV (82.0 - 99.0 UM3) 90.0 MCH (25.5 - 32.5 UUG) 30.5 MCHC (29.0 - 35.5 gm/dL) 33.9 RDW (11.5 - 15.0 %) 12.6 Plt Count (150 - 400 K/mm3) 189 MPV (7.4 - 10.4 fl) 9.9 Neut % (Auto) (49.0 - 76.0 %) 49.4 Lymph % (Auto) (23.0 - 38.0 %) 37.1 Moody % (Auto) (1.0 - 10.0 %) 9.2 Eos % (Auto) (1.0 - 5.0 %) 3.5 Baso % (Auto) (0.0 - 1.0 %) 0.6 Neut # (Auto) (2.4 - 6.3 K/mm3) 2.7 Lymph # (Auto) (1.2 - 4.0 K/mm3) 2.0 Moody # (Auto) (0.0 - 0.6 K/mm3) 0.5 Eos # (Auto) (0.0 - 0.7 K/MM3) 0.2 Baso # (Auto) (0.0 - 0.2 K/mm3) 0.0 Immature Gran % (0.0 - 0.4 %) 0.2 Immature Gran # (0.00 - 0.07 x10 3/uL) 0.01 Urines Urine Color STRAW Urine Appearance CLEAR Urine pH (5.0 - 9.0) 6.0 Ur Specific Superior (1.000 - 1.030) 1.010 Urine Protein (NEGATIVE mg/dl) NEGATIVE Urine Glucose (UA) (NORMAL mg/dl) 1000 mg/dl H Urine Ketones (NEGATIVE mg/dl) NEGATIVE Urine Blood (NEGATIVE Ebenezer/micL) NEGATIVE Urine Nitrite (NEGATIVE) NEGATIVE Urine Bilirubin (NEGATIVE mg/dL) NEGATIVE Urine Urobilinogen (NORMAL mg/dl) NORMAL Ur Leukocyte Esterase (NEGATIVE Tripp/micL) NEGATIVE Urine RBC (0 - 3 RBC/HPF) 0-2 Urine WBC (NONE WBC/HPF) 0-3 Ur Epithelial Cells (0 - 3 EPI/HPF) 0-3 Urine Bacteria (NONE) FEW Recent Impressions: RADIOLOGY - XR CHEST 1 V 08/15 2347 Report Impression - Status: SIGNED Entered: 08/16/2024 0009 IMPRESSION: No acute cardiopulmonary findings. Impression By: [email or web address] - Harmony Chery M.D. CAT SCAN - CT ABD PELVIS W/O CONT 08/15 2347 Report Impression - Status: SIGNED Entered: 08/16/2024 0025 IMPRESSION: No significant abnormalities demonstrated. Impression By: [email or web address] - Sameer Flores M.D. Lab Statement Laboratory studies reviewed and considered in the medical decision-making. Imaging Statement Radiographic studies reviewed and considered in the medical decision-making. Lab Imaging Statement Laboratory radiographic studies reviewed and considered in the medical decision-making. Point of Care Testing Pulse Oximetry Pulse Ox % 98 On: Room air Interpretation Interpreted by me, Pulse oximetry normal ECG #1 Interpretation Text/Dict Note EKG revealed at this time sinus bradycardia rate of [address] anterior changes. No STEMI. Date is August 15, 2024 time is 11:10 PM. Re-Evaluation MDM Re-Evaluation/Progress #1 Re-Eval Status Improved Pain Re-Evaluation Denies pain Exam Post Tx - General Active, Alert, Appears non-toxic Exam Post Tx - Sys Review Abdomen soft ED Course Medication(s) Ordered Medication(s) Ordered: Central Nervous System Agents Sig/Calvin Start time Last Medication Dose Route Stop Time Status Admin Ketorolac 15 MG X1ED STA 08/15 2319 DC 08/15 Tromethamine IV 08/15 2320 233 Differential Diagnosis )( Differential Diagnosis Acute myocardial infarct, Aortic dissection, Asthma exacerbation, Bronchitis, Chest pain, acute, Cholecystitis, Congestive heart failure, Costochondritis, Dysrhythmia, Esophageal rupture, Esophagitis, Hypertroph cardiomyopathy, Shereen-Lovelace syndrome, Mitral stenosis, Musculoskeletal pain, Myocardial infarction, Peptic ulcer disease, Pericarditis Patient Discharge Departure Vital Signs/Condition Vital Signs First Documented: Result Date Time Pulse Ox 99 08/15 2301 B/P 159/82 08/15 2301 B/P Mean 107 08/15 2301 O2 Delivery Room air 08/15 2301 Temp 98.5 08/15 2301 Pulse 59 08/15 2301 Resp 19 08/15 2301 Last Documented: Result Date Time Pulse Ox 100 08/15 2330 B/P 149/76 08/15 2330 B/P Mean 107 08/15 2330 Pulse 59 08/15 2330 O2 Delivery Room air 08/15 2301 Temp 98.5 08/15 2301 Resp 19 08/15 2301 All vital signs available at the time of this entry have been reviewed. Condition Stable, Improved Clinical Impression Clinical Impression Primary Impression: Rib pain Secondary Impressions: Rib pain on left side Disposition Decision Discharge )( Discharged to Home Yes )( Time 0053 )( Date 08/16/24 Discharge/Care Plan Counseled Regarding Diagnosis, Lab results, Imaging studies, Need for follow-up, When to return to ED (Auto) Prescriptions Current Visit Scripts ACETAMINOPHEN (TYLENOL) 500 MG PO Q8H PRN PRN PAIN ACETAMINOPHEN (TYLENOL) 500 MG PO Q8H PRN PRN PAIN #20 TABS FOR PAIN Prescriptions Reviewed Risks, Benefits, Alternative treatment Patient Instructions ED Bruise, Rib Referrals Provider Referral: Martín Camp MD Address: [address] [place] [address] Provider Referral: Jason Campbell MD Address: [address] [facility] [address] [place] [address] Provider Referral: Yo Quarles Jr, MD Address: [address] [facility] [address] 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 I have explained the patient's condition, diagnoses and treatment plan based on the information available to me at this time. I have answered the patient's and/or caregiver's questions and addressed any concerns. The patient and/or caregivers have as good an understanding of the patient's diagnosis, condition and treatment plan as can be expected at this point. The vital signs have been stable. The patient's condition is stable and appropriate for discharge from the emergency department. The patient will pursue further outpatient evaluation with the primary care physician or other designated or consulting physician as outlined in the discharge instructions. The patient and/or caregivers are agreeable to this plan of care and follow-up instructions have been explained in detail. The patient and/or caregivers have received these instructions in written format and have expressed an understanding of the discharge instructions. The patient and/or caregivers are aware that any significant change in condition or worsening of symptoms should prompt an immediate return to this or the closest emergency department or a call to 911. Quality Measures BP F/U for HTN Referred for BP f/u < 4wk, F/u with PCP/other doc 12-Lead ECG for CP Performed documented at [address] [facility] #:[id number] END OF REPORT [facility] 2024-05-07 13:31:00 [facility] ([facility]) EMERGENCY PROVIDER REPORT REPORT#:[id number] REPORT STATUS: Signed DATE:05/07/24 TIME: 1330 PATIENT: MAX LUQUE UNIT #: [id number] ROOM/BED: : 66 AGE: 58 SEX: F PCP PHYS: Lizzy Prado MD SERVICE AUTHOR: Rebecca Donald MEETING/EVENT PLANNER REP SRV REP SRV TM: 1331 * ALL edits or amendments must be made on the electronic/computer document * Rebecca Donald 05/07/24 1331: HPI-Abd Pain F 40 and Over Free Text HPI Notes Free Text HPI Notes 58 year old female presnts with complaints of RUQ pain and nausea after drinking alcohol yesterday. denies v/d injury. General Confirmed Patient Yes Initial Greet Date/Time 05/07/24 1302 Presentation Chief Complaint Abdominal pain, Nausea Hx Obtained From Patient, EMS Sudden in Onset? No Onset Occurred Today Caused by No trauma by history Location Abdomen upper, RUQ Exacerbated by Nothing Relieved by Nothing Risk-Abd Pain F 40 and Over )( Abdominal Aortic Aneurysm Risk factors reviewed Review of Systems ROS Statements All systems rev neg except as marked. Basic Review of Systems Basic ROS EYES: No redness, ENT: No sore throat, HEM: No bleeding/bruising, SKIN : No rash, NEURO: No change MS, NEURO: No focal deficit, PSYCH: NL thought content Past Medical History - Adult Stated Complaint RIGHT UPPER ABDO PAIN Allergies Coded Allergies: No Known Allergies (12/18/22) Smoking status for patients 13 years old or older: Unknown,if ever smoked Physical Exam Vital Signs Vital Signs First Documented: Result Date Time Pulse Ox 99 05/07 1259 B/P 150/89 05/07 1259 B/P Mean 109 05/07 1259 Temp 36.8 05/07 1259 Pulse 83 05/07 1259 Resp 16 05/07 1259 Last Documented: Result Date Time Pulse Ox 95 05/07 1620 B/P 138/74 05/07 1620 B/P Mean 100 05/07 1620 Pulse 75 05/07 1620 Resp 19 05/07 1620 Temp 36.8 05/07 1259 Review of Vital Signs Reviewed Free Text PE Notes Free Text PE Notes General/Const: Awake, Alert, No acute distress, Well appearing, Well hydrated, MS Head: Atraumatic, Normocephalic Eyes Atraumatic: EOMI, No nystagmus, No periorbital swelling, No scleral icterus Ears/Nose/Throat: Atraumatic, Airway patent, Mucous membranes moist, Pharynx NL, No trismus MS Neck: Atraumatic, Supple, No meningismus, Full range of motion Respiratory/Chest: Atraumatic, Breath sounds NL, Breath sounds = bilat, No respiratory distress Cardiovascular: Heart rate NL, Regular rhythm, Cap refill not delayed, Peripheral circulation NL Abdomen/GI: Atraumatic, Soft, right upper quad tenderness, No distention Back: Atraumatic, Full range of motion, Non-tender Skin: Skin Atraumatic, Color NL, No rash, Warm, Dry, Intact, Turgor NL, No swelling Neurologic: Oriented X3, Speech NL, No motor deficits, Cerebellar NL, Memory NL, Gait NL Psychiatric: Affect NL, Mood NL, Cognitive function NL, Judgment/insight NL, Thought content NL Interpretation Diagnostics Lab Results Interpretation Considerations Independ review imaging Results Laboratory Tests 05/07/24 1328: [Embedded Image Not Available] Laboratory Tests: 05/07 05/07 1628 1328 Chemistry Sodium (134.0 - 147.0 mmol/l) 139 Potassium (3.6 - 5.2 mmol/L) 4.0 Chloride (98.0 - 107.0 mmol/l) 103 Carbon Dioxide (21.0 - 33.0 mmol/l) 23.9 Anion Gap (0 - 20) 16.1 BUN (7.0 - 18.0 mg/dl) 6 L Creatinine (0.60 - 1.30 mg/dL) 0.85 Estimated Creat Clear (>30 mL/min) 66 Glomerular Filtr Rate (mL/min) 80 Glucose (70.0 - 110.0 mg/dl) 110 Calcium (8.0 - 10.5 mg/dl) 9.2 Total Bilirubin (0.0 - 1.0 mg/dl) 0.3 Direct Bilirubin (0.0 - 0.3 mg/dl) 0.1 AST (15 - 37 Units/L) 15 ALT (12.0 - 78.0 Units/L) 22 Total Alk Phosphatase (50.0 - 136.0 Units/L) 85 Total Protein (6.4 - 8.2 gm/dL) 7.4 Albumin (3.2 - 4.7 gm/dl) 3.9 Lipase (16 - 77 Units/L) 27 Hematology WBC (4.5 - 11.0 K/mm3) 6.9 RBC (3.80 - 5.20 M/mm3) 4.53 Hgb (12.0 - 16.0 gm/dL) 13.9 Hct (36.0 - 48.0 %) 40.8 MCV (82.0 - 99.0 UM3) 90.1 MCH (25.5 - 32.5 UUG) 30.7 MCHC (29.0 - 35.5 gm/dL) 34.1 RDW (11.5 - 15.0 %) 12.9 Plt Count (150 - 400 K/mm3) 229 MPV (7.4 - 10.4 fl) 10.1 Neut % (Auto) (49.0 - 76.0 %) 68.4 Lymph % (Auto) (23.0 - 38.0 %) 19.5 L Moody % (Auto) (1.0 - 10.0 %) 9.1 Eos % (Auto) (1.0 - 5.0 %) 2.3 Baso % (Auto) (0.0 - 1.0 %) 0.6 Neut # (Auto) (2.4 - 6.3 K/mm3) 4.7 Lymph # (Auto) (1.2 - 4.0 K/mm3) 1.4 Moody # (Auto) (0.0 - 0.6 K/mm3) 0.6 Eos # (Auto) (0.0 - 0.7 K/MM3) 0.2 Baso # (Auto) (0.0 - 0.2 K/mm3) 0.0 Absolute Nucleated RBC (0.00 - 0.01 X10 3uL) 0.00 Immature Gran % (0.0 - 0.4 %) 0.1 Nucleated RBC % (0.0 - 0.1 %) 0.0 Immature Gran # (0.00 - 0.07 x10 3/uL) 0.01 Urines Urine Color STRAW Urine Appearance CLEAR Urine pH (5.0 - 9.0) 5.0 Ur Specific Superior (1.000 - 1.030) 1.010 Urine Protein (NEGATIVE mg/dl) NEGATIVE Urine Glucose (UA) (NORMAL mg/dl) NORMAL Urine Ketones (NEGATIVE mg/dl) NEGATIVE Urine Blood (NEGATIVE Ebenezer/micL) NEGATIVE Urine Nitrite (NEGATIVE) NEGATIVE Urine Bilirubin (NEGATIVE mg/dL) NEGATIVE Urine Urobilinogen (NORMAL mg/dl) NORMAL Ur Leukocyte Esterase (NEGATIVE Tripp/micL) NEGATIVE Urine RBC (0 - 3 RBC/HPF) 0-3 Urine WBC (NONE WBC/HPF) 1-3 Ur Epithelial Cells (0 - 3 EPI/HPF) 5-10 H Urine Bacteria (NONE) TRACE Urine Yeast (NEGATIVE) FEW Urine HCG, Qual (NEGATIVE) NEGATIVE Recent Impressions: CAT SCAN - CT ABD PELVIS W/CONT 05/07 1410 Report Impression - Status: SIGNED Entered: 05/07/2024 1436 IMPRESSION: No CT evidence of acute abdominal-pelvic pathology. Hepatic steatosis. Impression By: Cornell Pantoja D.O. Lab Imaging Statement Laboratory radiographic studies reviewed and considered in the medical decision-making. ECG #1 Interpretation Text/Dict Note UT 156 QRS 72 QT 376/449 Date 05/07/24 Time 1318 Interpreted by ED physician NL ECG Interpretation Normal rate, Normal sinus rhythm, No STEMI Rate 86 Re-Evaluation MDM Free Text MDM Notes Free Text MDM Notes 58 year old female presents with complaints of abdominal pain nausea after drinking alcohol. Labs and imaging reviewed with patients. no acute pathology, patients symptoms improved with iv pain medications. patient discharged home in stable condition to follow up with GI. )( Re-Evaluation/Progress #1 )( Re-Eval Status Improved Eval Following Treatment Pt. feels better, Tolerate liquids, no N/V Pain Re-Evaluation Pain improved Exam Post Tx - General Active, Alert, Appears well, Vital signs stable, Hydration normal Plan Post Re-Eval Plan discharge Abd Pain MDM Note F > 40 The patient is resting comfortably and feels better, is alert and in no distress. The repeat examination is unremarkable and benign; in particular, there is no discomfort at McBurney's point and there is no pulsatile mass. The history, exam, diagnostic testing, and current condition do not suggest acute appendicitis, bowel obstruction, acute cholecystitis, bowel perforation, major gastrointestinal bleeding, severe diverticulitis, abdominal aortic aneurysm, mesenteric ischemia, volvulus, sepsis, or other significant pathology to warrant further testing, continued ED treatment, admission, or surgical evaluation at this point. The vital signs have been stable. The patient does not have uncontrollable pain, intractable vomiting, or other significant symptoms. The patient's condition is stable and appropriate for discharge from the emergency department. The patient will pursue further outpatient evaluation with the primary care physician or other designated or consulting physician as indicated in the discharge instructions. ED Course Patient Course Improved Medication(s) Ordered Medication(s) Ordered: Central Nervous System Agents Sig/Calvin Start time Last Medication Dose Route Stop Time Status Admin Morphine Sulfate 4 MG X1ED STA 05/07 1325 DC 05/07 IV 05/07 1326 1331 Diagnostic Agents Sig/Calvin Start time Last Medication Dose Route Stop Time Status Admin Iopamidol 0 .STK-MED ONE 05/07 1358 DC 05/07 IV 1359 Electrolytic, Caloric, And Josefina Sig/Calvin Start time Last Medication Dose Route Stop Time Status Admin Sodium Chloride 1,000 ML X1ED STA 05/07 1324 DC 05/07 IV 05/07 1423 1331 Gastrointestinal Drugs Sig/Calvin Start time Last Medication Dose Route Stop Time Status Admin Ondansetron HCl 4 MG X1ED STA 05/07 1325 DC 05/07 IV 05/07 1326 1331 Rx Drug Regimen New Rx given Safety Concerns Patient is safe Differential Diagnosis )( Differential Diagnosis Acute abdominal pain, Bowel obstruction, Cholelithiasis, Pancreatitis, Sepsis?, Urinary tract infection Findings/Social Determinants Presentation Acute Severity Evaluation Non life-threatening Diagnosis Appears Non-critical Patient Discharge Departure Vital Signs/Condition Vital Signs First Documented: Result Date Time Pulse Ox 99 05/07 1259 B/P 150/89 05/07 1259 B/P Mean 109 05/07 1259 Temp 36.8 05/07 1259 Pulse 83 05/07 1259 Resp 16 05/07 1259 Last Documented: Result Date Time Pulse Ox 95 05/07 1620 B/P 138/74 05/07 1620 B/P Mean 100 05/07 1620 Pulse 75 05/07 1620 Resp 19 05/07 1620 Temp 36.8 05/07 1259 All vital signs available at the time of this entry have been reviewed. Clinical Impression Clinical Impression Primary Impression: Abdominal pain Secondary Impressions: Nausea Disposition Decision Discharge )( Discharged to Home Yes )( Time 1719 )( Date 05/07/24 Discharge/Care Plan Counseled Regarding Diagnosis, Lab results, Imaging studies, Prescriptions, Need for follow-up, When to return to ED (Auto) Prescriptions Current Visit Scripts ACETAMINOPHEN (TYLENOL) 650 MG PO Q4H PRN PRN PAIN ACETAMINOPHEN (TYLENOL) 650 MG PO Q4H PRN PRN PAIN #100 TABS ONDANSETRON ODT (ZOFRAN ODT) 4 MG PO Q6H PRN PRN NAUSEA/VOMITING ONDANSETRON ODT (ZOFRAN ODT) 4 MG PO Q6H PRN PRN NAUSEA/VOMITING #15 TABS Patient Instructions Abdominal Pain Additional Instructions Continue take your previously prescribed medications. Follow-up with gastroenterology in 2 to 3 days. Discharge Note I have spoken with the patient and/or caregivers. I have explained the patient's condition, diagnoses and treatment plan based on the information available to me at this time. I have answered the patient's and/or caregiver's questions and addressed any concerns. The patient and/or caregivers have as good an understanding of the patient's diagnosis, condition and treatment plan as can be expected at this point. The vital signs have been stable. The patient's condition is stable and appropriate for discharge from the emergency department. The patient will pursue further outpatient evaluation with the primary care physician or other designated or consulting physician as outlined in the discharge instructions. The patient and/or caregivers are agreeable to this plan of care and follow-up instructions have been explained in detail. The patient and/or caregivers have received these instructions in written format and have expressed an understanding of the discharge instructions. The patient and/or caregivers are aware that any significant change in condition or worsening of symptoms should prompt an immediate return to this or the closest emergency department or a call to 911. GatesRenettaLibby 05/08/24 0747: Patient Discharge Departure Discharge/Care Plan Referrals Provider Referral: Rohan Roca MD Notes: GASTROENTEROLOGY Address: [address] [place] [address] [id number] [place] [address] Supervising Physician Note MidLv Saw Pt Alone I have reviewed the PA/MEETING/EVENT PLANNER's note and plan of care. I was available for consultation as needed at all times during the patient's visit in the emergency department. I agree with the clinical impression, plan and disposition. at [phone] at [phone] [facility] #:[id number] END OF REPORT [facility] 2022-12-18 19:11:00 [facility] ([facility]) EMERGENCY PROVIDER REPORT REPORT#:[id number] REPORT STATUS: Signed DATE:12/18/22 TIME: 1910 PATIENT: MAX LUQUE UNIT #: [id number] ROOM/BED: AGE: 57 SEX: F PCP PHYS: Lizzy Prado MD SERVICE AUTHOR: Ruel Infante MD * ALL edits or amendments must be made on the electronic/computer document * HPI-General Illness Free Text HPI Notes Free Text HPI Notes 57F denies pMH presents for two weeks of right lateral midfoot pain, onset after injury by unknown object while swimming in water in [place], notes associated punctate abrasion to the right lower calf which is clean in appearance and scarred over. Patient requires tetanus update today. She exhibits no neurovascular compromise, no signs of compartment syndrome, and no skin or soft tissue infection, nor is there evidence of deep venous thrombosis clinically. Essentially her leg is without any swelling, skin changes, tenderness or other abnormalities whatsoever outside of the aforementioned scar. General Initial Greet Date/Time 12/18/221907 Presentation Chief Complaint __ (right foot pain ) Review of Systems ROS Statements All systems rev neg except as marked. (as per hpi ) Past Medical History - Adult Stated Complaint RIGHT FOOT PAIN Allergies Coded Allergies: No Known Allergies (12/18/22) Smoking status for patients 13 years old or older: Never Smoker Physical Exam Vital Signs Vital Signs First Documented: Result Date Time Pulse Ox 99 12/18 1909 B/P 155/82 12/18 1909 B/P Mean 106 12/18 1909 O2 Delivery Room air 12/18 1909 Temp 36.6 12/18 1909 Pulse 61 12/18 1909 Resp 16 12/18 1909 Last Documented: Result Date Time Pulse Ox 99 12/18 1909 B/P 155/82 12/18 1909 B/P Mean 106 12/18 1909 O2 Delivery Room air 12/18 1909 Temp 36.6 12/18 1909 Pulse 61 12/18 1909 Resp 16 12/18 1909 Review of Vital Signs Reviewed Basic Physical Exam Basic PE GEN: Well appearing/NAD, ENT: Membranes moist, NECK: Supple, RESP: No resp distress, SKIN: No rashes, warm/dry, NEURO: gross movement NL, PSYCH: NL thought content Interpretation Diagnostics Lab Results Interpretation Results Recent Impressions: RADIOLOGY - XR FOOT 3 + V RT 12/18 1921 Report Impression - Status: SIGNED Entered: 12/18/20221948 IMPRESSION: No acute fracture. Impression By: [email or web address] - Dinesh Ang M.D. Imaging Statement Radiographic studies reviewed and considered in the medical decision-making. Point of Care Testing Pulse Oximetry Interpretation Interpreted by me, Pulse oximetry normal Re-Evaluation MDM Free Text MDM Notes Free Text MDM Notes Right foot x-ray independently interpreted, no acute findings ED Course Medication(s) Ordered Medication(s) Ordered: Serums, Toxoids, And Vaccines Sig/Calvin Start time Last Medication Dose Route Stop Time Status Admin Diphtheria/Tetanus/ 0.5 ML X1ED STA 12/18 1910 DC 12/18 Acell Pertussis IM 12/18 Patient Discharge Departure Vital Signs/Condition Vital Signs First Documented: Result Date Time Pulse Ox 99 12/18 1909 B/P 155/82 12/18 1909 B/P Mean 106 12/18 1909 O2 Delivery Room air 12/18 1909 Temp 36.6 12/18 1909 Pulse 61 12/18 1909 Resp 16 12/18 1909 Last Documented: Result Date Time Pulse Ox 99 12/18 1909 B/P 155/82 12/18 1909 B/P Mean 106 12/18 1909 O2 Delivery Room air 12/18 1909 Temp 36.6 12/18 1909 Pulse 61 12/18 1909 Resp 16 12/18 1909 All vital signs available at the time of this entry have been reviewed. Clinical Impression Clinical Impression Primary Impression: Right foot sprain Secondary Impressions: Abrasion of right calf Disposition Decision Discharge )( Discharged to Home Yes )( Time 1950 )( Date 12/18/22 Discharge/Care Plan Patient Instructions ED Foot Sprain Additional Instructions Please followup with primary care clinic within 1 week. Return to ER immediately for worsening pain, swelling, redness or any other concerns. Departure Forms [facility] PCP LIST Discharge Note I have spoken with the patient and/or caregivers. I have explained the patient's condition, diagnoses and treatment plan based on the information available to me at this time. I have answered the patient's and/or caregiver's questions and addressed any concerns. The patient and/or caregivers have as good an understanding of the patient's diagnosis, condition and treatment plan as can be expected at this point. The vital signs have been stable. The patient's condition is stable and appropriate for discharge from the emergency department. The patient will pursue further outpatient evaluation with the primary care physician or other designated or consulting physician as outlined in the discharge instructions. The patient and/or caregivers are agreeable to this plan of care and follow-up instructions have been explained in detail. The patient and/or caregivers have received these instructions in written format and have expressed an understanding of the discharge instructions. The patient and/or caregivers are aware that any significant change in condition or worsening of symptoms should prompt an immediate return to this or the closest emergency department or a call to 911. at 1954 RPT #:[id number] END OF REPORT [facility] 2022-09-19 17:44:00 [facility] ([facility] EMERGENCY PROVIDER REPORT REPORT#:[id number] REPORT STATUS: Signed DATE:09/19/22 TIME: 1744 PATIENT: MAX LUQUE UNIT #: [id number] ROOM/BED: AGE: 57 SEX: F PCP PHYS: No Primary or Family Physician SERVICE AUTHOR: Shashank Larkin MD * ALL edits or amendments must be made on the electronic/computer document * HPI-Chest Pain 40 and Over General Initial Greet Date/Time 09/19/22 1722 Presentation Chief Complaint Chest pain, Chest aching Hx Obtained From Patient Sudden in Onset? No )( Migration/Movement None Free Text HPI Notes Free Text HPI Notes 57-year-old female presents to the ED with complaints of chest pain for the last 2 days. Patient states is achy in nature moderate intensity with no relieving or exacerbating factors no associated cough congestion fever shortness of breath. No family history of CAD Risk-Chest Pain 40 and Over Risk Stratification )( Coronary Artery Disease Risk factors reviewed )( Thoracic Aortic Dissection Risk factors reviewed )( Pulmonary Embolism Risk factors reviewed )( AMI-Aspirin Aspirin Last 24 Hrs 325 mg, On arrival )( HEART for MACE )( HEART for MACE Response Value History Low index of suspicion 0 ECG Interpretation Nonspec repol disturb 1 Age Age 45 - 65 1 Risk Factors for CAD 1-2 CAD risk factors 1 Troponin < or = to NL troponin 0 Total 3 HEART Score for MACE 0-3 (low risk 0.9%-1.7%) HEART Score Reference Resource material only. Click 'Cancel' button and information will not be inserted into or become part of the medical record Risk factors considered for determining a patient's HEART Score include: hypercholesterolemia (hyperlipidemia), hypertension, diabetes mellitus, cigarette smoking, positive family history and obesity. Major Adverse Cardiac Events (MACE) include: acute myocardial infarction, ischaemic stroke, coronary arterial occlusion and . References: Skip OSORIO, Marco A GRIFFITH, et al. Chest pain in the emergency room: value of the HEART score. Replaced By [facility] Heart J. 2008 Federico:16(6):191-6. PubMed PMID: 55584624; PubMed Central PMCID: [id number]. Marco A GRIFFITH, Skip OSORIO, et al. A prospective validation of the HEART score for chest pain patients at the emergency department. Int J Cardiol. 2013 May 3:168(3):2153 -8. Doi: 10.1016/j.ijcard.2013.01.255. Epub 2012Oct 29. PubMed PMID: 55341954. Review of Systems ROS Statements All systems rev neg except as marked. Past Medical History - Adult Stated Complaint CHEST PAIN Allergies Coded Allergies: No Known Allergies (09/19/22) Pt reports no significant: Past medical history, Past surgical history Smoking status for patients 13 years old or older: Never Smoker Physical Exam Vital Signs Vital Signs First Documented: Result Date Time Pulse Ox 98 09/19 1721 B/P 166/84 09/19 172 B/P Mean 111 09/19 1721 O2 Delivery Room air 09/19 1720 Temp 36.3 09/19 172 Pulse 68 09/19 1721 Resp 18 09/19 172 Last Documented: Result Date Time Pulse Ox 98 09/19 1721 B/P 166/84 01/26 1721 B/P Mean 111 09/19 1720 O2 Delivery Room air 09/19 1720 Temp 36.3 09/19 1720 Pulse 68 09/19 172 Resp 18 09/19 1720 Review of Vital Signs Reviewed Focused PE General/Const General/Const Awake, Alert Eyes Eyes PERRL MS Neck Neck Supple, Full range of motion, No swelling, Non-tender, No masses, No JVD Resp/Chest Respiratory/Chest Breath sounds NL, Breath sounds = bilat, No respiratory distress, No rales, No rhonchi, No wheezing, No chest tenderness Cardiovascular Cardiovascular Heart rate NL, Regular rhythm, Heart sounds NL, No murmurs, Peripheral circulation NL, Pulses = bilaterally, No gross BP differential Abdomen/GI Abdomen/GI Soft, Non-tender, No guarding, No rebound MS Back Back Inspection NL, Non-tender, No CVA tenderness MS Lower Extrem Lower Ext/Pelvis/MS Inspection NL, No swelling, Non-tender, No erythema, No deformity, Neurologic intact, Vascular intact, No edema Skin Skin Color NL, Warm, Dry, Turgor NL Neurologic Neurologic Oriented X3, Speech NL, No motor deficits, No sensory deficits Psychiatric Psychiatric Affect NL, Mood NL, Thought content NL Interpretation Diagnostics Lab Results Interpretation Considerations Independ review imaging, Reviewed prior records Results Laboratory Tests 09/19/221730: [Embedded Image Not Available] Laboratory Tests: 09/19 1730 Chemistry Sodium (134.0 - 147.0 mmol/l) 137 Potassium (3.6 - 5.2 mmol/L) 4.1 Chloride (98.0 - 107.0 mmol/l) 100 Carbon Dioxide (21.0 - 33.0 mmol/l) 27.3 Anion Gap (0 - 20) 13.8 BUN (7.0 - 18.0 mg/dl) 12 Creatinine (0.60 - 1.30 mg/dL) 0.74 Estimated Creat Clear (>30 mL/min) 83 Glomerular Filtr Rate (mL/min) 95 Glucose (70.0 - 110.0 mg/dl) 113 H Calcium (8.0 - 10.5 mg/dl) 9.0 Total Bilirubin (0.0 - 1.0 mg/dl) 0.2 Direct Bilirubin (0.0 - 0.3 mg/dl) 0.1 AST (15 - 37 Units/L) 52 H ALT (12.0 - 78.0 Units/L) 90 H Total Alk Phosphatase (50.0 - 136.0 Units/L) 103 Troponin I High Sens (0.0 - 51.4 pg/mL) 5.4 B-Natriuretic Peptide (5 - 100 PG/ML) 46.2 Total Protein (6.0 - 8.1 GM/DL) 7.1 Albumin (3.2 - 4.7 gm/dL) 3.9 Lipase (65.0 - 230.0 Units/L) 82 Coagulation INR (0.89 - 1.14) 1.0 PTT (Mark) (25.86 - 36.07 SECONDS) 29.40 PT Patient/Control Mix (9.9 - 12.8 SECONDS) 11.4 D-Dimer (0 - 500 ng/mLFEU) <215 Hematology WBC (4.5 - 11.0 K/mm3) 5.2 RBC (3.80 - 5.20 M/mm3) 4.39 Hgb (12.0 - 16.0 gm/dL) 13.0 Hct (36.0 - 48.0 %) 38.8 MCV (82.0 - 99.0 UM3) 88.4 MCH (25.5 - 32.5 UUG) 29.6 MCHC (29.0 - 35.5 gm/dL) 33.5 RDW (11.5 - 15.0 %) 13.0 Plt Count (150 - 400 K/mm3) 202 MPV (7.4 - 10.4 fl) 11.0 H Neut % (Auto) (49.0 - 76.0 %) 57.2 Lymph % (Auto) (23.0 - 38.0 %) 33.7 Moody % (Auto) (1.0 - 10.0 %) 6.8 Eos % (Auto) (1.0 - 5.0 %) 1.9 Baso % (Auto) (0.0 - 1.0 %) 0.4 Neut # (Auto) (2.4 - 6.3 K/mm3) 3.0 Lymph # (Auto) (1.2 - 4.0 K/mm3) 1.7 Moody # (Auto) (0.0 - 0.6 K/mm3) 0.4 Eos # (Auto) (0.0 - 0.7 K/MM3) 0.1 Baso # (Auto) (0.0 - 0.2 K/mm3) 0.0 Absolute Nucleated RBC (0.00 - 0.01 X10 3uL) 0.00 Immature Gran % (0.0 - 0.4 %) 0.0 Nucleated RBC % (0.0 - 0.1 %) 0.0 Immature Gran # (0.00 - 0.07 x10 3/uL) 0.00 Recent Impressions: RADIOLOGY - XR CHEST 1 V 09/19 1756 Report Impression - Status: SIGNED Entered: 09/19/20221808 IMPRESSION: No acute cardiopulmonary abnormality. Impression By: Steven JEFFERSON MD Lab Statement Laboratory studies reviewed and considered in the medical decision-making. Imaging Statement Radiographic studies reviewed and considered in the medical decision-making. Lab Imaging Statement Laboratory radiographic studies reviewed and considered in the medical decision-making. Point of Care Testing Pulse Oximetry Pulse Ox % 98 On: Room air Interpretation Interpreted by me, Pulse oximetry normal ECG #1 Interpretation Text/Dict Note EKG reviewed by me at this time normal sinus rhythm rate of 61 possible left atrial enlargement normal axis nonspecific ST anterior changes. No STEMI. Date is September 19, 2022 time is 1726 PM. Re-Evaluation MDM Free Text MDM Notes Free Text MDM Notes Low suspicion for ACS low suspicion for dissection or aneurysm. D-dimer within normal limits. Follow-up with cardiology recommended in the next 2 to 3 days for further evaluation and care. Strict return instruction also given. Re-Evaluation/Progress #1 Re-Eval Status Improved Exam Post Tx - General Active, Alert, Appears non-toxic Exam Post Tx - Sys Review Lungs clear Chest Pain MDM Note The patient is resting comfortably and feels better, is alert and in no distress. The repeat examination is unremarkable and benign. The electrocardiogram shows no signs of acute ischemia and the history, exam, diagnostic testing and current condition do not suggest that this patient is having an acute myocardial infarction, significant arrhythmia, unstable angina, esophageal perforation, pulmonary embolism, aortic dissection, pneumothorax, severe pneumonia, sepsis or other significant pathology that would warrant further testing, continued ED treatment, admission, or cardiology or other specialist consultation at this point. The vital signs have been stable. The patient's condition is stable and appropriate for discharge. The patient will pursue further outpatient evaluation with the primary care physician, other designated physician or remedial project manager. The patient and/or caregivers have expressed a clear and thorough understanding and agree to follow up as instructed. Patient Discharge Departure Vital Signs/Condition Vital Signs First Documented: Result Date Time Pulse Ox 98 09/19 172 B/P 166/84 09/19 1721 B/P Mean 111 09/19 1721 O2 Delivery Room air 09/19 172 Temp 36.3 09/19 172 Pulse 68 09/19 1721 Resp 18 09/19 172 Last Documented: Result Date Time Pulse Ox 98 09/19 1721 B/P 166/84 09/19 172 B/P Mean 111 09/19 1721 O2 Delivery Room air 09/19 172 Temp 36.3 09/19 172 Pulse 68 09/19 1721 Resp 18 09/19 1720 All vital signs available at the time of this entry have been reviewed. Condition Stable, Improved Clinical Impression Clinical Impression Primary Impression: Chest pain Secondary Impressions: HTN (hypertension) Disposition Decision Discharge )( Discharged to Home Yes )( Time 1854 )( Date 09/19/22 Discharge/Care Plan Counseled Regarding Diagnosis, Lab results, Imaging studies, Need for admission Prescriptions Reviewed Risks, Benefits, Alternative treatment Patient Instructions ED Chest Pain, Noncardiac (Child), ED Heart Disease Education Referrals Provider Referral: Josephine Kebede MD Address: [address] [facility] [address] [place] [address] Provider Referral: Bruno Winkler MD Address: [address] [place] [address] [address] [place] [address] Departure Forms [facility] PCP LIST WORK/SCHOOL 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 2 Discharge Note I have spoken with the patient and/or caregivers. I have explained the patient's condition, diagnoses and treatment plan based on the information available to me at this time. I have answered the patient's and/or caregiver's questions and addressed any concerns. The patient and/or caregivers have as good an understanding of the patient's diagnosis, condition and treatment plan as can be expected at this point. The vital signs have been stable. The patient's condition is stable and appropriate for discharge from the emergency department. The patient will pursue further outpatient evaluation with the primary care physician or other designated or consulting physician as outlined in the discharge instructions. The patient and/or caregivers are agreeable to this plan of care and follow-up instructions have been explained in detail. The patient and/or caregivers have received these instructions in written format and have expressed an understanding of the discharge instructions. The patient and/or caregivers are aware that any significant change in condition or worsening of symptoms should prompt an immediate return to this or the closest emergency department or a call to 911. Quality Measures BP F/U for HTN Referred for BP f/u < 4wk, F/u with PCP/other doc 12-Lead ECG for CP Performed documented at 2025 RPT #:[id number] END OF REPORT [facility]
[2024-11-03] MEDS ORDERED: DIAZEPAM 10 MG/2 ML INJ SYRINGE ONE (02:22)
[2024-11-03] MEDS ORDERED: PROMETHAZINE INJ 25 MG/ML AMP ONE (02:23)
[2024-11-03] MEDS ORDERED: METOCLOPRAMIDE 10 MG/2mL INJ ONE (02:23)
[2024-11-03] MEDS ORDERED: KETOROLAC 30 MG/ML INJ ONE (02:23)
[2024-11-03] MEDS ORDERED: NA CHLORIDE 0.9% 1,000 ML ONE (02:24)
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
[2024-11-03 04:01] LABS: Absolute Eosinophils 0.1 K/uL (0-0.5); Absolute Lymphocytes (CBC) 1.4 K/uL (0.7-4.9); Absolute Monocytes 0.6 K/uL (0.1-1.3); Absolute Neutrophil 1.2 K/uL (1.8-8.0); Basophils % 0.7 % (0-1.3); Eosinophils % 3.5 % (0-4.4); Hematocrit 32.8 % (36.0-45.0); Hemoglobin 11.2 g/dL (12.0-15.0); Lymphocytes % 42.8 % (15.3-44.8); MCH 30.6 pg (27.0-35.0); MCV 90.1 fL (80-100); MPV 7.8 fL (7.6-11.3); Monocytes % 16.7 % (3.3-12.3); Neutrophils % 36.3 % (41.7-73.7); Platelets 177 thou/uL (152-406); RBC Red Blood Cell Count 3.64 M/uL (3.86-4.86); Red Cell Distribution Width 13.2 % (12.1-15.2)
[2024-11-03 04:41] LABS: Albumin 3.1 g/dL (3.4-5.0); Albumin/Globulin Ratio 0.9 (1.1-1.8); Anion Gap 9.4 mEq/L (5.0-15.0); Bilirubin Total 0.4 mg/dL (0.2-1.0); Globulin 3.3 g/dL (2.3-3.5); Potassium 3.4 mEq/L (3.5-5.1); Protein, Total 6.4 g/dL (6.4-8.2)
[2024-11-03 05:15] LABS: Band Neutrophils 9 % (0-1); Blood Morphology Comment NOT SEEN (NOT SEEN); Differential Total Cells Count 100; Eosinophils 6 % (0-3); Lymphocytes 52 % (15-42); Monocytes 3 % (0-10); Platelet Estimate ADEQ; Reactive Lymphocytes 10 %; Segmented Neutrophils 20 % (40-80)
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
[2024-11-03 05:59] VITALS: TEMP 98.4; O2SAT 96
[2024-11-03 06:00] VITALS: BP 100/67
== END 2024-11-03 05:46 | disposition home or self-care (01) ==
LOC: ER 01:43
DX: S06.0X9A Concussion with loss of consciousness of unspecified duration, initial encounter (principal); S13.9XXA Sprain of joints and ligaments of unspecified parts of neck, initial encounter; M54.6 Pain in thoracic spine; V49.49XA Driver injured in collision with other motor vehicles in traffic accident, initial encounter
CPT/HCPCS: 85025; 36415; 80053; 70450; 71250; 72125; 74176; J2550; J2765; J3360; J7030; 96361; 96374; 96375; 99284

== ENCOUNTER 2025-01-15 23:28 | Emergency (ER) | payer OTHER ==
--- OUTSIDE RECORDS SUMMARY | 2025-01-15 23:33 | XMS REPORT | Continuity of Care Document ---
Author Name Unknown Address [address] [facility] [address] [place] [address] [facility] Address [address] [facility] [facility] [address] [place] [address] Care Team Providers Care Flue Blower Name Role Phone KATELYNN KAMARA Primary Care Physician UnaTaylor Naik APRN Attending Clinician Yue Miguelito Mcgregor Attending Clinician Unavailable Jordy Davila Attending Clinician UnavailShashank Negro Attending Clinician Unavailable Libby Gates Attending Clinician Unavailable RADIOLOGY Attending Clinician Unavailable Noemy Attending Clinician UnavailDanielle Mcgraw Attending Clinician Unavailable Danielle Barragan Attending Clinician [phone] Ruel Infante Attending Clinician Unavailable Saul GRISSOM, Ra Crane Attending Clinician +[phone] Atilio Hutchinson MD Attending Clinician [phone] ATILIO HUTCHINSON Attending Clinician UnavailWILLIAN Dawson Attending Clinician Unavaila Willian Marley MD Attending Clinician + [phone] [facility] Attending Clinician Unavailable Millie Trinh Attending Clinician Unavailable Millie Trinh Attending Clinician [phone] GC_BATC_Anh Attending Clinician Unavail able Katelynn Kamara Attending Clinician + [phone] [email or web address]_G Attending Clinician Unavaila ble Doctor Unassigned, [place] Attending Clinician U navailable Suyapa Salmon Attending Clinician UnavailADRIANA Celis Attending Clinician Unavailab fidel Trivedi CHILD NUTRITION DIRECTORAdriana Attending Clinician + [phone] Lizzy Prado Admitting Clinician Unavailable Taylor Muhammad V FIELD STAFF Admitting Clinician Yue vailable Miguelito [place] Admitting Clinician Unavailable Noemy Admitting Clinician Unavailchar harris Physician, No Primary or Family Admitting Clinic isaiah Unavailable WILLIAN KUHN Admitting Clinician Unavaila ble GC_BATC_Anh Admitting Clinician Unavail able [email or web address]_G Admitting Clinician Unavaila ble Payers Payer Name Policy Type Policy Number Effective Date Expirati on Date Source [employer] NO PREMIUM HMO [id number] 2023 00:00:00 [employer] (MEDICARE REPLACEMENT HMO) [id number] 2022 00:00:00 [employer] (MEDICARE REPLACEMENT/[employer] GE - PPO) [id number] Problems Condition Name Condition Details Condition Category Status Onset Date Resolution Date Last Treatment Date Treating Clinician Comments Source Hyperlipid emia Hyperlipid emia Problem Active 12-28 00:00: 00 [facility] Female stress incontinen ce Female Stress Incontinen ce Problem Active 12-28 00:00: [address] [facility] Pruritic rash Pruritic Rash Problem Active 5 00:00: [address] [facility] Mixed hyperlipid emia due to type 2 diabetes mellitus Mixed Hyperlipid emia Due to Type 2 Diabetes Mellitus Problem Active 5-06 00:00: [address] [facility] Anxiety Anxiety Problem Active 3- 00:00: [address] [facility] Left upper quadrant pain Left Upper Quadrant Pain Problem Active 2-04 00:00: [address] [facility] Mass of right breast Mass of Right Breast Problem Active 2-04 00:00: [address] [facility] Moderate recurrent major depression Moderate Recurrent Major Depression Problem Active 09-16 00:00: [address] [facility] Gastroesop hageal reflux disease Gastroesop hageal Reflux Disease Problem Active 09-16 00:00: [address] [facility] Neuropathy due to type 2 diabetes mellitus Neuropathy Due to Type 2 Diabetes Mellitus Problem Active 09-16 00:00: [address] [facility] Lumbar radiculopa thy Lumbar Radiculopa thy Problem Active 2023-08 0-31 00:00: [address] [facility] Insomnia Insomnia Problem Active 01-05 00:00: [address] [facility] Opioid dependence Opioid Dependence Problem Active 2022-08 0-03 00:00: [address] [facility] Bilateral ingrowing nail of toe of feet Bilateral Ingrowing Nail of Toe of Feet Problem Active 2022-08 0-03 00:00: [address] [facility] Stomatitis Stomatitis Problem Active 04-30 00:00: [address] [facility] Acute vaginitis Acute Vaginitis Problem Active 02-21 00:00: [address] [facility] Acute sinusitis Acute Sinusitis Problem Active 11-13 00:00: [address] [facility] Seasonal allergic rhinitis Seasonal Allergic Rhinitis Problem Active 11-13 00:00: [address] [facility] Low back pain Low Back Pain Problem Active 11-13 00:00: [address] [facility] 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 2 diabetes mellitus Peripheral Neuropathy Due to Type 2 Diabetes Mellitus Problem Active 11-13 00:00: [address] [facility] Type 2 diabetes mellitus Type 2 Diabetes Mellitus Problem Active 11-06 00:00: [address] [facility] Depressive disorder Depressive Disorder Problem Active 11-06 00:00: [address] [facility] Malaise and fatigue Malaise and Fatigue Problem Active 11-06 00:00: [address] [facility] Hyperglyce monik due to type 2 diabetes mellitus Hyperglyce monik Due to Type 2 Diabetes Mellitus Problem Active 2021-08 00:00: [address] [facility] Candidiasi s of vagina Candidiasi s of Vagina Problem Active 2021-08 00:00: [address] [facility] Diabetic peripheral neuropathy Diabetic Peripheral Neuropathy Problem Active 2021-08 00:00: [address] [facility] Type 2 [...] active problems No known active problems Disease [facility] [id number] Contusion of left great toe with damage to nail, initial encounter Problem [facility] [id number] Cellulitis of great toe, left Problem [facility] [id number] [id number] Tenosynovi tis of right foot Problem [facility] [id number] Pain of left great toe Problem [facility] [id number] [id number] Metatarsal geri, right foot Problem [facility] [id number] [id number] Pain in right foot Problem [facility] [phone] Ingrowing nail Problem [facility] Allergies, Adverse Reactions, Alerts Allergy Name Allergy Type Status Severity Reaction(s) Onset Date Inactive Date Treating Clinician Comments Source No Known Allergie s DA Active U 12-26 00:00: 00 [facility] No Known Allergie s DA Active U 11-30 00:00: 00 [facility] No Known Allergie s DA Active U 12-18 00:00: 00 [facility] No Known Allergie s DA Active U 09-19 00:00: 00 [facility] NO KNOWN ALLERGIE S Drug Class Active [facility] Family History Family Member Diagnosis Comments Start Date Stop Date Sourc e Mother [id number] 2021-10-02 00:00:00 2021-10-02 00:00:00 [facility] Mother Cancer, lung 2021-10-02 00:00:00 2021-10-02 00:00:00 [facility] Social History Social Habit Start Date Stop Date Quantity Comments Source Health-related Behavior 2021-10-02 00:00:00 [facility] Alcohol intake [facility] Sex Assigned At [facility] History of Tobacco Use [facility] Exposure to SARS-CoV-2 (event) 2022-06-03 00:00:00 2022-06-13 09:26:00 Not sure [facility] Tobacco use and exposure 2022-06-13 00:00:00 2022-06-13 00:00:00 Smokeless tobacco non-user [facility] Smoking Status Start Date Stop Date Source Never Smoker [facility] Unknown if ever smoked [facility] Medications Ordered Medication Name Filled Medication Name Start Date Stop Date Current Medication? Ordering Clinician Indication Dosage Frequency Signature (SIG) Comments Components Source Jardiance Jardiance 11-05 00:00: 00 No 1{table t} QD Jardiance Silvadene 1 % Silvadene 1 % 2022-08 1 00:00: 00 No 1{appli cation} QD Silvadene 1 % iodixanoL (VISIPAQUE 270-150 mL) injection 80 mL 05-08 16:47: 00 05-08 16:48 :00 No [id number] 80mL 80 mL, Intravenou s, ONCE, 1 dose, On Fri05/08/22 at 1200, Routine [facility] ibuprofen 800 mg tablet TAKE 1 TABLET BY MOUTH EVERY DAY NEEDED ibuprofen 800 mg tablet TAKE 1 TABLET BY MOUTH EVERY DAY NEEDED -18 00:00: 00 No 1 Q1D ibuprofen 800 mg tablet TAKE 1 TABLET BY MOUTH EVERY DAY NEEDED [facility] CHELE VIRAMONTES PLUS LANCET 33 gauge Misc 8- 00:00: 00 Yes USE TO TEST BLOOD GLUCOSE TWICE DAILY [facility] ibuprofen 800 mg tablet -17 00:00: 00 No 1{table t} QD take 1 tablet by oral route every day with food as needed [Pat Resp = 0 pct;] [facility] s gabapentin 300 mg ORAL TABLET 10-02 00:00: 00 No Take 1 capsule by mouth (3) three times daily. [Pat Resp = 0 pct;] [facility] Latuda 80 mg tablet 10-02 00:00: 00 No take 1 tablet by oral route every evening with food (at least 350 calories) [Pat Resp = 0 pct;] [facility] omeprazole 20 mg ORAL CAPSULE 10-02 00:00: 00 No Take 1 capsules by mouth daily. [Pat Resp = 0 pct;] [facility] s lamotrigine 200 mg tablet 10-02 00:00: 00 No take 1 tablet by oral route every evening. [Pat Resp = 0 pct;] [facility] s trazodone 100 mg tablet - 00:00: 00 No take 2 tablet by oral route daily [Pat Resp = 0 pct;] [facility] metformin 500 mg tablet 10-02 00:00: 00 No 2{table t} Q1D take 2 tablet by oral route every day with morning and evening meals [Pat Resp = 0 pct;] [facility] s oxycodone-a cetaminophe n 7.5 mg-325 mg tablet - 00:00: 00 10-02 00:00 :00 No take 1 tablet by oral by mouth twice daily as needed for pain. [Pat Resp = 0 pct;] [facility] Accu-Chek Guide test strips USE CHECK BLOOD SUGAR EVERY DAY Accu-Chek Guide test strips USE CHECK BLOOD SUGAR EVERY DAY No Accu-Chek Guide test strips USE CHECK BLOOD SUGAR EVERY DAY [facility] Accu-Chek Softclix Lancets Accu-Chek Softclix Lancets No Accu-Chek Softclix Lancets [facility] fluconazole 100 mg tablet fluconazole 100 mg tablet No fluconazol e 100 mg tablet [facility] fluconazole 150 mg tablet Take 1 tablet by oral route for 1 day. fluconazole 150 mg tablet Take 1 tablet by oral route for 1 day. No 1 fluconazol e 150 mg tablet Take 1 tablet by oral route for 1 day. [facility] hydrochloro thiazide 25 mg tablet hydrochloro thiazide 25 mg tablet No hydrochlor othiazide 25 mg tablet [facility] hydroxyzine pamoate 50 mg capsule TAKE 1 CAPSULE BY MOUTH THREE TIMES DAILY NEEDED FOR ANXIETY hydroxyzine pamoate 50 mg capsule TAKE 1 CAPSULE BY MOUTH THREE TIMES DAILY NEEDED FOR ANXIETY No hydroxyzin e pamoate 50 mg capsule TAKE 1 CAPSULE BY MOUTH THREE TIMES DAILY NEEDED FOR ANXIETY [facility] ibuprofen 800 mg tablet TAKE 1 TABLET BY MOUTH EVERY DAY WITH FOOD NEEDED ibuprofen 800 mg tablet TAKE 1 TABLET BY MOUTH EVERY DAY WITH FOOD NEEDED No ibuprofen 800 mg tablet TAKE 1 TABLET BY MOUTH EVERY DAY WITH FOOD NEEDED [facility] Jardiance 25 mg tablet Jardiance 25 mg tablet No Jardiance 25 mg tablet [facility] metformin 500 mg tablet TAKE 2 TABLETS BY MOUTH EVERY DAY WITH THE MORNING AND EVENING MEAL metformin 500 mg tablet TAKE 2 TABLETS BY MOUTH EVERY DAY WITH THE MORNING AND EVENING MEAL No metformin 500 mg tablet TAKE 2 TABLETS BY MOUTH EVERY DAY WITH THE MORNING AND EVENING MEAL [facility] omeprazole 40 mg capsule,del ayed release Take 1 capsule every day by oral route for 90 days. omeprazole 40 mg capsule,del ayed release Take 1 capsule every day by oral route for 90 days. No 1capsul e(s) Q1D omeprazole 40 mg capsule,de layed release Take 1 capsule every day by oral route for 90 days. [facility] rosuvastati n 20 mg tablet rosuvastati n 20 mg tablet No rosuvastat in 20 mg tablet [facility] True Metrix Glucose Meter USE DIRECTED True Metrix Glucose Meter USE DIRECTED No True Metrix Glucose Meter USE DIRECTED [facility] True Metrix Glucose Test Strip USE DIRECTED TO TEST BLOOD GLUCOSE LEVELS True Metrix Glucose Test Strip USE DIRECTED TO TEST BLOOD GLUCOSE LEVELS No True Metrix Glucose Test Strip USE DIRECTED TO TEST BLOOD GLUCOSE LEVELS [facility] Accu-Chek Softclix Lancets USE TO CHECK BLOOD SUGAR DIRECTED DAILY Accu-Chek Softclix Lancets USE TO CHECK BLOOD SUGAR DIRECTED DAILY No Accu-Chek Softclix Lancets USE TO CHECK BLOOD SUGAR DIRECTED DAILY [facility] gabapentin 300 mg capsule TAKE 1 CAPSULE BY MOUTH THREE TIMES A DAY gabapentin 300 mg capsule TAKE 1 CAPSULE BY MOUTH THREE TIMES A DAY No gabapentin 300 mg capsule TAKE 1 CAPSULE BY MOUTH THREE TIMES A DAY [facility] hydrocodone 10 mg-acetamin ophen 325 mg tablet TAKE 1 TABLET BY MOUTH EVERY TWELVE HOURS NEEDED FOR PAIN MAX 2/DAY hydrocodone 10 mg-acetamin ophen 325 mg tablet TAKE 1 TABLET BY MOUTH EVERY TWELVE HOURS NEEDED FOR PAIN MAX 2/DAY No hydrocodon e 10 mg-acetami nophen 325 mg tablet TAKE 1 TABLET BY MOUTH EVERY TWELVE HOURS NEEDED FOR PAIN MAX 2/DAY [facility] Jardiance 25 mg tablet Take 1 tablet every day by oral route for 90 days. Jardiance 25 mg tablet Take 1 tablet every day by oral route for 90 days. No 1 Q1D Jardiance 25 mg tablet Take 1 tablet every day by oral route for [address] [facility] metformin 500 mg tablet TAKE 2 TABLETS EVERY DAY BY ORAL ROUTE BEFORE MEAL(S) FOR 90 DAYS. metformin 500 mg tablet TAKE 2 TABLETS EVERY DAY BY ORAL ROUTE BEFORE MEAL(S) FOR 90 DAYS. No metformin 500 mg tablet TAKE 2 TABLETS EVERY DAY BY ORAL ROUTE BEFORE MEAL(S) FOR [address] [facility] methocarbam ol 500 mg tablet TAKE 1-2 TABLET BY MOUTH TWICE A DAY NEEDED methocarbam ol 500 mg tablet TAKE 1-2 TABLET BY MOUTH TWICE A DAY NEEDED No methocarba mol 500 mg tablet TAKE 1-2 TABLET BY MOUTH TWICE A DAY NEEDED [facility] omeprazole 40 mg capsule,del ayed release TAKE 1 CAPSULE BY MOUTH EVERY DAY omeprazole 40 mg capsule,del ayed release TAKE 1 CAPSULE BY MOUTH EVERY DAY No omeprazole 40 mg capsule,de layed release TAKE 1 CAPSULE BY MOUTH EVERY DAY [facility] OneTouch Delica Plus Lancet 30 gauge DIRECTED TWICE DAILY OneTouch Delica Plus Lancet 30 gauge DIRECTED TWICE DAILY No OneTouch Delica Plus Lancet 30 gauge DIRECTED TWICE DAILY [facility] OneTouch Delica [...] test strips CHECK BLOOD SUGAR TWICE DAILY [facility] rosuvastati n 20 mg tablet Take 1 tablet every day by oral route. rosuvastati n 20 mg tablet Take 1 tablet every day by oral route. No 1 Q1D rosuvastat in 20 mg tablet Take 1 tablet every day by oral route. [facility] Alcohol Pads Use as directed Alcohol Pads Use as directed No Alcohol Pads Use as directed [facility] trazodone 50 mg tablet TAKE 1 TABLET BY MOUTH EVERY DAY AT BEDTIME FOR INSOMNIA trazodone 50 mg tablet TAKE 1 TABLET BY MOUTH EVERY DAY AT BEDTIME FOR INSOMNIA No 1 Q1D trazodone 50 mg tablet TAKE 1 TABLET BY MOUTH EVERY DAY AT BEDTIME FOR INSOMNIA [facility] naloxone 4 mg/actuatio n [...] SYMPTOMS OF OPIOID EMERGENCY PERSIST, ALTERNATE NOSTRILS [facility] fluconazole 150 mg tablet TAKE 1 TABLET BY MOUTH EVERY DAY FOR 3 DAYS fluconazole 150 mg tablet TAKE 1 TABLET BY MOUTH EVERY DAY FOR 3 DAYS No fluconazol e 150 mg tablet TAKE 1 TABLET BY MOUTH EVERY DAY FOR [address] [facility] ondansetron 4 [...] 6 HOURS NEEDED FOR NAUSEA OR VOMITING [facility] OneTouch Verio Flex Meter USE DIRECTED TO CHECK BLOOD GLUCOSE OneTouch Verio Flex Meter USE DIRECTED TO CHECK BLOOD GLUCOSE No OneTouch Verio Flex Meter USE DIRECTED TO CHECK BLOOD GLUCOSE [facility] methylpredn isolone 4 mg tablets in a dose pack FOLLOW PACKAGE DIRECTIONS methylpredn isolone 4 mg tablets in a dose pack FOLLOW PACKAGE DIRECTIONS No methylpred nisolone 4 mg tablets in a dose pack FOLLOW PACKAGE DIRECTIONS [facility] diazepam 5 mg tablet TAKE 1 TABLET BY MOUTH EVERY DAY NEEDED FOR ANXIETY diazepam 5 mg tablet TAKE 1 TABLET BY MOUTH EVERY DAY NEEDED FOR ANXIETY No diazepam 5 mg tablet TAKE 1 TABLET BY MOUTH EVERY DAY NEEDED FOR ANXIETY [facility] metoclopram stephany 10 mg tablet TAKE 1 TABLET BY MOUTH EVERY 6 HOURS NEEDED FOR HICCUPS metoclopram stephany 10 mg tablet TAKE 1 TABLET BY MOUTH EVERY 6 HOURS NEEDED FOR HICCUPS No metoclopra mide 10 mg tablet TAKE 1 TABLET BY MOUTH EVERY 6 HOURS NEEDED FOR HICCUPS [facility] hydroxyzine HCl 25 mg tablet Take 1 tablet 3 times a day by oral route as needed for 10 days, for itching. hydroxyzine HCl 25 mg tablet Take 1 tablet 3 times a day by oral route as needed for 10 days, for itching. No 1 TID hydroxyzin e HCl 25 mg tablet Take 1 tablet 3 times a day by oral route as needed for 10 days, for itching. [facility] oxybutynin chloride ER 10 mg tablet,exte nded release 24 hr Take 1 tablet every day by oral route for 90 days. oxybutynin chloride ER 10 mg tablet,exte nded release 24 hr Take 1 tablet every day by oral route for 90 days. No 1 Q1D oxybutynin chloride ER 10 mg tablet,ext ended release 24 hr Take 1 tablet every day by oral route for [address] [facility] paroxetine 20 mg tablet Take 1 tablet every day by oral route for 90 days. paroxetine 20 mg tablet Take 1 tablet every day by oral route for 90 days. No 1 Q1D paroxetine 20 mg tablet Take 1 tablet every day by oral route for [address] [facility] triamcinolo ne acetonide 0.1 % topical cream APPLY A THIN LAYER TO THE AFFECTED AREA(S) BY TOPICAL ROUTE 2 TIMES PER DAY triamcinolo ne acetonide 0.1 % topical cream APPLY A THIN LAYER TO THE AFFECTED AREA(S) BY TOPICAL ROUTE 2 TIMES PER DAY No triamcinol one acetonide 0.1 % topical cream APPLY A THIN LAYER TO THE AFFECTED AREA(S) BY TOPICAL ROUTE 2 TIMES PER DAY [facility] Vital Signs Vital Name Observation Time Observation Value Comments S ource Body Weight 2024-12-28 00:00:00 171 [lb_av] [facility] BP Systolic 2024-12-28 00:00:00 170 mm[Hg] [facility] BMI (Body Mass Index) 2024-12-28 00:00:00 26.8 kg/m2 [facility] Height 2024-12-28 00:00:00 67 [in_i] [facility] BP Diastolic 2024-12-28 00:00:00 70 mm[Hg] [facility] Height 2024-11-18 00:00:00 67 [in_i] [facility] BMI (Body Mass Index) 2024-09-28 00:00:00 26.8 kg/m2 [facility] Height 2024-09-28 00:00:00 67 [in_i] [facility] BP Diastolic 2024-09-28 00:00:00 80 mm[Hg] [facility] Body Weight 2024-09-28 00:00:00 171 [lb_av] [facility] BP Systolic 2024-09-28 00:00:00 134 mm[Hg] [facility] BMI (Body Mass Index) 2024-09-16 00:00:00 28.2 kg/m2 [facility] Height 2024-09-16 00:00:00 67 [in_i] [facility] Body Weight 2024-09-16 00:00:00 180 [lb_av] [facility] BP Diastolic 2024-06-24 00:00:00 79 mm[Hg] [facility] Height 2024-06-24 00:00:00 67 [in_i] [facility] Body Weight 2024-06-24 00:00:00 169 [lb_av] [facility] BMI (Body Mass Index) 2024-06-24 00:00:00 26.5 kg/m2 [facility] BP Systolic 2024-06-24 00:00:00 145 mm[Hg] [facility] Body Weight 2024-05-11 00:00:00 174 [lb_av] [facility] BMI (Body Mass Index) 2024-05-11 00:00:00 27.3 kg/m2 [facility] Height 2024-05-11 00:00:00 67 [in_i] [facility] BP Diastolic 2024-05-11 00:00:00 74 mm[Hg] [facility] Systolic 2024-05-11 00:00:00 148 mm[Hg] [facility] Height 2024-01-06 00:00:00 67 [in_i] [facility] BP Diastolic 2024-01-06 00:00:00 79 mm[Hg] [facility] Body Weight 2024-01-06 00:00:00 171 [lb_av] [facility] BP Systolic 2024-01-06 00:00:00 146 mm[Hg] [facility] BMI (Body Mass Index) 2024-01-06 00:00:00 26.8 kg/m2 [facility] Body Weight 2023-05-27 00:00:00 175 [lb_av] [facility] BP Diastolic 2023-05-27 00:00:00 80 mm[Hg] [facility] BP Systolic 2023-05-27 00:00:00 132 mm[Hg] [facility] Height 2023-05-27 00:00:00 67 [in_i] [facility] BMI (Body Mass Index) 2023-05-27 00:00:00 27.4 kg/m2 [facility] BP Systolic 2023-04-30 00:00:00 132 mm[Hg] [facility] Body Weight 2023-04-30 00:00:00 178 [lb_av] [facility] BP Diastolic 2023-04-30 00:00:00 78 mm[Hg] [facility] BMI (Body Mass Index) 2023-04-30 00:00:00 27.9 kg/m2 [facility] Height 2023-04-30 00:00:00 67 [in_i] [facility] BP Diastolic 2023-02-21 00:00:00 77 mm[Hg] [facility] Height 2023-02-21 00:00:00 67 [in_i] [facility] BMI (Body Mass Index) 2023-02-21 00:00:00 28.5 kg/m2 [facility] BP Systolic 2023-02-21 00:00:00 137 mm[Hg] [facility] Body Weight 2023-02-21 00:00:00 182 [lb_av] [facility] BP Diastolic 2022-11-13 00:00:00 79 mm[Hg] [facility] Height 2022-11-13 00:00:00 67 [in_i] [facility] BMI (Body Mass Index) 2022-11-13 00:00:00 29 kg/m2 [facility] BP Systolic 2022-11-13 00:00:00 131 mm[Hg] [facility] Body Weight 2022-11-13 00:00:00 185 [lb_av] [facility] BP Diastolic 2022-11-06 00:00:00 78 mm[Hg] [facility] Height 2022-11-06 00:00:00 67 [in_i] [facility] BMI (Body Mass Index) 2022-11-06 00:00:00 29.4 kg/m2 [facility] BP Systolic 2022-11-06 00:00:00 142 mm[Hg] [facility] Body Weight 2022-11-06 00:00:00 188 [lb_av] [facility] BP Diastolic 2022-08-21 00:00:00 83 mm[Hg] [facility] Height 2022-08-21 00:00:00 67 [in_i] [facility] BMI (Body Mass Index) 2022-08-21 00:00:00 29 kg/m2 [facility] BP Systolic 2022-08-21 00:00:00 141 mm[Hg] [facility] Body Weight 2022-08-21 00:00:00 185 [lb_av] [facility] BP Diastolic 2022-06-14 00:00:00 80 mm[Hg] [facility] Height 2022-06-14 00:00:00 67 [in_i] [facility] BMI (Body Mass Index) 2022-06-14 00:00:00 26.9 kg/m2 [facility] BP Systolic 2022-06-14 00:00:00 110 mm[Hg] [facility] Body Weight 2022-06-14 00:00:00 172 [lb_av] [facility] Systolic blood pressure 2022-06-13 14:39:00 133 mm[Hg] [facility] Diastolic blood pressure 2022-06-13 14:39:00 81 mm[Hg] [facility] Heart rate 2022-06-13 14:39:00 61 /min [facility] Body temperature 2022-06-13 14:39:00 36.78 Amber [facility] Body height 2022-06-13 14:39:00 170.2 cm [facility] Body weight 2022-06-13 14:39:00 78.2 kg [facility] BMI 2022-06-13 14:39:00 27.00 kg/m2 [facility] Systolic blood pressure 2022-04-11 12:43:00 128 mm[Hg] [facility] Diastolic blood pressure 2022-04-11 12:43:00 57 mm[Hg] [facility] Heart rate 2022-04-11 12:43:00 73 /min [facility] Body temperature 2022-04-11 12:43:00 37 Amber [facility] Respiratory rate 2022-04-11 12:43:00 16 /min [facility] Body height 2022-04-11 12:43:00 170.2 cm [facility] Body weight 2022-04-11 12:43:00 78.019 kg [facility] BMI 2022-04-11 12:43:00 26.94 kg/m2 [facility] BP Diastolic 2022-02-18 00:00:00 74 mm[Hg] [facility] Height 2022-02-18 00:00:00 67 [in_i] [facility] BMI (Body Mass Index) 2022-02-18 00:00:00 28 kg/m2 [facility] BP Systolic 2022-02-18 00:00:00 134 mm[Hg] [facility] Body Weight 2022-02-18 00:00:00 2864 [oz_av] [facility] Procedures Procedure Date / Time Performed Performing Clinician Source MAMMO, diagnostic, bilateral 2024-09-20 00:00:00 [facility] US, breast, bilateral 2024-09-20 00:00:00 [facility] MAMMO, screening, digital, bilateral 2024-09-16 00:00:00 [facility] MRI, lumbar spine, w/o contrast 2024-06-24 00:00:00 [facility] MAMMO, screening, digital, bilateral, w/ CAD 2024-01-06 00:00:00 [facility] US, liver 2023-05-27 00:00:00 [facility] MAMMO, screening, digital, bilateral, w/ CAD 2023-02-21 00:00:00 [facility] MAMMO, 3D rendering, w/o image post-processing 2022-08-21 00:00:00 [facility] MAMMO, screening, digital, bilateral 2022-08-12 00:00:00 [facility] MAMMO, screening, bilateral 2022-08-12 00:00:00 [facility] Nominal Fee 2022-01-07 00:00:00 [facility] Urinalysis, Auto W/O Scope 2022-01-07 00:00:00 [facility] Established Patient Office Visit-Level Three 2022-01-07 00:00:00 [facility] Trichomonas and Tracy / Wet Mount (T&M) 2022-01-07 00:00:00 [facility] Urinalysis culture and sensitivity 2022-01-07 00:00:00 [facility] Chylmd Trach DNA Amp Probe 2022-01-07 00:00:00 [facility] N.Gonorrhea DNA Amp Prob 2022-01-07 00:00:00 [facility] MICROALBUMIN QUANTITATIVE 2022-01-07 00:00:00 [facility] Albumin Creatinine Ratio 2022-01-07 00:00:00 [facility] Hepatitis Panel - Acute 2022-01-07 00:00:00 [facility] Hemoglobin A1C 2022-01-07 00:00:00 [facility] Complete Blood Count (CBC) 2022-01-07 00:00:00 [facility] Syphilis Test, qualitative 2022-01-07 00:00:00 [facility] HIV-1 antigen(s), HIV-1 and HIV-2 antibodies, single result 2022-01-07 00:00:00 [facility] Comprehensive Metabolic Panel 2022-01-07 00:00:00 [facility] Nominal Fee 2021-10-02 00:00:00 [facility] New Patient Office Visit-Level Four 2021-10-02 00:00:00 [facility] Plan of Care Planned Activity Planned [...] End Date/Time Encounter Type Admission Type Attending [facility] Care Facility Care Department Encounter ID Source 2024-11-23 12:41:00 Inpatient Taylor Carson [id number] [facility] 2024-06-21 12:59:00 Outpatient Miguelito Spring CLS [id number] [facility] 2022-05-23 12:35:12 Outpatient CHW CHW [id number] [facility] 2024-12-28 00:00:00 2024-12-28 00:00:00 Taylor Muhammad, STEEL PLACER: [address] [place] [address] , [address], [place] [address] , Ph. [facility] VM_HOU_Beel er Manske [id number] [facility] 2024-12-26 21:02:00 2024-12-27 00:21:00 Emergency EM Jordy Davila HCAMN NURA [id number] [facility] 2024-12-21 08:00:00 2024-12-21 08:00:00 Outpatient Taylor Carson [id number] [facility] 2024-11-29 23:57:00 2024-11-30 00:51:00 Emergency EM Jordy Davila HCAMN NURA [id number] [facility] 2024-11-18 00:00:00 2024-11-18 00:00:00 Taylor Muhammad, STEEL PLACER: [address] [place] [address] , [address], [place] [address] , Ph. [facility] - VM_HOU_Beel er Manske [id number] [facility] 2024-09-28 00:00:00 2024-09-28 00:00:00 Taylor Muhammad, STEEL PLACER: [address] [place] [address] , [address], [place] [address] , Ph. [facility] [place] - VM_HOU_Beel er Manske [id number] [facility] 2024-09-23 08:00:00 2024-09-23 08:00:00 Outpatient Taylor Carson FELICIA BRET [id number] [facility] 2024-09-16 00:00:00 2024-09-16 00:00:00 Taylor Muhammad, STEEL PLACER: [address] [place] [address] , [address], [place] [address] , Ph. [facility] - VM_HOU_Beel er Manske [id number] [facility] 2024-08-15 22:58:00 2024-08-16 00:55:00 Emergency EM Trae Shashank HCAMN NURA [id number] [facility] 2024-07-06 00:00:00 2024-07-06 00:00:00 (TEL) CLS CLS [id number] [facility] 2024-06-24 00:00:00 2024-06-24 00:00:00 Piper Khalil MD: [address] [place] [address] , [address], [place] [address] , Ph. [facility] [place] - VM_HOU_Beel er Manske [id number] [facility] 2024-06-21 00:00:00 2024-06-21 00:00:00 Office Visit- Est Pt.- Level 3 CLS CLS [id number] [facility] 2024-05-11 00:00:00 2024-05-11 00:00:00 Taylor Muhammad, STEEL PLACER: [address] [place] [address] , [address], [place] [address] , Ph. [facility] [place] - VM_HOU_Beel er Manske [id number] [facility] 2024-05-07 12:57:00 2024-05-07 18:50:00 Emergency EM Libby Gates [facility] [id number] [facility] 2024-01-06 00:00:00 2024-01-06 00:00:00 Lizzy Prado MD: [address] [place] [address] , [address], [place] [address] , Ph. [facility]FP [place] - [facility] - [place] - VM_HOU_Beel er Manske [id number] [facility] 2023-06-09 00:00:00 2023-06-09 00:00:00 Outpatient R RADIOLOGY [facility] [id number] Univers ity [facility] 2023-06-03 00:00:00 2023-06-03 00:00:00 Outpatient Balitbit_R_ HOU_MD VFP VFP [id number] [facility] 2023-05-27 00:00:00 2023-05-27 00:00:00 Outpatient Balitbit_R_ HOU_MD VFP VFP [id number] [facility] 2023-05-27 00:00:00 2023-05-27 00:00:00 Outpatient VFP VFP [id number] [facility] 2023-05-27 00:00:00 2023-05-27 00:00:00 Lizzy Prado MD: [address] [place] [address] , [address], [place] [address] , Ph. [place]FP [place] - [facility] - [place] - VM_HOU_Beel er Manske [id number] [facility] 2023-05-16 00:00:00 2023-05-16 00:00:00 Outpatient VFP VFP [id number] [facility] 2023-05-16 00:00:00 2023-05-16 00:00:00 Outpatient VFP VFP [id number] [facility] 2023-04-30 00:00:00 2023-04-30 00:00:00 Gilberto Kathleen MD: [address] [place] [address] , [address], [place] [address] , Ph. [facility]FP [place] - [facility] [place] - JOSIE_VIBHA_Magali Vazquez [id number] [facility] 2023-04-24 11:34:17 2023-04-24 11:34:17 Outpatient SFA SFA [id number] [facility] Dean 2023-04-12 00:00:00 2023-04-12 00:00:00 Outpatient Balitbit_R_ HOU_MD VFP VFP [id number] [facility] 2023-04-12 00:00:00 2023-04-12 00:00:00 Outpatient Balitbit_R_ HOU_MD VFP VFP [id number] [facility] 2023-04-12 00:00:00 2023-04-12 00:00:00 Outpatient Balitbit_R_ HOU_MD VFP VFP [id number] [facility] 2023-03-25 13:44:00 2023-03-25 13:44:00 Outpatient Danielle Barragan Samia W [id number] [facility] 2023-03-25 13:44:00 2023-03-25 13:44:00 Outpatient Danielle Barragan Samia [id number] [facility] 2023-03-12 00:00:00 2023-03-12 00:00:00 Outpatient Balitbit_R_ HOU_MD VFP VFP [id number] [facility] 2023-02-21 00:00:00 2023-02-21 00:00:00 Outpatient Balitbit_R_ HOU_MD VFP VFP [id number] [facility] 2023-02-21 00:00:00 2023-02-21 00:00:00 Outpatient Balitbit_R_ HOU_MD VFP VFP [id number] [facility] 2023-02-21 00:00:00 2023-02-21 00:00:00 Outpatient Balitbit_Zane_ TREVOR VFP VFP [id number] [facility] 2023-02-21 00:00:00 2023-02-21 00:00:00 Outpatient VFP VFP [id number] [facility] 2023-02-21 00:00:00 2023-02-21 00:00:00 Lizzy Prado MD: [address] [place] [address] Center , [address], [place] [address] , Ph. [facility]FP [place] - [facility] [place] - VM_HOU_Beel er Manske [id number] [facility] 2023-02-20 00:00:00 2023-02-20 00:00:00 Outpatient Balitbit_R VFP VFP [id number] [facility] 2022-12-18 19:07:00 2022-12-18 19:55:00 Emergency EM Ruel Infante HCACL TERS [id number] [facility] 2022-11-18 00:00:00 2022-11-18 00:00:00 Outpatient VFP VFP [id number] [facility] 2022-11-18 00:00:00 2022-11-18 00:00:00 Outpatient VFP VFP [id number] [facility] 2022-11-18 00:00:00 2022-11-18 00:00:00 Outpatient VFP VFP [id number] [facility] 2022-11-13 00:00:00 2022-11-13 00:00:00 Rene Kat MD: [address] [place] [address] , [address], [place] [address] , Ph. VFP [facility] - [place] - VM_HOU_Beel er Manske [id number] [facility] 2022-11-06 00:00:00 2022-11-06 00:00:00 Outpatient Balitbit_R VFP VFP [id number] [facility] 2022-11-06 00:00:00 2022-11-06 00:00:00 Outpatient Balitbit_R VFP VFP [id number] [facility] 2022-11-06 00:00:00 2022-11-06 00:00:00 Gilberto Kathleen MD: [address] [place] [address] , [address], [place] [id number] , Ph. VFP [place] - [facility] - [place] - VM_HOU_Beel er Manske [id number] [facility] 2022-11-05 00:00:00 2022-11-05 00:00:00 Outpatient Balitbit_R VFP VFP [id number] [facility] 2022-09-19 17:20:00 2022-09-19 19:04:00 Emergency EM Trae, Shashank [facility] [id number] [facility] 2022-08-21 00:00:00 2022-08-21 00:00:00 Outpatient Balitbit_R VFP VFP [id number] [facility] 2022-08-21 00:00:00 2022-08-21 00:00:00 Outpatient Balitbit_R VFP VFP [id number] [facility] 2022-08-21 00:00:00 2022-08-21 00:00:00 Vandana Gates, STEEL PLACER: [address] [place] [address] , [address], [place] [address] , Ph. VFP [place] - [facility] - [place] - VM_HOU_Beel er Manske [id number] [facility] 2022-07-04 00:00:00 2022-07-04 00:00:00 Outpatient Balitbit_R VFP VFP [id number] [facility] 2022-06-14 00:00:00 2022-06-14 00:00:00 Outpatient Balitbit_R VFP VFP [id number] [facility] 2022-06-14 00:00:00 2022-06-14 00:00:00 Lizzy Prado MD: [address] , [address], [place] [address] , Ph. VFP [place] - [facility] [place] - VM_HOU_Magali er George [id number] [facility] 2022-06-13 09:30:00 2022-06-13 10:00:00 Office Visit Ra Hughes, [facility] 1.114 350.1.13.10 4.2.7.2.686 [id number] [facility] 2022-06-13 09:30:00 2022-06-13 09:30:00 Outpatient Zane [facility] [id number] [facility] 2022-05-14 00:00:00 2022-05-14 00:00:00 Outpatient Eve_R VFP VFP [id number] [facility] 2022-05-08 11:33:54 2022-05-08 23:59:00 Outpatient WILLIAN WALKER [facility] [id number] [facility] 2022-05-08 11:33:54 2022-05-08 23:59:00 Hospital Encounter Willian Kuhn [facility] 1.114 350.1.13.10 [id number] [id number] [facility] 2022-04-11 09:30:00 2022-04-11 09:45:00 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 [facility] Willian Kuhn [facility] 1.114 350.1.13.10 [id number] [id number] [facility] 2022-04-11 09:30:00 2022-04-11 09:30:00 Outpatient WILLIAN WALKER [facility] [id number] [facility] 2022-04-11 08:30:00 2022-04-11 09:00:00 Office Visit Ra Hughes Joseph [facility] [id number] 350.1.13.10 4.2.7.2.686 [id number] [facility] 2022-04-11 08:30:00 2022-04-11 08:30:00 Outpatient Zane WILLIAN KUHN [facility] [id number] [facility] 2022-04-11 08:30:00 2022-04-11 08:30:00 Outpatient WILLIAN WALKER [facility] [id number] [facility] 2022-03-09 07:11:00 2022-03-09 07:11:00 Outpatient Millie Trinh [facility] [id number] [facility] 2022-03-09 07:11:00 2022-03-09 07:11:00 Outpatient Millie Trinh [id number] [facility] 2022-02-24 11:37:00 2022-02-24 11:37:00 Outpatient GC_JAZMYNC_Bertha russo-Yeni [facility] [id number] [facility] 2022-02-22 05:18:00 2022-02-22 05:18:00 Outpatient GC_JAZMYNC_Kaushalw ler-Yeni [facility] [id number] [facility] 2022-02-22 00:00:00 2022-02-22 00:00:00 Outpatient Katelynn Mosley [facility] [id number] 2022-02-22 00:00:00 2022-02-22 00:00:00 Katelynn huynh MD: [address] [address] , Ph. [facility] - GC_BATC_Gul f [facility] [id number] [facility] 2022-02-18 03:23:00 2022-02-18 03:23:00 Outpatient GC_BATC_Fow ler-Gulde [facility] [id number] [facility] 2022-02-18 00:00:00 2022-02-18 00:00:00 Katelynn huynh MD: [address] [address] , Ph. [facility] - GC_BATC_Gul f [facility] [id number] [facility] 2022-02-18 00:00:00 2022-02-18 00:00:00 Outpatient Katelynn Mosley [facility] [id number] 2022-02-14 04:13:00 2022-02-14 04:13:00 Outpatient GC_BATC_Bertha ler-Stefanlde [facility] [id number] [facility] 2022-02-14 02:56:00 2022-02-14 02:56:00 Outpatient GC_SEFP_Mro zinski_G [facility] [id number] [facility] 2022-01-08 23:08:00 2022-01-08 23:08:00 Outpatient Millie Trinh CHW [id number] [facility] 2022-01-08 23:08:00 2022-01-08 23:08:00 Outpatient Millie Trinh [id number] [facility] 2022-01-07 14:00:00 2022-01-07 14:00:00 Outpatient Millie Trinh JANELL CHW [id number] [facility] 2022-01-07 14:00:00 2022-01-07 14:00:00 Stephan holland Patient Office Visit-[place] Millie Negron JANELL [id number] [facility] 2022-01-07 09:07:00 2022-01-07 09:07:00 Outpatient Olivia Trinhdariel MACIEL W [id number] [facility] 2021-11-13 14:36:00 2021-11-13 14:36:00 Outpatient Millie Trinh JANELL CHW [id number] [facility] 2021-11-05 12:30:00 2021-11-05 12:30:00 Outpatient Millie Trinh JANELL W [id number] [facility] 2021-10-30 15:57:00 2021-10-30 15:57:00 Outpatient Millie Trinh JANELL W [id number] [facility] 2021-10-17 12:00:00 2021-10-17 12:00:00 Outpatient Millie Trinh JANELL CHW [id number] [facility] 2021-10-08 08:11:00 2021-10-08 08:11:00 Outpatient Millie Trinh JANELL W [id number] [facility] 2021-10-08 00:00:00 2021-10-08 00:00:00 Orders Only Doctor Unassigned, [place] [facility] [id number] 350.1.13.10 [id number] [id number] [facility] 2021-10-02 14:39:00 2021-10-02 14:39:00 Outpatient Suyapa Salmon CHW [id number] [facility] 2021-10-02 14:39:00 2021-10-02 14:39:00 Outpatient Suyapa Salmon [facility] [id number] [facility] 2021-10-02 10:00:00 2021-10-02 10:00:00 Outpatient Millie Trinh [facility] [id number] [facility] 2021-10-02 10:00:00 2021-10-02 10:00:00 New Patient Office Visit-Millie Kennedy [facility] [id number] [facility] 2021-09-04 12:08:00 2021-09-04 14:54:00 Emergency X [facility] ERT [id number] [facility] 2021-09-04 12:08:00 2021-09-04 14:54:00 Emergency [facility] ([facility]) [id number] 350.1.13.10 4.2.7.2.686 [id number] [facility] Results Test Description Test Time Test Comments Results Result Co mments Source TROP-I HIGH [id number] 22:31:00* Test Item Value Reference Range Interpretation Comme nts TROP-I HIGH SENSITIVITY (test code = TROPIHS) <4 ng/L 0-34 N CAUTION: Units o f the current TROPI-HS test methodology(ng/L) differ from the prior test methodology (ng/mL) by afactor of 1000. 99th Percentile: Females: 0 - 34 ng/L Males: 0 - 54 ng/LThese results were obtained using [employer] CI 1900 TnIHreagent. Results from different methodologies should not becompared to one another as quantitative results may vary bymethod. CBC W/AUTO [id number] 22:06:00* Test Item Value Reference Range Interpretation Comme nts WHITE BLOOD CELL (test code = WBC) 9.0 K/mm3 4.5-11.0 N RED BLOOD CELL (test code = RBC) 4.35 M/mm3 3.80-5.20 N HEMOGLOBIN (test code = HGB) 13.1 gm/dL 12.0-16.0 N HEMATOCRIT (test code = HCT) 38.9 % 36.0-48.0 N MEAN CELL VOLUME (test code = MCV) 89.4 UM3 82.0-99.0 N MEAN CELL HGB (test code = MCH) 30.1 UUG 25.5-32.5 N MEAN CELL HGB CONCETRATION (test code = MCHC) 33.7 gm/dL 29.0-35.5 N RED CELL DISTRIBUTION WIDTH (test code = RDW) 12.7 % 11.5-15.0 N RED CELL DISTRIBUTION WIDTH SD (test code = RDW-SD) 42.0 fL 34.8-50.2 N PLATELET COUNT (test code = PLT) 250 K/mm3 150-400 N MEAN PLATELET VOLUME (test c ode = MPV) 9.5 fl 7.4-10.4 N NEUTROPHIL % (test code = NT%) 70.0 % 49.0-76.0 N IMMATURE GRANULOCYTE % (test code = IG%) 0.3 % 0.0-0.4 N LYMPHOCYTE % (test code = LY%) 18.1 % 23.0-38.0 L MONOCYTE % (test code = MO%) 10.5 % 1.0-10.0 H EOSINOPHIL % (test code = EO%) 0.9 % 1.0-5.0 L BASOPHIL % (test code = BA%) 0.2 % 0.0-1.0 N NUCLEATED RBC % (test code = NRBC%) 0.0 % 0.0-0.1 N NEUTROPHIL # (test code = NT#) 6.3 K/mm3 2.4-6.3 N IMMATURE GRANULOCYTE # (test code = IG#) 0.03 x10 3/uL 0.00-0.07 N LYMPHOCYTE # (test code = LY#) 1.6 K/mm3 1.2-4.0 N MONOCYTE # (test code = MO#) 1.0 K/mm3 0.0-0.6 H EOSINOPHIL # (test code = EO#) 0.1 K/MM3 0.0-0.7 N BASOPHIL # (test code = BA#) 0.0 K/mm3 0.0-0.2 N NUCLEATED RBC # (test code = NRBC#) 0.00 X10 3uL 0.00-0.01 N [id number] 09:41:00* Test Item Value Reference Range Interpretation Comme nts SURGICAL (test code = SR) R UN DATE: 12/24/24 [facility] PAGE 1 RUN TIME: 941 Specimen Inquiry RUN USER: INTERFACE P ATIENT: MAX PANDYA LOC: [facility]AZ U #: [id number] AGE/SX: 59/F ROOM: RE12/21/24REG DR: Taylor Muhammad V NOV : 67 BED: DIS: STATUS: PRE REF TLOC: SPEC #: [id number] RECD: 12/22/24 STATUS: MONICA COX #: [id number] CALIN: 12/21/24- SUBM DR: Taylor Muhammad V FIELD STAFF ENTERED: 12/22/24 SP TYPE: SURGICAL OTHR DR: Miguelito Spring DO ORDERED: [id number], ANATOMIC SPEC COPIES TO: Taylor Muhammad V FIELD STAFF [address] [facility] [address] [place] [address] Miguelito Spring DO [address] [facility] [address] [place] [address] PROCEDURES: [id number] (12/22/24) TISSUES: BREAST NOS - RIGHT STEREOTATIC CORE BIOPSY FINAL DIAGNOSIS BREAST, RIGHT ASYMMETRY AT 10:00, STEREOTACTIC BIOPSY: - Dense hyalinized fibrous stroma with fibroadenomatoid change and small benign glands. - Negative for atypical hyperplasia and malignancy. GROSS DESCRIPTION Specimen A has been fixed in formalin, labeled with the patient's name, medical recordnumber, "right breast stereotactic core needle bx" and consists of an aggregate oftan-yellow lobulated adipose tissue fragments measuring 3.0 x 2.0 x 0.7 cm in aggregate. The specimen is submitted in toto in A1. Excision time: 134112/21/24Time in formalin: 134412/21/24e specimen has been fixed in formalin between 6-72 hours per CAP guidelines. Technical component excluding immunohistochemistry is performed at [facility], [address] [place] [address] Technical component of all immunohistochemistry is performed at [facility], [address], [address], [place] [address] Immunohistochemistry: This test was developed and its performance characteristicsdetermined by this laboratory. It has not been approved nor does it need approval by the [place] CONTINUED ON NEXT PAGE R UN DATE: 12/24/24 [facility] PAGE 2 RUN TIME: 941 Specimen Inquiry RUN USER: INTERFACE S VICKY #: [id number] PATIENT: MAX PANDYA #[id number] (Continued) GROSS DESCRIPTION (Continued) FDA. Appropriate positive and negative controls are reviewed and judged to be acceptable.This laboratory is certified under the Clinical Laboratory Improvement Amendments (CLIA-88)as qualified to perform high complexity clinical laboratory testing. Unless gross only, the diagnosis is based upon microscopic examination. MICROSCOPIC DESCRIPTION Microscopic examination supports the pathologic diagnosis. CLINICAL INFORMATION COLLECTION DATE: 12/21/2024PRE-OP DIAGNOSIS: RIGHT BREAST ASYMMETRY 10:00 ---- Signed SIGNATURE ON FILE Marina Joseph 12/24/24 0941 END OF REPORT BASIC METABOLIC [id number] 23:58:00* Test Item Value Reference Range Interpretation Comme nts SODIUM (test code = NA) 136 mmol/L 136-145 N POTASSIUM (test code = K) 3.8 mmol/L 3.5-5.1 N CHLORIDE (test code = CL) 103 mmol/L 98-107 N CARBON DIOXIDE (test code = CO2) 28.0 mmol/L 20-31 N ANION GAP (test code = GAP) 8.6 0-20 N GLUCOSE (test code = GLU) 103 mg/dL 74-106 N BLOOD UREA NITROGEN (test code = BUN) 12 mg/dL 9-23 N GLOMERULAR FILTRATION RATE (test code = GFR) 103 mL/min The Glomerular Filtration Rate is a [...] <18 years. CREATININE (test code = CREAT) 0.62 mg/dL 0.60-1.30 N CALCIUM (test code = CA) 9.2 mg/dL 8.7-10.4 N ESTIMATED CREAT CLEARANCE (test code = ECRCL) 96 mL/min >30 HEPATIC FUNCTION PANEL [id number] 23:58:00* Test Item Value Reference Range Interpretation Comme nts TOTAL PROTEIN (test code = PROT) 7.2 [...] code = ALKP) 80 U/L 46-116 N [id number] 23:58:00* Test Item Value Reference Range Interpretation Comme [facility] LIPASE (test code = LIP) 26 IU/L 12-53 N TROP-I HIGH [id number] 23:58:00* Test Item Value Reference Range Interpretation Comme [facility] TROP-I HIGH SENSITIVITY (test code = TROPIHS) <3 ng/L 0-34 N CAUTION: Units o f the current TROPI-HS test methodology(ng/L) differ from the prior test methodology (ng/mL) by afactor of 1000. 99th Percentile: Females: 0 - 34 ng/L Males: 0 - 54 ng/LThese results were obtained using [employer] CI 1900 TnIHreagent. Results from different methodologies should not becompared to one another as quantitative results may vary bymethod. CBC W/AUTO [id number] 23:41:00* Test Item Value Reference Range Interpretation Comme [facility] WHITE BLOOD CELL (test code = WBC) [...] 0.0-0.2 N UA RFLX MICR CULT IF [id number] 23:33:00* Test Item Value Reference Range Interpretation [...] Description: CLEAN CATCHUA RFLX MICR CULT IF [id number] 16:50:00* Test Item Value Reference Range Interpretation [...] for culture: Dysuria/FrequencySpecimen Description: CLEAN CATCHUR HCG [id number] 16:50:00* Test Item Value Reference Range Interpretation Comme nts UR HCG QUAL (test code = HCGQLU) NEGATIVE NEGATIVE Indication for culture: Dysuria/FrequencySpecimen Description: CLEAN CATCHBASIC METABOLIC [id number] 13:49:00* Test Item Value Reference Range Interpretation [...] 9.2 mg/dl 8.0-10.5 N HEPATIC FUNCTION PANEL [id number] 13:49:00* Test Item Value Reference Range Interpretation [...] code = ALKP) 85 Units/L 50.0-136.0 N [id number] 13:49:00* Test Item Value Reference Range Interpretation Comme nts LIPASE (test code = LIP) 27 Units/L 16-77 N CBC W/AUTO [id number] 13:34:00* Test Item Value Reference Range Interpretation [...] N - XR FOOT 3 + V [id number] 19:45:00 [facility] : 1965 Sex: F FAX: Lizzy Ray MD [phone] [place]: [address] St: REG FAX: Ruel Infante MD Name: ENE,MAX [facility] : 1965 Age/S: 57/F Unit #: [id number] Loc: [place] Phys: Ruel Infante MD Acct: [id number] Dis Date: Status: REG ER PHONE #: Exam Date: 12/18/20221921 FAX #: Reason: lateral midfoot pain, trauma EXAMS: CPT CODE: [id number] XR FOOT 3 + V RT 27517 EXAM: - XR FOOT 3 + V [...] Prado MD; Ruel Infante MD Technologist: Natasha Antoine RT(R)(CT) Trnscrd Date/Time/By: 12/18/2022 (1944) : By: AnastaciaMKW1 Orig Print D/T: S: 12/18/2022 (1948) PAGE 1 Signed ReportHemoglobin A1c measurement device [id number] 17:19:00* Test Item Value Reference Range Interpretation Comme nts Hemoglobin A1c/Hemoglobin.to anthony in Blood (test code = 4548-4) 6.4 % 5.7-6.4 [facility] PracticeUrinalysis macro (dipstick) panel - [id number] 17:18:00* Test Item Value Reference Range Interpretation Comme nts Interpretation UA test performed using: (test code = Interpretation UA test performed using:) Automated device/analyzer (19443,QW) Interpretation Color (test code = Interpretation Color) Yellow Interpretation Clarity (test code = Interpretation Clarity) Clear Interpretation Glucose (mg/dL) (test code = Interpretation Glucose (mg/dL)) (Greater than or equal to) >= 1000 Interpretation Bilirubin (test code = Interpretation Bilirubin) Negative Interpretation Ketone (mg/dL) (test code = Interpretation Ketone (mg/dL)) Negative Interpretation Specific [place] (test code = Interpretation Specific [place]) 1.010 Interpretation Occult Blood (test code = Interpretation Occult Blood) Negative Interpretation pH (test code = Interpretation pH) 6 Interpretation Protein (test code = Interpretation Protein) Negative Interpretation Urobilinogen (test code = Interpretation Urobilinogen) 0.2 Interpretation Nitrites (test code = Interpretation Nitrites) Negative Interpretation Leukocytes (test code = Interpretation Leukocytes) Negative [id number] 18:17:00* Test Item Value Reference Range Interpretation Comme nts LIPASE (test code = LIP) 82 Units/L 65.0-230.0 N B-TYPE NATRIURETIC [id number] 18:17:00* Test Item Value Reference Range Interpretation Comme nts B-TYPE NATRIURETIC PEPTIDE ( test code = BNP) 46.2 PG/ML 5-100 N TROP-I HIGH [id number] 18:17:00* Test Item Value Reference Range Interpretation Comme nts TROP-I HIGH SENSITIVITY (test code = TROPIHS) 5.4 pg/mL 0.0-51.4 N CAUTION: Units o f the current TROPI-HS test methodology(pg/mL) differ from the prior test methodology (ng/mL) by afactor of 1000. 99th Percentile: Females: 0.0-51.4 pg/mL Males: 0.0-76.2 pg/mLThese results were obtained using [employer] TnIHreagent. Results from different methodologies should not becompared to one another as quantitative results may vary bymethod. BASIC METABOLIC [id number] 18:17:00* Test Item Value Reference Range Interpretation [...] ECRCL) 83 mL/min >30 HEPATIC FUNCTION PANEL [id number] 18:17:00* Test Item Value Reference Range Interpretation [...] Units/L 50.0-136.0 N - XR CHEST 1 [id number] 18:06:00 [facility] : 1965 Sex: F FAX:Shashank Larkin MD [place]: St: REG Name: MAX PANDYA [facility] : 1965 Age/S: 57/F [address] [facility] Unit #: [id number] Loc: [address] Phys: [place] [id number] Acct: [id number] Dis Date: Status: REG ER PHONE #: [phone] Exam Date: 09/19/2022 1757 FAX #: [phone] Reason: SOB EXAMS: CPT CODE: [id number] XR CHEST 1 V 17331 Location: [facility] EXAM: - XR CHEST 1 V DATE: 09/19/2022 5:44 PM HISTORY: SOB COMPARISON: None FINDINGS: No airspace consolidation or pleural effusions. No pneumothorax. The cardiovascular silhouette is within normal limits. No bony lesions. IMPRESSION: No acute cardiopulmonary abnormality. at 1806 Reported and signed by: TYREE JEFFERSON MD CC: Shashank Larkin MD Technologist: SHELLY [facility] Date/Time/By: 09/19/2022 (1805) : By: Steven PAGE 1 Signed Report FAX: Shashank Larkin MD [place]: St: REG --- Name: MAX PANDYA [facility] : 1965 Age/S: 57/F [address] [employer] Unit#: [id number] Loc: [address] Phys: [place] [id number] Acct: [id number] Dis Date: Status: REG ER PHONE #: [phone] Exam Date: 09/19/2022 6853 FAX #: [phone] Reason: SOB EXAMS: CPT CODE: [id number] XR CHEST 1 V 75242 (Continued) Orig Print D/T: S: 09/19/2022 (180) PAGE 2 Signed ReportPROTHROMBIN [id number] 18:04:00* Test Item Value Reference Range Interpretation [...] ANTIPHOSPHOLIPID ANTIBODIES 2.5 - 3.5 THROMBOPLASTIN TIME [id number] 18:04:00* Test Item Value Reference Range Interpretation Comme nts THROMBOPLASTIN TIME PARTIAL (test code = PTT) 29.40 SECONDS 25.86-36.07 N [facility] Therapeutic Range - APTT of 55.8-85.4 secondscorrelates with plasma heparin concentration of 0.2-0.4 u/mL D-DIMER/[id number] 18:04:00* Test Item Value Reference Range Interpretation Comme nts D-DIMER/FSP (test code = DDIMER) <215 ng/mLFEU 0-500 N Thrombosis and/o r Pulmonary Embolism and the clinicalcut-off value for exclusion (500 ng/mL FEU) of theseconditions is validated by the logistics center manager of the method. A negative D-Dimer result when combined with a clinicalassessment of low pretest probability has been shown to havea high negative predictive value of DVT or PE. D-Dimer values >500 ng/mL FEU are not diagnostic for DVT,PE, or DIC without other confirmatory tests and appropriateclinical evaluations. CBC W/AUTO [id number] 17:58:00* Test Item Value Reference Range Interpretation [...] 0.00-0.01 N Bacteria identified in Urine by [id number] 00:00:00* Test Item Value Reference Range Interpretation Comme nts culture, urine (test code = culture, urine) see below no growth [place] 1996 panel - [id number] 00:00:00* Test Item Value Reference Range Interpretation Comme nts Hepatitis A virus Ab [Presen ce] in Serum by Immunoassay (test code = 85632-6) non-reactive non-reactive Hepatitis B virus surface Ab [Presence] in Serum by Immunoassay (test code = 01633-7) non-reactive non-reactive Hepatitis B virus surface Ag [Presence] in Serum or Plasma by Immunoassay (test code = 5196-1) non-reactive non-reactive Hepatitis B virus core Ab [Presence] in Serum or Plasma by Immunoassay (test code = 07017-4) non-reactive non-reactive Hepatitis C virus Ab [Presen ce] in Serum or Plasma by Immunoassay (test code = 13779-7) non-reactive non-reactive Hepatitis C virus Ab Signal/Cutoff in Serum or Plasma by Immunoassay (test code = 19275-9) 0.02 <1.00 [facility], [id number] 00:00:00* Test Item Value Reference Range Interpretation Comme nts Triiodothyronine resin uptak e (T3RU) in Serum or Plasma (test code = 3050-2) 29 % 22-35 Thyroxine (T4) [Mass/volume] in Serum or Plasma (test code = 3026-2) 9.0 mcg/dL 5.1-11.9 Thyroxine (T4) free index in Serum or Plasma by calculation (test code = 42083-9) 2.6 1.4-3.8 Thyrotropin [Units/volume] i n Serum or Plasma (test code = 3016-3) 1.18 mIU/L [facility] Medical[facility] 1996 panel - Serum or [id number] 00:00:00* Test Item Value Reference Range Interpretation Comme nts Cholesterol [Mass/volume] in Serum or Plasma (test code = 2093-3) 144 mg/dL <200 Cholesterol in HDL [Mass/volume] in Serum or Plasma (test code = 2085-9) 52 mg/dL See_Comment [Automated Uanbai] The system which generated this result transmitted reference range: > or = 50. The reference range was not used to interpret this result as normal/abnormal. Triglyceride [Mass/volume] in Serum or Plasma (test code = 2571-8) 174 mg/dL <150 H Cholesterol in LDL [Mass/volume] in Serum or Plasma by calculation (test code = 49859-4) 67 mg/dL (calc) Cholesterol.total/Cho lesterol in HDL [Mass Ratio] in Serum or Plasma (test code = 9830-1) 2.8 (calc) <5.0 Cholesterol non HDL [Mass/volume] in Serum or Plasma (test code = 05757-4) 92 mg/dL (calc) <130 [facility] - Serum or [id number] 00:00:00* Test Item Value Reference Range Interpretation [...] by Creatinine-based formula (CKD-EPI) (test code = 46208-1) 87 mL/min/1.73m2 See_Comment [Automate d message] The system which generated this result transmitted reference range: > or = 60. The reference range was not used to interpret this result as normal/abnormal. Glomerular filtration rate/1.73 sq M.predicted among blacks [Volume Rate/Area] in Serum, Plasma or Blood by Creatinine-based formula (CKD-EPI) (test code = 31141-7) 101 mL/min/1.73m2 See_Comment [Automated message] The system [...] in Serum or Plasma (test code = 5-0) 104 mmol/L 98-110 Carbon dioxide, total [Moles/volume] in Serum or Plasma (test code = 2027-) 27 mmol/L 20-32 Calcium [Mass/volume] in Serum or Plasma (test code = 37760-5) 9.8 mg/dL 8.6-10.4 Protein [Mass/volume] in Serum or Plasma (test code = 2885-2) 7.1 g/dL 6.1-8.1 Albumin [Mass/volume] in Serum or Plasma (test code = 1751-7) 4.5 g/dL 3.6-5.1 Globulin [Mass/volume] in Serum by calculation (test code = 69746-0) 2.6 g/dL (calc) 1.9-3.7 Albumin/Globulin [Mass Ratio] in Serum or Plasma (test code = 1759-0) 1.7 (calc) 1.0-2.5 Bilirubin.total [Mass/volume] in Serum or Plasma (test code = 1975-2) 0.5 mg/dL 0.2-1.2 Alkaline phosphatase [Enzymatic activity/volume] in Serum or Plasma (test code = 6768-6) 72 U/L 37-153 Aspartate aminotransferase [Enzymatic activity/volume] in Serum or Plasma (test code = 1920-8) 23 U/L 10-35 Alanine aminotransferase [Enzymatic activity/volume] in Serum or Plasma (test code = 1742-6) 32 U/L 6-29 H [facility] MedicalHemoglobin A1c/Hemoglobin.total in [id number] 00:00:00* Test Item Value Reference Range Interpretation Comme nts Hemoglobin A1c/Hemoglobin.total in Blood (test code = 4548-4) 6.2 % of total HGB <5.7 H [facility] MedicalUrate [Mass/volume] in Serum or [id number] 00:00:00* Test Item Value Reference Range Interpretation Comme nts Urate [Mass/volume] in Serum or Plasma (test code = 3084-1) 4.1 mg/dL 2.5-7.0 [facility] W Auto Differential panel - [id number] 00:00:00* Test Item Value Reference Range Interpretation [...] volume [Entiti c volume] in Blood by Demario-Derick (test code = 776-5) 11.2 fL 7.5-12.5 Neutrophils [#/volume] in Blood by Automated count (test code = 751-8) 3431 cells/uL 6366-9599 Lymphocytes [#/volume] in Blood by Automated count [...] [facility] Notes Date/Time Note Provider Source 2024-12-26 21:34:00 [facility] ([facility] EMERGENCY PROVIDER REPORT REPORT#:[id number] REPORT STATUS: Signed DATE:12/26/24 TIME: 2133 PATIENT: MAX PANDYA UNIT #: [id number] ROOM/BED: : 67 AGE: 59 SEX: F PCP PHYS: Taylor Muhammad V FIELD STAFF SERVICE AUTHOR: Jordy Davila MD REP SRV REP SRV TM: [id number] * ALL edits or amendments must be made on the electronic/computer document * HPI-Trauma Minor/Fall Free Text HPI Notes Free Text HPI Notes 59-year-old male presenting here after a fall. She states yesterday night she fell. She states she injured her right ribs, right hip, right hand. She also reports she hit her head on the ground. She is reporting bruising to left forehead. She is reporting swelling and pain of her right hand. She also reports right rib pain and right hip pain. Denies LOC. Denies back pain, abdominal pain Patient reports previous history of left rib fracture. She denies having any left-sided chest pain at this time. General Confirmed Patient Yes Initial Greet Date/Time 12/26/242104 Presentation Chief Complaint Fall, Chest pain Risk-Trauma Minor/Fall Risk Stratification Nexus C-Spine Criteria Distracting injury pres. No: Post midline tenderness, Intoxicated, Altered LOC/ alertness, Focal neuro deficit pres. Kathryn Coma Score: Copyright Sir Prashanth Duque Copyright Sir Prashanth Duque Eye opening: (4) Spontaneous Verbal response: (5) Oriented Best motor response: (6) Obeys commands GCS Score: 15 Review of Systems ROS Statements All systems rev neg except as marked. Past Medical History - Adult Stated Complaint FALL Allergies Coded Allergies: No Known Allergies (12/26/24) Home Medications Active Scripts ACETAMINOPHEN (TYLENOL) 650 MG PO Q4H PRN PRN PAIN ACETAMINOPHEN (TYLENOL) 650 MG PO Q4H PRN PRN PAIN #100 TABS Prov: 05/07/24 ONDANSETRON ODT (ZOFRAN ODT) 4 MG PO Q6H PRN PRN NAUSEA/VOMITING ONDANSETRON ODT (ZOFRAN ODT) 4 MG PO Q6H PRN PRN NAUSEA/VOMITING #15 TABS Prov: 05/07/24 ACETAMINOPHEN (TYLENOL) 500 MG PO Q8H PRN PRN PAIN ACETAMINOPHEN (TYLENOL) 500 MG PO Q8H PRN PRN PAIN #20 TABS Prov: 12/23/24 TRIAMCINOLONE ACETONIDE (TRIAMCINOLONE 0.1% CREAM) 1 APPLIC TOPICAL BEDTIME TRIAMCINOLONE ACETONIDE (TRIAMCINOLONE 0.1% CREAM) 1 APPLIC TOPICAL BEDTIME #15 GM Prov: 11/30/24 Smoking status for patients 13 years old or older: Unknown,if ever smoked Physical Exam Vital Signs Vital Signs First Documented: Result Date Time Pulse Ox 99 12/26 2112 B/P 122/84 12/26 2112 O2 Delivery Room air 12/26 2112 Temp 36.9 12/26 2112 Pulse 86 12/26 2112 Resp 17 12/26 2112 B/P Mean 98 12/26 2201 Last Documented: Result Date Time Pulse Ox 98 12/26 2244 B/P 135/73 12/26 2244 B/P Mean 98 12/26 2244 Pulse 75 12/26 2244 Resp 12/26 O2 Delivery Room air 12/26 2112 Temp 36.9 12/26 2112 Review of Vital Signs Reviewed Free Text PE Notes Free Text PE Notes GENERAL: Awake and alert, no acute distress, non-toxic appearing. HEAD: Contusion to left forehead. Normocephalic. EYES: PERRLA. EOMI. No periorbital ecchymosis or swelling. ENT: Airway patent and intact. No facial swelling or tenderness. Nose Normal. External ears normal. NECK: No swelling or crepitus. No tracheal deviation. No C-spine tenderness. LUNGS/CHEST: Atraumatic. No respiratory distress. Clear and equal breaths sounds bilaterally. Right-sided chest wall tenderness. CARDIOVASCULAR: Regular rate and rhythm. Distal pulses intact. Capillary refill is normal. ABDOMEN: Atraumatic. Soft, nontender. No distention. No rebound or guarding. MUSCULOSKELETAL: -right upper extremity: There is swelling and tenderness to the right hand. No deformity. No swelling. ROM intact. Neurovascularly intact. -left upper extremity: No focal tenderness. No deformity. No swelling. ROM intact. Neurovascularly intact. -right lower extremity: No focal tenderness. No deformity. No swelling. ROM intact. Neurovascularly intact. -left lower extremity: No focal tenderness. No deformity. No swelling. ROM intact. Neurovascularly intact. -back: No step-offs or deformities. No thoracic or lumbar spine tenderness. -pelvis: stable. Right hip tenderness. NEUROLOGICAL: Alert and oriented x3. No focal sensory or strength deficits. Speech normal. SKIN: Warm and dry. Interpretation Diagnostics Lab Results Interpretation Considerations Independ review imaging Results Laboratory Tests 12/26/242155: [Embedded Image Not Available] Laboratory Tests: 12/27 2155 Chemistry Sodium (136 - 145 mmol/L) 140 Potassium (3.5 - 5.1 mmol/L) 3.6 Chloride (98 - 107 mmol/L) 102 Carbon Dioxide (20 - 31 mmol/L) 31.0 Anion Gap (0 - 20) 11.0 BUN (9 - 23 mg/dL) 10 Creatinine (0.60 - 1.30 mg/dL) 0.82 Estimated Creat Clear (>30 mL/min) 73 Glomerular Filtr Rate (mL/min) 83 Glucose (74 - 106 mg/dL) 143 H Calcium (8.7 - 10.4 mg/dL) 8.9 Troponin I High Sens (0 - 34 ng/L) <4 Hematology WBC (4.5 - 11.0 K/mm3) 9.0 RBC (3.80 - 5.20 M/mm3) 4.35 Hgb (12.0 - 16.0 gm/dL) 13.1 Hct (36.0 - 48.0 %) 38.9 MCV (82.0 - 99.0 UM3) 89.4 MCH (25.5 - 32.5 UUG) 30.1 MCHC (29.0 - 35.5 gm/dL) 33.7 RDW (11.5 - 15.0 %) 12.7 Plt Count (150 - 400 K/mm3) 250 MPV (7.4 - 10.4 fl) 9.5 Neut % (Auto) (49.0 - 76.0 %) 70.0 Lymph % (Auto) (23.0 - 38.0 %) 18.1 L [place] % (Auto) (1.0 - 10.0 %) 10.5 H Eos % (Auto) (1.0 - 5.0 %) 0.9 L Baso % (Auto) (0.0 - 1.0 %) 0.2 Neut # (Auto) (2.4 - 6.3 K/mm3) 6.3 Lymph # (Auto) (1.2 - 4.0 K/mm3) 1.6 [place] # (Auto) (0.0 - 0.6 K/mm3) 1.0 H Eos # (Auto) (0.0 - 0.7 K/MM3) 0.1 Baso # (Auto) (0.0 - 0.2 K/mm3) 0.0 Absolute Nucleated RBC (0.00 - 0.01 X10 3uL) 0.00 Immature Gran % (0.0 - 0.4 %) 0.3 Nucleated RBC % (0.0 - 0.1 %) 0.0 Immature Gran # (0.00 - 0.07 x10 3/uL) 0.03 Recent Impressions: RADIOLOGY - XR HAND 3 + V RT 12/26 2226 Report Impression - Status: SIGNED Entered: 12/26/20242250 Impression: Unremarkable exam. Electronically signed by: Diego Arroyo MD 12/26/2024 10:46 PM CDT RP Impression By: Ousmane Arroyo M.D. RADIOLOGY - XR WRIST 3 + V RT 12/26 2226 Report Impression - Status: SIGNED Entered: 12/26/20242250 Impression: Unremarkable exam. Electronically signed by: Diego Arroyo MD 12/26/2024 10:46 PM CDT RP Impression By: Ousmane Arroyo M.D. RADIOLOGY - XR CHEST 1 V 12/26 2226 Report Impression - Status: SIGNED Entered: 12/26/2024 2313 IMPRESSION: No acute finding Electronically signed by: Daisy Gamez MD 12/26/2024 11:11 PM CDT RP Impression By: AnastaciaDAS6 - Daisy Gamez M.D. CAT SCAN - CT C-SPINE W/O CONT 12/26 2237 Report Impression - Status: SIGNED Entered: 12/26/20242256 IMPRESSION: Unremarkable CT examination of the cervical spine. Electronically signed by: Alessio Nesbitt MD 12/26/2024 10:53 PM CDT RP Impression By: t.SDJAVON Nesbitt M.D. CAT SCAN - CT HEAD/BRAIN W/O CONT 12/26 2237 Report Impression - Status: SIGNED Entered: 12/26/20242253 IMPRESSION: Unremarkable noncontrast head CT examination. Mild left frontal scalp swelling is seen without evidence of a skull fracture. Electronically signed by: Alessio Nesbitt MD 12/26/2024 10:52 PM CDT RP Impression By: Loreta Nesbitt M.D. CAT SCAN - CT ABD PELVIS W/O CONT 12/27 2239 Report Impression - Status: SIGNED Entered: 12/26/20242307 IMPRESSION: 1. No acute posttraumatic findings in the chest, abdomen, or pelvis. 2. Nondisplaced fracture of lateral left 7th rib looks nonacute. 3. No free fluid or free air. Electronically signed by: Ellen Ulloa MD 12/26/2024 11:05 PM Maker MediaT RP Impression By: Darcy Ulloa M.D. CAT SCAN - CT CHEST W/O CONTRAST 12/27 2239 Report Impression - Status: SIGNED Entered: 12/26/20242307 IMPRESSION: 1. No acute posttraumatic findings in the chest, abdomen, or pelvis. 2. Nondisplaced fracture of lateral left 7th rib looks nonacute. 3. No free fluid or free air. Electronically signed by: Ellen Ulloa MD 12/26/2024 11:05 PM [employer] RP Impression By: Darcy Ulloa M.D. Lab Imaging Statement Laboratory radiographic studies reviewed and considered in the medical decision-making. Point of Care Testing Pulse Oximetry Pulse Ox % 99 On: Room air Interpretation Interpreted by me, Pulse oximetry normal Time 2140 ECG #1 Interpretation Text/Dict Note EKG done on December 26 at 9:37 PM. Independently reviewed and interpreted by me. Normal sinus rhythm with ventricular 83. No STEMI. Normal intervals. Free Text I D Notes Free Text I D Notes Chest x-ray independently reviewed and interpreted by me. Chest x-ray without any acute abnormalities. Re-Evaluation MDM Free Text MDM Notes Free Text MDM Notes Patient presenting here after a fall. She has right sided chest pain, right sided hip pain, and she also has swelling, tenderness, pain of right hand. Patient will undergo CT chest to rule out rib fractures, CT abdomen pelvis to evaluate for right hip fracture. We also obtain x-rays of the right wrist and hand to evaluate for fracture. Given patient with multiple distracting injuries and evidence of left forehead contusion, she will undergo CT head to rule out intracranial hemorrhage and CT C-spine to rule out C-spine fracture. She reports she already has pain medication at home consisting of Brooks and methocarbamol. Re-Evaluation/Progress #1 Text/Dict Note She is feeling better. CT head negative for intracranial hemorrhage, CT C-spine negative for C-spine fracture, CT abdomen pelvis without acute traumatic findings. Her CT chest demonstrates nonacute left seventh rib fracture consistent with history provided by patient of previous rib fracture. No other acute findings. X-rays of the right hand and wrist without acute fracture. The patient did have rings present on her right 5th and 4th fingers. The ring of the fifth finger was easily removed at the bedside. The ring on the fourth finger was not able to be removed even with use of lubrication. Therefore, I discussed with the patient that we could remove the ring off using ring cutter. She agreed to have ring removed using ring cutter. She will be discharged home. Time of Re-Eval 2341 Re-Eval Status Improved Fall/Minor Trauma MDM Note The patient presented with a complaint of a fall or minor trauma. The patient is now resting comfortably and feels better, is alert and in no distress. The patient has a normal mental status and is neurologically intact. The history, exam, diagnostic testing (if any) and current condition do not demonstrate signs of clinically significant intra-cranial, intra-thoracic, intra-abdominal, or musculoskeletal trauma. The vital signs have been stable. The patient's condition is stable and appropriate for discharge. The patient will pursue further outpatient evaluation with the primary care physician or other designated or consulting physician as indicated in the discharge instructions. ED Course Medication(s) Ordered Medication(s) Ordered: Central Nervous System Agents Sig/Calvin Start time Last Medication Dose Route Stop Time Status Admin Fentanyl Citrate 50 MCG X1ED STA 12/27 2139 DC 12/26 IV 12/26 2140 2210 Patient Discharge Departure Vital Signs/Condition Vital Signs First Documented: Result Date Time Pulse Ox 99 12/26 2112 B/P 122/84 12/26 2112 O2 Delivery Room air 12/26 2112 Temp 36.9 12/26 2112 Pulse 86 12/26 2112 Resp 17 12/26 2112 B/P Mean 98 12/26 2201 Last Documented: Result Date Time Pulse Ox 98 12/26 2244 B/P 135/73 12/26 2244 B/P Mean 98 12/26 2244 Pulse 75 12/26 2244 Resp 17 12/26 2201 O2 Delivery Room air 12/26 2112 Temp 36.9 12/26 2112 All vital signs available at the time of this entry have been reviewed. Condition Stable Clinical Impression Clinical Impression Primary Impression: Fall Secondary Impressions: Contusion of right hand, Rib pain on right side, Right hip pain, Tight ring on finger Disposition Decision Discharge )( Discharged to Home Yes )( Time 2350 )( Date 12/26/24 Discharge/Care Plan Counseled Regarding Diagnosis, Lab results, Imaging studies, Need for follow-up, When to return to ED Patient Instructions ED Fall Prevention, ED Hand Sprain, ED Mechanical Fall, ED Scalp Contusion Additional Instructions Follow-up with your primary care provider in 2-3 days. Return to the ER for worsening symptoms or any other concerning signs or symptoms. You be provided referral to hand specialist for further evaluation of your hand sprain. Referrals Provider Referral: Alessio Regalado III, MD Follow-Up: Call for appointment Notes: hand doctor Address: [facility] [place] [address] Departure Forms FREE OR [facility]ST [facility] PCP LIST Discharge Note I have spoken [...] or a call to 911. Quality Measures Minor Blunt Head Trauma CT GCS 15, NO LOC OR AMNESIA, Dangerous mech of injury , Trauma above clavicles, Criteria met, CT ordered, patient with distracting injury at 2354 RPT #:[id number] END OF REPORT [facility] 2024-11-30 00:20:00 [facility] ([facility]) EMERGENCY PROVIDER REPORT REPORT#:[id number] REPORT STATUS: Signed DATE:11/30/24 TIME: 0020 PATIENT: MAX PANDYA UNIT #: [id number] ROOM/BED: : 66 AGE: 59 SEX: F PCP PHYS: Miguelito Spring DO SERVICE AUTHOR: Jordy Davila MD REP SRV REP SRV TM: 0020 * ALL edits or amendments must be made on the electronic/computer document * HPI-Rash/Abscess/Cellulitis Free Text HPI Notes Free Text HPI Notes 59-year-old female presenting here with chief complaint of rash. She reports she started developing rash around November 21. She states rash of bilateral forearms. She reports prior to onset of rash she was at the hospital and had an IV placed to her arms. She also reports few days ago she got bit by an bites on both of her feet. Denies shortness of breath, fever, chills, nausea, vomiting abdominal pain. General Confirmed Patient Yes Initial Greet Date/Time 11/29/24 4588 Presentation Chief Complaint Rash Review of Systems ROS Statements All systems rev neg except as marked. Past Medical History - Adult Stated Complaint RASH Allergies Coded Allergies: No Known Allergies (11/30/24) Home Medications Active Scripts ACETAMINOPHEN (TYLENOL) 650 MG PO Q4H PRN PRN PAIN ACETAMINOPHEN (TYLENOL) 650 MG PO Q4H PRN PRN PAIN #100 TABS Prov: 05/07/24 ONDANSETRON ODT (ZOFRAN ODT) 4 MG PO Q6H PRN PRN NAUSEA/VOMITING ONDANSETRON ODT (ZOFRAN ODT) 4 MG PO Q6H PRN PRN NAUSEA/VOMITING #15 TABS Prov: 05/07/24 ACETAMINOPHEN (TYLENOL) 500 MG PO Q8H PRN PRN PAIN ACETAMINOPHEN (TYLENOL) 500 MG PO Q8H PRN PRN PAIN #20 TABS Prov: 08/16/24 Smoking status for patients 13 years old or older: Unknown,if ever smoked Physical Exam Vital Signs Vital Signs First Documented: Result Date Time Pulse Ox 98 12/01 3 B/P 135/60 12/01 3 O2 Delivery Room air 12/01 3 Temp 37.1 12/01 3 Pulse 67 12/01 3 Resp 18 11/30 0004 Last Documented: Result Date Time Pulse Ox 98 12/01 3 B/P 135/60 12/01 3 O2 Delivery Room air 12/01 3 Temp 37.1 12/01 3 Pulse 67 12/01 3 Resp 11/30 Review of Vital Signs Reviewed Basic Physical Exam Basic PE HEAD: Atraumatic/NC, EYES: PERRL, conj clear, ENT: Membranes moist, NECK: Supple, RESP: No resp distress, CV: Reg rate rhythm, ABD: Soft/non- tender, EXT: No gross abnormality, NEURO: alert oriented, NEURO: gross movement NL, PSYCH: NL thought content Focused PE Resp/Chest Respiratory/Chest Breath sounds NL, Breath sounds = bilat, No respiratory distress Skin Text/Dict Notes Superficial excoriations of bilateral feet. Erythema pruritic rash of right and left forearm. Interpretation Diagnostics Point of Care Testing Pulse Oximetry Pulse Ox % 98 On: Room air Interpretation Interpreted by me, Pulse oximetry normal Time 0004 Re-Evaluation MDM Free Text MDM Notes Free Text MDM Notes Patient presenting here for concern for rash to the bilateral forearms. Patient will be treated for contact dermatitis with topical steroids. She also has superficial escalations of bilateral feet which she states are from ant bites she sustained a few days ago. Patient without signs or symptoms severe allergic reaction. She will be discharged home. ED Course Medication(s) Ordered Medication(s) Ordered: Hormones And Synthetic Substit Sig/Calvin Start time Last Medication Dose Route Stop Time Status Admin Prednisone 50 MG X1ED STA 11/30 0020 DC 11/30 PO 11/30 002 0037 Patient Discharge Departure Vital Signs/Condition Vital Signs First Documented: Result Date Time Pulse Ox 98 11/30 0004 B/P 135/60 12/01 3 O2 Delivery Room air 11/30 0004 Temp 37.1 11/30 0004 Pulse 67 11/30 0004 Resp 18 11/30 0004 Last Documented: Result Date Time Pulse Ox 98 11/30 0004 B/P 135/60 11/30 0004 O2 Delivery Room air 11/30 0004 Temp 37.1 12/01 3 Pulse 67 11/30 0004 Resp 18 11/30 0004 All vital signs available at the time of this entry have been reviewed. Condition Stable Clinical Impression Clinical Impression Primary Impression: Rash Secondary Impressions: Contact dermatitis, Fire ant bite Disposition Decision Discharge )( Discharged to Home Yes )( Time 003 )( Date 11/30/24 Discharge/Care Plan Counseled Regarding Diagnosis, Prescriptions, Need for follow-up, When to return to ED (Auto) Prescriptions Current Visit Scripts TRIAMCINOLONE ACETONIDE (TRIAMCINOLONE 0.1% CREAM) 1 APPLIC TOPICAL BEDTIME TRIAMCINOLONE ACETONIDE (TRIAMCINOLONE 0.1% CREAM) 1 APPLIC TOPICAL BEDTIME #15 GM Prescriptions Reviewed Risks, Benefits, Alternative treatment Patient Instructions ED Contact Dermatitis Additional Instructions Follow-up with your primary care provider in 2-3 days. Return to the ER for worsening symptoms or any other concerning signs or symptoms. Referrals Provider Referral: Jerman Stoddard MD Address: [address] [place] [address] [address] [place] [address] Provider Referral: Ranjan Ogden MD Address: [address] [place] [address] Provider Referral: Noy Lema MD Address: [address] [place] [address] Provider Referral: Kali Leos MD Address: [address] [place] [address] [address] [place] [address] Provider Referral: Saeed Martines MD Address: [address] [place] [address] Provider Referral: Zachary Ramos MD Address: [address] [place] [address] Departure Forms [facility] PCP LIST Discharge Note I have spoken [...] department or a call to 911. at 0248 RPT #:[id number] END OF REPORT [facility] 2024-08-15 23:43:00 [facility] ([facility]) EMERGENCY PROVIDER REPORT REPORT#:[id number] REPORT STATUS: Signed DATE:08/15/24 TIME: 2342 PATIENT: MAX PANDYA UNIT #: [id number] ROOM/BED: : 66 AGE: 59 SEX: F PCP PHYS: Lizzy Prado MD SERVICE AUTHOR: Shashank Larkin MD REP SRV REP SRV TM: 2343 * ALL edits or amendments must be made on the electronic/computer document * HPI-Chest Pain 40 and Over General Initial Greet Date/Time 08/15/24 2302 Presentation Chief Complaint Chest pain Sudden in [...] imaging, Reviewed prior records Results Laboratory Tests 08/15/248: [Embedded Image Not Available] Laboratory Tests: 08/15 2319 Chemistry Sodium (136 - 145 mmol/L) 136 [...] % (Auto) (23.0 - 38.0 %) 37.1 [place] % (Auto) (1.0 - 10.0 %) 9.2 Eos % (Auto) (1.0 - 5.0 %) 3.5 Baso % (Auto) (0.0 - 1.0 %) 0.6 Neut # (Auto) (2.4 - 6.3 K/mm3) 2.7 Lymph # (Auto) (1.2 - 4.0 K/mm3) 2.0 [place] # (Auto) (0.0 - 0.6 K/mm3) 0.5 Eos # (Auto) (0.0 - 0.7 K/MM3) 0.2 Baso # (Auto) (0.0 - 0.2 K/mm3) 0.0 Immature Gran % (0.0 - 0.4 %) 0.2 Immature Gran # (0.00 - 0.07 x10 3/uL) 0.01 Urines Urine Color STRAW Urine Appearance CLEAR Urine pH (5.0 - 9.0) 6.0 Ur Specific [place] (1.000 - 1.030) 1.010 Urine Protein (NEGATIVE [...] RADIOLOGY - XR CHEST 1 V 08/15 0780 Report Impression - Status: SIGNED Entered: 08/16/2024 0009 IMPRESSION: No acute cardiopulmonary findings. Impression By: [email or web address] Kelly Chery M.D. CAT SCAN - CT ABD PELVIS W/O CONT 08/15 2347 Report Impression - Status: SIGNED Entered: 08/16/2024 0025 IMPRESSION: No significant abnormalities demonstrated. Impression By: [email or web address] Kelly Flores M.D. Lab Statement Laboratory studies reviewed [...] 08/15 2319 DC 08/15 Tromethamine IV 08/15 Differential Diagnosis )( Differential Diagnosis Acute myocardial [...] Referrals Provider Referral: Martín Camp MD Address: [address] [place] [address] Provider Referral: Jason Campbell MD Address: [address] [facility] [address] [place] [id number] Provider Referral: Yo Quarles Jr, MD Address: [address] [facility] [address] [facility] [address] Provider Referral: Surjit Chauhan MD Address: [address] [place] [address] Provider Referral: Yani Tate [facility] Address: [address] [facility] [address] [place] [id number] Departure Forms 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/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 2 Discharge Note [...] ECG for CP Performed documented at 1454 RPT #:[id number] END OF REPORT [facility]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
[2025-01-16] MEDS ORDERED: HYDROCODONE/APAP 10/325 TAB ONE (00:10)
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
--- NOTE | 2025-01-16 02:43 | RAD REPORT ---
XR HAND 3 OR MORE VIEWS RIGHT INDICATION: Pain COMPARISON: Right hand radiograph 12/26/2024 TECHNIQUE: 3 views of the right hand FINDINGS: BONES: No acute fracture or malalignment. No suspicious sclerotic or lytic lesion. SOFT TISSUE: Unremarkable. OTHER: None. IMPRESSION: No acute bony abnormality. Electronically signed by: Penelope Han MD 01/16/2025 12:58 AM CDT RP Due to temporary technical issues with the [email or web address] reporting system, reports are being zoltan d by the in-house radiologist without review as a courtesy to ensure prompt reporting the interpreting radiologist is fully responsible for the content of the report. Transcribed Date/Time: 01/16/2025 2:43 AM
[2025-01-16 03:42] VITALS: O2SAT 98
[2025-01-16 03:44] VITALS: TEMP 98.1
[2025-01-16 03:45] VITALS: BP 166/83
== END 2025-01-16 03:21 | disposition home or self-care (01) ==
LOC: ER 23:28
DX: S60.221A Contusion of right hand, initial encounter (principal); Z76.0 Encounter for issue of repeat prescription
CPT/HCPCS: 99283